=== PATIENT | female | born 1965 | race Caucasian/White ===

== ENCOUNTER 2017-12-07 21:55 | Emergency (ER) | payer OTHER ==
[2011-11-17 03:05] VITALS: BP 121/74
[2017-12-07] MEDS ORDERED: LEVALBUTEROL 1.25 MG/3 ML NEB ONE (22:25)
[2017-12-07] MEDS ORDERED: AZITHROMYCIN 250 MG TAB ONE (22:34)
--- NOTE | 2017-12-07 23:08 | ER ---
Nurse's Notes [facility] Name: Pat Bertrand Age: 52 yrs Sex: Female : 1965 Arrival Date: 12/07/2017 Time: 21:56 Bed 28 Private MD: Diagnosis: Bronchitis, not specified as acute or chronic Presentation: 12/07 22:00 Presenting complaint: Patient states: I have COPD and I have been having increasing SOB la1 throughout the day, pt respirations even and unlabored. Transition of care: patient was not received from another setting of care. Onset of symptoms was December 07, 2017. Initial Sepsis Screen: Does the patient meet any 2 criteria? No. Patient's initial sepsis screen is negative. Does the patient have a suspected source of infection? Yes: No. Patient's initial sepsis screen is negative. Care prior to arrival: None. 22:00 Method Of Arrival: Ambulatory la1 22:00 Acuity: ROSAURA 3 la1 Triage Assessment: 22:44 General: Appears in no apparent distress. General: Behavior is calm, cooperative. rk2 Respiratory: Onset: The symptoms/episode began/occurred. Respiratory: Reports shortness of breath cough that is the patient has mild shortness of breath. SURVEY TECHNOLOGIST: 22:44 unk rk2 Historical: - Allergies: 22:01 Advair Diskus; la1 22:01 Amitriptyline; la1 22:01 Cipro; la1 22:01 Codeine; la1 22:01 Crestor; la1 22:01 epi- lido combination; la1 22:01 HYDROCODONE; la1 22:01 Latex, Natural Rubber; la1 22:01 Levofloxacin; la1 22:01 Lipitor; la1 22:01 Lisinopril; la1 22:01 Metoprolol Tartrate; la1 22:01 Reglan; la1 22:01 Sulfa (Sulfonamide Antibiotics); la1 22:01 Ultram; la1 22:01 VENLAFAXINE; la1 22:01 Zantac; la1 - PMHx: 22:01 AFIB; Asthma; CFS; chronic bronchitis; COSA; CVA; Depression; Diabetes - NIDDM; garrett la1 bar; Fibromyalgia; High Cholesterol; hyperparathyroid; Hypertension; ibs; Myocardial infarction; prothrombin gene mutation; PVC; vitamin D deficincy; - Immunization history:: Adult Immunizations up to date. - Social history:: Smoking status: Patient/guardian denies using tobacco. Screenin:25 Abuse screen: Denies threats or abuse. rk2 22:25 Nutritional screening: No deficits noted. Tuberculosis screening: No symptoms or risk rk2 factors identified. Fall Risk None identified. Assessment: 22:25 Respiratory: Airway is patent. rk2 22:25 General: Appears in no apparent distress. well developed, well nourished, Behavior is rk2 calm, cooperative. Pain: Denies pain. Neuro: Level of Consciousness is alert, obeys commands, Oriented to person, place, time, situation. Cardiovascular: Rhythm is regular. Respiratory: Respiratory effort is even, unlabored, Derm: Skin is pink, warm \T\ dry. Vital Signs: 22:01 BP 134 / 78; Pulse 81; Resp 16; Temp 97.0; Pulse Ox 97% on R/A; Weight 111.13 kg; la1 Height 5 ft. 0 in. (152.40 cm); 23:22 BP 113 / 72; Pulse 89; Resp 17; Pulse Ox 97% on R/A; rk2 22:01 Body Mass Index 47.85 (111.13 kg, 152.40 cm) la1 ED Course: 21:56 Patient arrived in ED. ds1 22:01 Triage completed. la1 22:02 Arm band placed on left wrist. la1 22:05 [facility]C [facility] snw 22:05 Rohit Lockett MD is Attending Physician. snw 22:05 Britt River RN is Primary Nurse. rk2 22:25 Patient has correct armband on for positive identification. Bed in low position. Call rk2 light in reach. 22:41 Chest Pa And Lat (2 Views) XRAY Sent. rk2 22:46 Chest Pa And Lat (2 Views) XRAY In Process Unspecified. EDMS 23:23 No provider procedures requiring assistance completed. Patient did not have IV access rk2 during this emergency room visit. Administered Medications: 22:27 Drug: Xopenex 1.25 mg Route: Inhalation; rk2 23:22 Follow up: Response: No adverse reaction rk2 22:54 Drug: Zithromax 500 mg Route: PO; rk2 23:21 Follow up: Response: No adverse reaction rk2 Outcome: 23:07 Discharge ordered by MD. herrera 23:23 Discharged to home ambulatory. rk2 23:23 Condition: good 23:23 Discharge instructions given to patient, Prescriptions given X 2. 23:23 Patient left the ED. rk2 Signatures: Dispatcher [employer] EDMS Shira Luque, ROSA-C DRAGLINE MECHANIC-Margarita Mckenna ds1 Yogesh Giraldo RN RN la1 Britt River RN RN rk2
--- NOTE | 2017-12-07 23:08 | EDPHYS ---
Physician Documentation [facility] Name: Pat Bertrand Age: 52 yrs Sex: Female : 1965 Arrival Date: 12/07/2017 Time: 21:56 Bed 28 Private MD: ED Physician Rohit Lockett HPI: 12/07 22:32 This 52 yrs old Female presents to ER via Ambulatory with complaints of snw Breathing Difficulty. 22:32 The patient has shortness of breath with light activity. Onset: The symptoms/episode snw began/occurred suddenly, yesterday. Duration: The symptoms are continuous. The patient's shortness of breath has no apparent modifying factors. Severity of symptoms: At their worst the symptoms were moderate. The patient has experienced similar episodes in the past, pt states q 6 weeks lately. The patient has not recently seen a physician, the patient's primary care provider is Dr. Dr. Watkins. SHAREPOINT SPECIALIST: 22:44 unk rk2 Historical: - Allergies: 22:01 Advair Diskus; la1 22:01 Amitriptyline; la1 22:01 Cipro; la1 22:01 Codeine; la1 22:01 Crestor; la1 22:01 epi- lido combination; la1 22:01 HYDROCODONE; la1 22:01 Latex, Natural Rubber; la1 22:01 Levofloxacin; la1 22:01 Lipitor; la1 22:01 Lisinopril; la1 22:01 Metoprolol Tartrate; la1 22:01 Reglan; la1 22:01 Sulfa (Sulfonamide Antibiotics); la1 22:01 Ultram; la1 22:01 VENLAFAXINE; la1 22:01 Zantac; la1 - PMHx: 22:01 AFIB; Asthma; CFS; chronic bronchitis; COSA; CVA; Depression; Diabetes - NIDDM; garrett la1 bar; Fibromyalgia; High Cholesterol; hyperparathyroid; Hypertension; ibs; Myocardial infarction; prothrombin gene mutation; PVC; vitamin D deficincy; - Immunization history:: Adult Immunizations up to date. - Social history:: Smoking status: Patient/guardian denies using tobacco. ROS: 22:31 Constitutional: Negative for fever, chills, and weight loss, Eyes: Negative for injury, snw pain, redness, and discharge, ENT: Negative for injury, pain, and discharge, Neck: Negative for injury, pain, and swelling, Cardiovascular: Negative for chest pain, palpitations, and edema, Respiratory: Negative for shortness of breath and chest pain + bronchitic cough, no wheezing or pleuritic chest pain, Abdomen/GI: Negative for abdominal pain, nausea, vomiting, diarrhea, and constipation, Back: Negative for injury and pain, : Negative for injury, bleeding, discharge, and swelling, MS/Extremity: Negative for injury and deformity, Skin: Negative for injury, rash, and discoloration, Neuro: Negative for headache, weakness, numbness, tingling, and seizure. Exam: 22:30 Constitutional: This is a well developed, well nourished patient who is awake, alert, snw and in no acute distress. Head/Face: Normocephalic, atraumatic. Eyes: Pupils equal round and reactive to light, extra-ocular motions intact. Lids and lashes normal. Conjunctiva and sclera are non-icteric and not injected. Cornea within normal limits. Periorbital areas with no swelling, redness, or edema. ENT: Nares patent. No nasal discharge, no septal abnormalities noted. Tympanic membranes are normal and external auditory canals are clear. Oropharynx with no redness, swelling, or masses, exudates, or evidence of obstruction, uvula midline. Mucous membranes moist. Neck: Trachea midline, no thyromegaly or masses palpated, and no cervical lymphadenopathy. Supple, full range of motion without nuchal rigidity, or vertebral point tenderness. No Meningismus. Chest/axilla: Normal chest wall appearance and motion. Nontender with no deformity. No lesions are appreciated. Cardiovascular: Regular rate and rhythm with a normal S1 and S2. No gallops, murmurs, or rubs. Normal PMI, no JVD. No pulse deficits. Abdomen/GI: Soft, non-tender, with normal bowel sounds. No distension or tympany. No guarding or rebound. No evidence of tenderness throughout. Back: No spinal tenderness. No costovertebral tenderness. Full range of motion. Skin: Warm, dry with normal turgor. Normal color with no rashes, no lesions, and no evidence of cellulitis. MS/ Extremity: Pulses equal, no cyanosis. Neurovascular intact. Full, normal range of motion. Neuro: Awake and alert, GCS 15, oriented to person, place, time, and situation. Cranial nerves II-XII grossly intact. Motor strength 5/5 in all extremities. Sensory grossly intact. Cerebellar exam normal. Normal gait. 22:30 Respiratory: the patient does not display signs of respiratory distress, Respirations: no acute changes, Breath sounds: are clear throughout, bronchitic cough. Vital Signs: 22:01 BP 134 / 78; Pulse 81; Resp 16; Temp 97.0; Pulse Ox 97% on R/A; Weight 111.13 kg; la1 Height 5 ft. 0 in. (152.40 cm); 23:22 BP 113 / 72; Pulse 89; Resp 17; Pulse Ox 97% on R/A; rk2 22:01 Body Mass Index 47.85 (111.13 kg, 152.40 cm) la1 MDM: 22:05 Patient medically screened. snw 23:07 Data reviewed: vital signs, nurses notes. Data interpreted: Pulse oximetry: on room air snw is 97 %. Interpretation: normal. 12/07 22:20 Order name: Chest Pa And Lat (2 Views) XRAY snw Administered Medications: 22:27 Drug: Xopenex 1.25 mg Route: Inhalation; rk2 23:22 Follow up: Response: No adverse reaction rk2 22:54 Drug: Zithromax 500 mg Route: PO; rk2 23:21 Follow up: Response: No adverse reaction rk2 Disposition: 12/08 01:52 Co-signature as Attending Physician, Rohit Lockett MD. va2 Disposition: 12/07/17 23:07 Discharged to Home. Impression: Bronchitis, not specified as acute or chronic. - Condition is Stable. - Discharge Instructions: Acute Bronchitis, Cool Mist Vaporizers. - Prescriptions for Albuterol Sulfate 90 mcg/actuation Inhalation - inhale 2 puff by INHALATION route every 4-6 hours; 1 Inhaler. Zithromax 500 mg Oral Tablet - take 1 tablet by ORAL route once daily for 5 days; 5 tablet. - Medication Reconciliation Form, Thank You Letter, Antibiotic Education, Prescription Opioid Use form. - Follow up: Private Physician; When: 2 - 3 days; Reason: Recheck today's complaints, Continuance of care, Re-evaluation by your physician. Follow up: Emergency Department; When: As needed; Reason: Worsening of condition. Signatures: Dispatcher [employer] EDMS Shira Luque, FUEL AGENT-C FUEL AGENT-Csnw Yogesh Giraldo RN RN la1 Rohit Lockett MD MD ma2 Britt River RN RN rk2 Corrections: (The following items were deleted from the chart) 12/07 23:23 23:07 12/07/2017 23:07 Discharged to Home. Impression: Bronchitis, not specified as rk2 acute or chronic. Condition is Stable. Forms are Medication Reconciliation Form, Thank You Letter, Antibiotic Education, Prescription Opioid Use. Follow up: Private Physician; When: 2 - 3 days; Reason: Recheck today's complaints, Continuance of care, Re-evaluation by your physician. Follow up: Emergency Department; When: As needed; Reason: Worsening of condition. snw
--- NOTE | 2017-12-08 11:33 | RAD REPORT ---
EXAM DESCRIPTION: RAD - Chest Pa And Lat (2 Views) - 12/07/2017 10:49 pm CLINICAL HISTORY: Shortness of breath COMPARISON: 01/28/2017, 12/20/2015 FINDINGS: The lungs are clear. The heart is upper limit of normal in size. Dual lead pacer device is place. No displaced fractures.
== END 2017-12-07 23:23 | disposition home or self-care (01) ==
LOC: ER 21:55
DX: J40 Bronchitis, not specified as acute or chronic (principal); I10 Essential (primary) hypertension; I25.2 Old myocardial infarction; Z88.1 Allergy status to other antibiotic agents; Z88.2 Allergy status to sulfonamides; Z88.5 Allergy status to narcotic agent; Z88.8 Allergy status to other drugs, medicaments and biological substances; Z91.040 Latex allergy status
CPT/HCPCS: 71046; 99284

== ENCOUNTER 2019-06-15 06:02 | Day surgery (SDC) | payer OTHER ==
--- NOTE | 2019-06-12 10:42 | RAD REPORT ---
EXAM DESCRIPTION: RAD - Chest Pa And Lat (2 Views) - 06/12/2019 10:35 am CLINICAL HISTORY: preop Chest pain. COMPARISON: Chest Pa And Lat (2 Views) dated 12/07/2017; Chest Single View dated 01/28/2017; Chest Pa A nd Lat (2 Views) dated 12/20/2015; CHEST SINGLE VIEW dated 07/08/2012 FINDINGS: The lungs are clear. The heart is normal in size. No displaced fractures. Dual lead pacer device is in place. IMPRESSION: No acute or concerning finding suspected.
[2019-06-12 11:10] LABS: Absolute Lymphocytes (CBC) 2.7 K/uL (0.7-4.9); Hematocrit 39.1 % (36.0-45.0); Lymphocytes % 34.8 % (15.3-44.8); MPV 9.5 fL (7.6-11.3); RBC Red Blood Cell Count 4.33 M/uL (3.86-4.86)
[2019-06-12 11:15] LABS: Protime INR 1.79
--- OUTSIDE RECORDS SUMMARY | 2019-06-15 06:08 | XMS REPORT | Summary of Care ---
:1966 Author Name NIK PEÑA N.P. Address Unavailable Unavailable , Care Team Providers Name Role Phone NIK PEÑA N.P. Unavailable Unavailable KATHLEEN MONTANO, ANDRIA CHISHOLM Unavailable Unavailable JOSE ALFARO [place], EDI Caba Unavailable Unavailable XENIA MONTANO [place], GEORGINA Haines Unavailable Unavailable Unavailable Unavailable Unavailable Functional Status Name Dates Details Functional status health issues are not documented Status: Name Dates Details Cognitive status health issues are not documented Status: Problems Name Dates Details Malabsorption due to intolerance, not elsewhere classified (579.8, K90.49) Status: Active Malnutrition (263.9, E46) Status: Active Vitamin D deficiency (268.9, E55.9) Status: Active Medications Name Dates Details Vitamin D (Ergocalciferol) 97741 UNIT Oral Capsule Take 1 capsule two times per week Quantity: 8 Refills: 3 NIK PEÑA N.P. Start : 24-Dec-2017 Active Allergies and Adverse Reactions Name Dates Details Allergy history not documented Status: Past Medical History Name Dates Details History of Malabsorption due to intolerance, not elsewhere classified (579.8, K90.49) Status: Resolved History of Malabsorption due to intolerance, not elsewhere classified (579.8, K90.49) Status: Resolved History of malnutrition (V12.1, Z86.39) Status: Resolved History of malnutrition (V12.1, Z86.39) Status: Resolved Procedures Procedure Dates Details [LH] CBC (without differential) Date: 06-Oct-2018 [QL] COMPREHENSIVE METABOLIC PANEL W/O eGFR Date: 06-Oct-2018 [QLH] FOLATE, SERUM Date: 06-Oct-2018 [QLH] HEMOGLOBIN A1c Date: 06-Oct-2018 [QL] IRON AND TOTAL IRON BINDING CAPACITY Date: 06-Oct-2018 [QL] LIPID PANEL Date: 06-Oct-2018 [QL] PTH, INTACT (WITHOUT CALCIUM) Date: 06-Oct-2018 [QL] TSH, 3RD GENERATION Date: 06-Oct-2018 [QL] VITAMIN A (RETINOL) Date: 06-Oct-2018 [[facility]] VITAMIN B1, WHOLE BLOOD Date: 06-Oct-2018 [[facility]] VITAMIN B12 Date: 06-Oct-2018 [[facility]] VITAMIN D, 25-HYDROXY, LC/MS/MS Date: 06-Oct-2018 [[facility]] VITAMIN E (TOCOPHEROL) Date: 06-Oct-2018 Immunization Name Dates Details Immunizations not documented Social History Name Dates Details Unknown if ever smoked Vital Signs Date Test Result Details No Known Vitals to report Results Date Description Value Details Results not documented Plan of Care Name Dates Details Planned Observations Planned Goals not documented Planned Encounters Appointment; NIK PEÑA NP On: 06-Oct-2018 12:30 Interventions Provided Labs/Procedures/Imaging[] CBC (without differential); To Be Done: 06 Oct 2018[ ] COMPREHENSIVE METABOLIC PANEL W/O eGFR; To Be Done: 06 Oct 2018[[facility]] FOLATE , SERUM; To Be Done: 06 Oct 2018[[facility]] HEMOGLOBIN A1c; To Be Done: 06 Oct 2018[ [facility]] IRON AND TOTAL IRON BINDING CAPACITY; To Be Done: 06 Oct 2018[[facility]] LIPID PANEL; To Be Done: 06 Oct 2018[[facility]] PTH, INTACT (WITHOUT CALCIUM); To Be Done: 06 Oct 2018[[facility]] TSH, 3RD GENERATION; To Be Done: 06 Oct 2018[[facility]] VITAMIN A ( RETINOL); To Be Done: 06 Oct 2018[[facility]] VITAMIN B1, WHOLE BLOOD; To Be Done: 06 Oct 2018[[facility]] VITAMIN B12; To Be Done: 06 Oct 2018[[facility]] VITAMIN D, 25-HYDROXY, LC/MS/MS; To Be Done: 06 Oct 2018[[facility]] VITAMIN E (TOCOPHEROL); To Be Done: 06 Oct 2018 Instructions Name Dates Details Instructions not documented Encounters Appointment; EDI GARCIA DPM On: 21-Dec-2016 11:15 Encounter Diagnosis: Problem not documented Appointment; EDI GARCIA DPM On: 09-Jan-2017 11:30 Encounter Diagnosis: Problem not documented Appointment; EDI GARCIA DPM On: 18-Jan-2017 8:45 Encounter Diagnosis: Problem not documented Appointment; EDI GARCIA DPM On: 15-Feb-2017 8:45 Encounter Diagnosis: Problem not documented Appointment; GEORGINA MICHAELS M.D. On: 16-Dec-2017 8:30 Encounter Diagnosis: Problem not documented Appointment; JULIUS LINDQUIST RD On: 09-Jan-2018 13:00 Encounter Diagnosis: Problem not documented Appointment; NIK PEÑA NP On: 24-Jan-2018 13:30 Encounter Diagnosis: Problem not documented Appointment; JULIUS LINDQUIST RD On: 20-Feb-2018 12:45 Encounter Diagnosis: Problem not documented Appointment; JULIUS LINDQUIST RD On: 20-Mar-2018 15:00 Encounter Diagnosis: Problem not documented Appointment; GEORGINA MICHAELS M.D. On: 02-Apr-2018 10:00 Encounter Diagnosis: Problem not documented Appointment; GEORGINA MICHAELS M.D. On: 14-Apr-2018 9:00 Encounter Diagnosis: Problem not documented Appointment; NIK PEÑA NP On: 02-May-2018 13:30 Encounter Diagnosis: Problem not documented Appointment; GEORGINA MICHAELS M.D. On: 26-May-2018 10:00 Encounter Diagnosis: Problem not documented Appointment; NIK PEÑA NP On: 04-Jul-2018 12:45 Encounter Diagnosis: Problem not documented Appointment; NIK PEÑA NP On: 07-Jul-2018 12:30 Encounter Diagnosis: Problem not documented Appointment; NIK PEÑA NP On: 06-Oct-2018 12:30 Encounter Diagnosis: Problem not documented
[2019-06-15] MEDS ORDERED: NA CHLORIDE 0.9% 1,000 ML ONE (06:18)
[2019-06-15 07:19] LABS: Protime INR 1.12
[2019-06-15] MEDS ORDERED: PROPOFOL 200 MG/20 ML VIAL IV ONE ×2 (08:16→10:04)
[2019-06-15] MEDS ORDERED: FENTANYL CITR 100 MCG/2 ML ONE ×2 (08:16→10:04)
[2019-06-15] MEDS ORDERED: LIDOCAINE 2% MPF 5 ML VIAL ONE ×3 (08:17→10:04)
[2019-06-15] MEDS ORDERED: MIDAZOLAM HCL 2 MG/2 ML INJ ONE ×2 (08:17→10:04)
[2019-06-15] MEDS ORDERED: dexAMETHasone 10 MG/ML VIAL ONE ×2 (08:17→08:35)
[2019-06-15] MEDS ORDERED: ONDANSETRON 4 MG/2 ML VIAL ONE ×2 (08:18→10:04)
[2019-06-15] MEDS ORDERED: NS 0.9% VIAL 0 ML ONE (08:34)
[2019-06-15] MEDS ORDERED: ROPLVACAINE HCL 0 ML ONE (08:35)
[2019-06-15] MEDS ORDERED: CEFAZOLIN/SWI 1gm 1 GM/10 ML SYR ONE (10:10)
--- NOTE | 2019-06-15 10:51 | RAD REPORT ---
EXAM DESCRIPTION: US - Brst,Preop NL Wire Init w/Guid - 06/15/2019 9:57 am CLINICAL HISTORY: BREAST MASS/CYST, right breast with knee localization x2 COMPARISON: Prior mammogram and ultrasound studies March and July 2018 TECHNIQUE: Needle localization was performed of 2 masses in the right breast. The localization proce dure for both lesions detailed on the other localization report. IMPRESSION: Right breast needle localization procedure x2. Please see the other localization report.
--- NOTE | 2019-06-15 11:00 | RAD REPORT ---
EXAM DESCRIPTION: US - Brst,Preop NL Wire Init w/Guid - 06/15/2019 9:57 am CLINICAL HISTORY: MASSx2, right breast COMPARISON: Mammogram and ultrasound studies July and March 2019 TECHNIQUE: Patient presents for preoperative needle localization of 2 masses previously detailed. Pr ior March ultrasound study detailed a 5 x 4 mm hypoechoic mass in the 12 o'clock right breast. An additional 4 x 3 mm hypoechoic oval mass present in the 2 o'clock right breast. Preliminary imaging identified the small 5 mm hypoechoic mass in the 11 o'clock right breast 1 centim eter deep to the skin surface. This matches the prior imaging. Preliminary imaging also identified th e small oval anechoic to hypoechoic mass in the 2 o'clock right breast. Preliminary imaging also iden tified that the patient has prominent tortuous ducts. No intraductal mass was identified on this pre surgical exam. Consent had been obtained as part of the surgical is consent. Right breast was prepped and draped in the usual sterile fashion. From a medial approach skin and thomas per tissues were anesthetized with 1% lidocaine. A 5 centimeter long [place] mammo lock needle was adva nced. Tip was placed and abutted the inferior margin of the 11 o'clock mass. Also from a medial approach the 2 o'clock mass was localized. Skin and deeper tissues were anesthetiz ed with 1% lidocaine. A [place] mammo lock 5 centimeter long needle was advanced. Tip was placed at the inferior margin of the small mass and hook wire set. Patient tolerated procedure well and was transferred back to the surgical holding area pending excisi onal biopsy. IMPRESSION: Right breast needle localization x2 as detailed above.
[2019-06-15] MEDS ORDERED: Mastisol Adhesive Liq ONE (11:07)
--- NOTE | 2019-06-15 11:16 | P.BOP ---
Preoperative diagnosis: tender right breast mass x 2 Postoperative diagnosis: same Primary procedure: Right breast lumpectomy x 2 neddle localized Service Line Coordinator: JIA MONTOYA (GROUNDS MAINTENANCE WORKER) Estimated blood loss: <10cc Specimen: lump x 2 Findings: lesion within the specimen with two intact wires by dr norton. Anesthesia: General Complications: None Transferred to: Recovery Room Condition: Good
--- NOTE | 2019-06-15 11:22 | RAD REPORT ---
EXAM DESCRIPTION: US - Surgical Specimen - 06/15/2019 11:04 am FINDINGS: A single surgical specimen was obtained incorporating both areas of localization Evaluation of the surgical specimen shows both lesions to be contained within the specimen. The addit ional tortuous ducts and hypoechoic masses in this region of the breast also seen.
[2019-06-15] MEDS: MORPHINE 4 MG/ML SYR ONE ×2 (11:33→11:41)
[2019-06-15 11:46] VITALS: O2SAT 100
[2019-06-15] MEDS ORDERED: IBUPROFEN 200 MG TAB PO ONE (12:32)
[2019-06-15] MEDS ORDERED: IBUPROFEN 400 MG TAB ONE (12:33)
[2019-06-15 12:49] VITALS: BP 121/84; TEMP 97.1
--- NOTE | 2019-06-16 01:18 | OP ---
Date of Procedure: 06/15/2019 Surgeon: Bob Carr MD Hearing Aid Repairer: Kathya Rea. Preoperative Diagnosis: Two tender right breast masses at about 12 o'clock and 2 o'clock. Postoperative Diagnosis: Two tender right breast masses at about 12 o'clock and 2 o'clock. Procedure: Right breast lumpectomy at 12 o'clock needle localized and another right breast lumpectom y at 2 o'clock needle localized. Estimated Blood Loss: Less than 10 mL. Specimens: Lumps x2. Findings: Lesion within the specimen by Dr. Vance with intact wires. Anesthesia: General. Indications: This is the case of a 54-year-old patient, who comes with 2 masses. She wants one of t hem excised. There is pain and discomfort. She understands the pathology. She understood her optio ns. She still wanted it excised. Since they are deep, I asked her if we can remove that and if we c an localize that area with a radiologist and she did agree. Patient [facility] this [facility], where she received localization of the 2 areas and then moved to the OR and making sure the nee dle are intact without any dislodgement on arrival. We explained the patient the benefits, alternati ves, and risks of excision, which included, but not limited to infection, bleeding, damage to adjacen t structures, anesthesia complication, seroma, hematoma, abscess, [place], even . She also understan ds this may not relieve any symptoms. She might need more than one surgical intervention. Description Of Procedure: When she came from [facility]iology [facility], patient was brought to the operating r oom, placed in supine position. Anesthesia was done without complication. The right chest and breas t were prepped and draped in sterile fashion making sure we do not dislodge the needles. [place] wer e left intact. I had noted that if we make 1 incision, we can address 2 issues at the same time sinc e that is not that far away. So, we made 1 simple incision. Identified the wire in each side. Tres dontae the needle. Kept the wire was fixed to the tissue with an Allis clamp. Same with the second one and we were able to remove 1 core of tissue, sent to the radiologist, who confirmed the wires were i ntact and serial lesions within the specimen. The area was irrigated. Hemostasis obtained. Then, w e proceeded to close the area with 3-0 chromic and Steri-Strips on top. Sponge count and instrument counts were correct. Patient tolerated the procedure well. Patient was sent to recovery in stable c ondition. JOO/MABER Voice ID: [id number] Report ID: [id number]
--- NOTE | 2019-06-16 01:24 | DS ---
Date of Discharge: 06/15/2019 Diagnosis: Tender right breast mass x2. Procedure: Right breast lumpectomy x2, needle localized. Disposition: Home. Activity: As tolerated. No heavy lifting. Followup: Follow up in my office in 1 week. Call for appointment [phone]. Discharge Instructions: Keep area dry for 48 hours, then may shower. Keep Steri-Strips intact. Pat ient advised to use breast support. Discharge Medications: For medications, see orders. JOO/AMBER Voice ID: [id number] Report ID: [id number]
== END 2019-06-15 13:25 | disposition home or self-care (01) ==
LOC: OR 06:02
PROVIDERS: ATTEND Surgery
PROC: 0HBT0ZZ Excision of Right Breast, Open Approach (ICD-10-PCS; principal; 2019-06-15 09:30)
DX: D24.1 Benign neoplasm of right breast (principal); N60.21 Fibroadenosis of right breast; E11.9 Type 2 diabetes mellitus without complications; I10 Essential (primary) hypertension; I48.91 Unspecified atrial fibrillation; J44.9 Chronic obstructive pulmonary disease, unspecified; G47.30 Sleep apnea, unspecified; J45.909 Unspecified asthma, uncomplicated; M79.7 Fibromyalgia; M19.90 Unspecified osteoarthritis, unspecified site; E21.3 Hyperparathyroidism, unspecified; K58.9 Irritable bowel syndrome, unspecified; K76.0 Fatty (change of) liver, not elsewhere classified; I25.2 Old myocardial infarction; E66.9 Obesity, unspecified; Z68.42 Body mass index [BMI] 45.0-49.9, adult; Z95.0 Presence of cardiac pacemaker; Z86.73 Personal history of transient ischemic attack (TIA), and cerebral infarction without residual deficits; Z79.01 Long term (current) use of anticoagulants; Z88.2 Allergy status to sulfonamides; Z88.6 Allergy status to analgesic agent; Z88.8 Allergy status to other drugs, medicaments and biological substances; Z90.49 Acquired absence of other specified parts of digestive tract; Z91.040 Latex allergy status; Z80.49 Family history of malignant neoplasm of other genital organs; Z82.49 Family history of ischemic heart disease and other diseases of the circulatory system
CPT/HCPCS: 85025; 80048; 36415 ×2; 85610 ×2; 82947 ×2; 88305; 85730 ×2; 71046; 19286; 76098; 19285; 19301; J2704; J2250; J3010; J0690; J7030; J2405; J1100; J2795

== ENCOUNTER 2020-06-15 10:00 | Day surgery (SDC) | payer OTHER ==
[2011-11-17 03:05] VITALS: BP 121/74
--- NOTE | 2020-06-15 14:40 | RAD REPORT ---
EXAM DESCRIPTION: US - Breast Core BX w/US Guidance - 06/15/2020 11:44 am CLINICAL HISTORY: N63.14, N63.23, N63.22 COMPARISON: Mammogram and ultrasound studies May 23, 2020 TECHNIQUE: The patient presents for ultrasound-guided biopsy of a previously detailed right breast m ass and 3 masses of the left breast. MRI imaging was recommended for the patient after mammography ; however, due to a pacemaker, the patient cannot undergo that examination. The ultrasound-guided core biopsy procedure, risks and alternatives were discussed with the patient i n detail. After answering all questions, both oral and written consent were obtained. Time out proced ure was performed. Patient had no contraindicated allergy. Patient was off Coumadin for 3 days prior to the procedure. Prior imaging studies were reviewed. The initial mass be biopsied was the 8 x 8 x 4 mm hypoechoic lesion in the 7 o'clock right breast. Th e right breast was prepped and draped in the usual sterile fashion. From an inferior approach, skin a nd deeper tissues were anesthetized with 1% lidocaine. Under direct sonographic visualization a 14 ga uge vacuum assisted core biopsy needle was advanced and placed at the margin of the mass. There were a total of 2 core biopsies obtained under direct sonographic guidance. The mass did appear to have di stortion in contour supporting transit of the biopsy needle through the small mass. At the conclusion of the procedure under sonographic guidance a post biopsy clip was placed. The second mass subjected to biopsy was a 7 millimeter oval hypoechoic mass in the 6 o'clock left john ast. The mass was again identified. The left breast was prepped and draped for all 3 lesions. For thi s biopsy procedure from a lateral approach the skin and deeper tissues were anesthetized with 1% lido darrin. Under sonographic guidance a 14 gauge vacuum assisted biopsy needle was advanced and placed at the lateral margin of the mass. There were a total of 2 core biopsies obtained. The mass does appear to be distorted in contour indicating transit of the biopsy needle through the mass. Under sonograph ic guidance a localization clip was placed. The third lesion subjected to biopsy was a 6-7 mm mostly cystic mass superficial 12 o[address] From a lateral approach the skin and deeper tissues were anesthetized with 1% lidocaine. The cyst ic mass had a small 3 mm solid nodule along the medial margin. Under sonographic guidance a 22 gauge needle was used to access the cystic mass which was partially aspirated. The aspirate was retained an d given to pathology for part of the histology assessment. Through the same access site a 14 gauge bi opsy needle was advanced. The biopsy traverse the cystic component with the primary focus of the need le directed towards the small soft tissue mass component. After initial biopsy the cystic component c ollapsed. The small mural nodule component was no longer distinguishable from the surrounding tissues . No additional biopsy performed. Under sonographic guidance and localization clip was placed. The fourth and final lesions subjected to biopsy was approximately 10 millimeter oval hypoechoic mass in the 10 o'clock left breast. From a lateral approach the skin and deeper tissues were anesthetized with 1% lidocaine. A 14 gauge biopsy needle was advanced under sonographic guidance and placed at th e lateral margin. A total of 3 14 gauge biopsies were obtained through this mass. At the conclusion o f the procedure under sonographic guidance a localization clip was placed. After each biopsy, hemostasis was obtained at the skin surface and at the puncture site. Biopsy sites were monitored throughout the course of the procedure. No hematoma identifiable at any of the biopsy sites. Sterile bandaging placed at each puncture site. Patient tolerated the procedure well with no apparent complications at the conclusion of the fourth a nd final biopsy. Postprocedure care and precaution instructions were discussed with the patient. All biopsy material was given to pathology for cytology/histology assessment. IMPRESSION: 1. Ultrasound-guided core biopsy was performed of the right breast mass and 3 left breas t masses. All obtained material was given to pathology for histologic assessment. 2. Post biopsy localization clip was placed under ultrasound guidance at each biopsy site.
--- NOTE | 2020-06-16 08:30 | RAD REPORT ---
EXAM DESCRIPTION: US - Breast Core BX Addtnl - 06/15/2020 11:44 am CLINICAL HISTORY: MASS [id number] breast masses for ultrasound-guided biopsy COMPARISON: Mammography and sonography studies May 23, 2020 TECHNIQUE: The patient presented for ultrasound-guided biopsy of one right breast mass and three lef t breast masses. MRI was recommended for the patient; however, the presence of a pacemaker precluded that study from being performed. The right breast mass and three left breast masses were subjected to biopsy. The report of the proced ure and findings for the second-fourth biopsies incorporated into the initial biopsy report. IMPRESSION: 1. Ultrasound-guided biopsy was performed of one right breast mass and three left breast masses. 2. The procedure and findings for the second-fourth biopsies and post biopsy clip placements incorpor ated into the initial biopsy report.
--- NOTE | 2020-06-16 08:38 | RAD REPORT ---
EXAM DESCRIPTION: US - Breast Core BX Addtnl - 06/15/2020 11:44 am CLINICAL HISTORY: Bilateral breast masses for ultrasound-guided biopsy COMPARISON: Mammography and sonography studies May 23, 2020 TECHNIQUE: The patient presented for ultrasound-guided biopsy of one right breast mass and three lef t breast masses. MRI was recommended for the patient; however, the presence of a pacemaker precluded that study from being performed. The right breast mass and three left breast masses were subjected to biopsy. The report of the proced ure and findings for the second-fourth biopsies incorporated into the initial biopsy report. IMPRESSION: 1. Ultrasound-guided biopsy was performed of one right breast mass and three left breast masses. 2. The procedure and findings for the second-fourth biopsies and post biopsy clip placements incorpor ated into the initial biopsy report.
--- OUTSIDE RECORDS SUMMARY | 2020-08-18 09:27 | XMS REPORT | Clinical Summary ---
:1965 Author Organization [facility] Address [address] [place] [address] Care Team Providers Name Role Phone June Guzman MD, Zach Primary Care Provider Allergies Active Allergy Reactions Severity Noted Date Comments Sulfamethoxazole-Trimeth Rash Low 02/13/2019 oprim Ciprofloxacin Anaphylaxis High 02/13/2019 Codeine Itching 02/13/2019 "Internal itchi ng" Rosuvastatin Other (See Comments) 02/13/2019 Body ac hes, urinary difficulty Hydrocodone Itching 02/13/2019 Latex Rash Low 02/13/2019 Levofloxacin Anaphylaxis High 02/13/2019 Quinolones Anaphylaxis High 02/13/2019 Sulfa (Sulfonamide Rash Low 02/13/2019 Antibiotics) Tramadol Other (See Comments) 02/13/2019 "Stops breathing" Medications Medication Sig Dispensed Refills Start Date End Date Status warfarin (COUMADIN) 4 MG Take 4 mg by 0 Active tablet mouth daily. warfarin (COUMADIN) 1 MG Take 0.5 mg 0 Active tablet by mouth daily. metFORMIN XR Take 1,000 mg 0 Act [place] (GLUCOPHAGE-XR) 500 mg 24 by mouth 2 hr tablet (two) times a day. insulin 70/30 NPH and Inject 30 0 Active regular human (HumuLIN Units under 70/30) 100 unit/mL (70-30) the skin 2 injection (two) times a day. pravastatin (PRAVACHOL) 40 Take 40 mg by 0 Active MG tablet mouth daily. cetirizine (ZyrTEC) 10 MG Take 10 mg by 0 Active tablet mouth daily. hydroCHLOROthiazide Take 25 mg by 0 Active (HYDRODIURIL) 25 MG tablet mouth daily. DULoxetine (CYMBALTA) 60 MG Take 60 mg by 0 Active capsule mouth daily. DULoxetine (CYMBALTA) 30 MG Take 30 mg by 0 Active capsule mouth daily. Active Problems Not on file Surgical History Surgery Date Site/Laterality Comments HYSTERECTOMY TOTAL ABDOMINAL BREAST LUMPECTOMY benign TONSILLECTOMY AND ADENOIDECTOMY CHOLECYSTECTOMY, LAPAROSCOPIC SECTION TUBAL LIGATION TRIGGER FINGER RELEASE Left SEPTOPLASTY INSERT / REPLACE / REMOVE PACEMAKER CARDIAC ELECTROPHYSIOLOGY 02/13/2019 N/A Proced ure: EP REMOVE PROCEDURE REPLACE PACEMAKE R GENERATOR; Surg lisy: Iva Che Jr., MD; Location: [facility] Formulation Chemist Invasive Locatio n; Service: Cardiov ascular; Laterality: N/A; Medical devices from this surgery are in t he Implants section . Medical History Medical History Date Comments Asthma Bronchitis Chronic Bundle branch block, right AV block, 1st degree Coronary artery disease Heart attack (HCC) x2 Stroke (HCC) 2010, 2014 Atrial fibrillation (HCC) Hypertension Pulmonary embolism (HCC) Diabetes (HCC) Prothrombin gene mutation (HCC) Family History Medical History Relation Name Comments Arrhythmia Mother Relation Name Status Comments Mother Social History Tobacco Use Types Packs/Day Years Used Date Never Smoker Smokeless Tobacco: Never Used Alcohol Use Drinks/Week oz/Week Comments Never Alcohol Habits Answer Date Recorded How often do you have a drink containing alcohol? Never 02/13/2019 How many drinks containing alcohol do you have on a typical Not asked day when you are drinking? How often do you have six or more drinks on one occasion? No t asked Sex Assigned at Date Recorded Not on file Last Filed Vital Signs Not on file Plan of Treatment Not on file Implants Implanted Type Area Insurance Billing Clerk Device Shelf Model / Identifier Expiration Serial / Date Lot Assurity Mri Dual - [id number] Cardiac Pacemaker N/A: 03/28/2020 [id number] / Implanted: Qty: 1 on 02/13/2019 by Iva Che Jr., M D at [facility] Generators N/A [id number] / [id number] Envelope Pcemkr Antbactl Fully Resorb Aigisrxr - [id number] Cardiovascular N/A: [employer] [id number] / Implanted: 02/13/2019 at [facility] (Quantity not on file) Implants N/A / Results Not on fileafter 08/18/2019 Insurance Payer Benefit Plan / Subscriber ID Effective Dates Phone Addre ss Type Group MEDICARE MEDICARE PART A [id number] 2013-Present [facility] [place] Medicare AND B Advance Directives For more information, please contact: [phone] Type Date Recorded Patient Toter Explanati on Advance Directives, Living Will and Medical Power of Poultry Husbandman
--- OUTSIDE RECORDS SUMMARY | 2020-08-18 09:28 | XMS REPORT | Continuity of Care Document ---
:1965 Author Organization [facility] t Address [address] [place] [address] Care Team Providers Name Role Phone June Guzman MD, Ede Primary Care Physician [phone] ARTI Attending Clinician Unavailable Sada MONTANO, CTobin Attending Clinician SILVANO Attending Clinician Unavailable CASEY Attending Clinician Unavailable LEXA Attending Clinician Unavailable XENIA Attending Clinician Unavailable CASEY Attending Clinician Unavailable NATHAN Attending Clinician Unavailable JOSE Attending Clinician Unavailable JOSE Attending Clinician Unavailable Payers Payer Name Policy Type Policy Effective Date Expiration Date Sour ce Number CIGNACIGNA OPEN [id number] 2001 [place] ACCESS/NETWORKxx 00:00:00 Methodis t [id number] 2-PresentHMO Problems Condition Condition Condition Status Onset Resolution Last Treating Co mments Source Name Details Category Date Date Treatment Clinician Date Vitamin D Vitamin D Problem Active Uni vers deficiency deficiency it y of [place] Physici ans History of History of Problem Resolve Univers malnutriti malnutriti d it y of on on [place] Physici ans GERD GERD Problem Active Univers (gastroeso (gastroeso it y of phageal phageal [place] reflux reflux Physici disease) disease) ans Malabsorpt Malabsorpt Problem Active U nivers ion due to ion due to it [place] of intoleranc intoleranc [place], not e, not Physici elsewhere elsewhere ans classified classified Malnutriti Malnutriti Problem Active U nivers on on ity of [place] Physici ans Diplopia Diplopia Problem Active Unive rs ity of [place] Physici ans MYRTLE MYRTLE Problem Active Univers (obstructi (obstructi it y of ve sleep ve sleep [place] apnea) apnea) Physici ans History of History of Problem Resolve Univers cardiac cardiac d [place]y of arrhythm[place] arrhythmia [place] ans Allergies, Adverse Reactions, Alerts Allergy Allergy Status Severity Reaction(s) Onset Inactive Treating Comm ents Source Name Type Date Date Clinician Sulfamet Propensi Active Rash [place] hoxazole ty to 02-13 Methodi -Trimeth adverse 00:00: st oprim reaction 00 s to drug Ciproflo Propensi Active Anaphylaxis [place] xacin ty to 02-13 Methodi adverse 00:00: st reaction 00 s to drug Codeine Propensi Active Itching "Internal Haroldo ston ty to 02-13 itching" Methodi adverse 00:00: st reaction 00 s to drug Rosuvast Propensi Active Other (See Body [place] atin ty to Comments) 02-13 aches, Methodi adverse 00:00: urinary st reaction 00 difficult s to y drug Hydrocod Propensi Active Itching [place] one ty to 02-13 Methodi adverse 00:00: st reaction 00 s to drug Latex Propensi Active Rash [place] ty to 02-13 Methodi adverse 00:00: st reaction 00 s to drug Levoflox Propensi Active Anaphylaxis [facility] acin ty to 02-13 Methodi adverse 00:00: st reaction 00 s to drug Quinolon Propensi [facility] 02[facility]13 Methodi adverse 00:00: st reaction 00 s to drug Sulfa Propensi Active Rash [place] (Sulfona ty to 02-13 Methodi mide adverse 00:00: st Antibiot reaction 00 ics) s to drug Tramadol Propensi Active Other (See "Stops [place] ty to Comments) 02-13 breathing Meth dae adverse 00:00: " st reaction 00 s to drug Adhesive Allergy Active Univers Tape to drug ity of TAPE (finding [place] ) Physici ans Latex Allergy Active Univers Gloves to drug ity of ([facility] ) Physici ans Levaquin Allergy Active Univers to drug ity of (finding [place] ) Physici ans sulfa Allergy Active Univers to drug ity of (finding [place] ) Physici ans Advair Propensi Active Shortness of Un katty Diskus ty to breath ity of MISC adverse [place] reaction Physici s to ans drug (finding ) Cipro Propensi Active Anaphylaxis Uni vers ty to ity of adverse [place] reaction Physici s to ans drug (finding ) Crestor Propensi Active Fatigue Univer s ty to ity of adverse [place] reaction Physici s to ans drug (finding ) Floxin Propensi Active Anaphylaxis Uni vers ty to ity of adverse [place] reaction Physici s to ans drug (finding ) hydrocod Allergy Active Itching, Unive rs one to drug Irritability ity of (finding [place] ) Physici ans Ultram Allergy Active Univers to drug ity of (finding [place] ) Physici ans Family History Family Member Diagnosis Comments Start Date Stop Date Source Natural mother Arrhythmia [place] [facility] Natural mother No Known Problems Haroldo archibald Jainism Natural father No Known Problems Haroldo archibald Jainism Social History Social Habit Start Date Stop Date Quantity Comments Source History [facility] Alcohol Std Jainism Drinks History [facility] Alcohol Binge Jainism Sex Assigned At F [place] Jainism Tobacco use and 2019-09-14 2019-09-14 Never used [place] exposure 00:00:00 00:00:00 Jainism Alcohol intake 2019-09-14 2019-09-14 Current drinker of Qamar castillo 00:00:00 00:00:00 alcohol (finding) Methodi st Alcohol Comment 2019-09-14 2019-09-14 occasionally like 2 [place] 00:00:00 00:00:00 x per month Jainism History [facility] 2019-02-13 2019-02-13 1 [place] Alcohol Frequency 00:00:00 00:00:[address] Smoking Status Start Date Stop Date Source Never smoker [place] Methodis t Medications Ordered Filled Start Stop Current Ordering Indication Dosage Frequency Signature Comments Components Source Medication Medication Date Date Medication? Clinician (SIG) Name Name warfarin 2018- Yes 4mg QD Take 4 mg [place] (COUMADIN) 7-19 by mouth Metho di 4 MG tablet 11:30: daily. st 40 warfarin 2019- Yes .5mg QD Take 0.5 [place] (COUMADIN) 7-19 mg by Methodi 1 MG tablet 11:30: mouth st 40 daily. metFORMIN 2018-0 Yes 1000mg Q.5D Take 1,000 [place] XR 7-19 mg by Methodi (GLUCOPHAGE 11:30: mouth 2 st -XR) 500 mg 40 (two) 24 hr times a tablet day. insulin 2018-0 Yes 30U Q.5D Inject 30 [place] 70/30 NPH 7-19 Units Methodi and regular 11:30: under the s t human 40 skin 2 (HumuLIN (two) 70/30) 100 times a unit/mL day. (70-30) injection pravastatin 2018- Yes 40mg QD Take 40 mg [place] (PRAVACHOL) 7-19 by mouth Meth dae 40 MG 11:30: daily. st tablet 40 cetirizine Yes 10mg QD Take 10 mg [place] (ZyrTEC) 10 7-19 by mouth Meth dae MG tablet 11:30: daily. st 40 hydroCHLORO 2018- Yes 25mg QD Take 25 mg [place] thiazide 7-19 by mouth Methodi (HYDRODIURI 11:30: daily. st L) 25 MG 40 tablet DULoxetine Yes 60mg QD Take 60 mg [place] (CYMBALTA) 7-19 by mouth Metho di 60 MG 11:30: daily. st capsule 40 DULoxetine 2018- Yes 30mg QD Take 30 mg [place] (CYMBALTA) 7-19 by mouth Metho di 30 MG 11:30: daily. st capsule 40 valGANciclo valGANciclo 2017-07 Yes Univers vir HCl - vir HCl - 0-12 ity o f 450 MG Oral 450 MG Oral 00:00: [place] Tablet Tablet 00 Physici ans Warfarin Warfarin 2017-07 Yes 1 QD TAKE 1 Uni vers Sodium 4 MG Sodium 4 MG 0-12 TABLET ity of Oral Tablet Oral Tablet 00:00: DAILY. [place] 00 Physici ans hydroCHLORO hydroCHLORO 2017-07 Yes 1 QD TAKE 1 Univers thiazide 25 thiazide 25 0-12 TABLET ity of MG Oral MG Oral 00:00: DAILY. [place] Tablet Tablet 00 Physici ans NovoLOG Mix NovoLOG Mix 2017-07 Yes USE Univers 70/30 70/30 0-12 DIRECTED. ity of (70-30) 100 (70-30) 100 00:00: [place] UNIT/ML UNIT/ML 00 Physici Subcutaneou Subcutaneou a ns s s Suspension Suspension metFORMIN metFORMIN 2017-07 Yes Q0.5D TAKE 1 Univers HCl - 500 HCl - 500 0-12 TABLET ity of MG Oral MG Oral 00:00: TWICE [place] Tablet Tablet 00 DAILY WITH Physi ci MEALS. ans Pravastatin Pravastatin 2017-07 Yes TAKE 1 Univers Sodium 40 Sodium 40 0-12 TABLET AT ity of MG Oral MG Oral 00:00: BEDTIME. David as Tablet Tablet 00 Physici ans DULoxetine DULoxetine 2017-07 Yes 3 QD TAKE 3 Univers HCl - 30 MG HCl - 30 MG 0-12 CAPSULES ity of Oral Oral 00:00: DAILY [place] Capsule Capsule 00 Physici Delayed Delayed ans Release Release Particles Particles ZyrTEC ZyrTEC 2017-07 Yes 1 tab as Unive rs Allergy 10 Allergy 10 0-12 needed for ity of MG Oral MG Oral 00:00: allergies [place] Capsule Capsule 00 Physici ans Albuterol Albuterol 2017-07 Yes Uni vers Sulfate Sulfate 0-12 ity of (2.5 (2.5 00:00: [place] MG/3ML) MG/3ML) 00 Physici 0.083% 0.083% ans Inhalation Inhalation Nebulizatio Nebulizatio n Solution n Solution Alive Once Alive Once 2017-07 Yes U nivers Daily Daily 0-12 ity of Womens Oral Womens Oral 00:00: [place] Tablet Tablet 00 Physici ans Vitamin D Vitamin D Yes NIK Take 1 Univers (Ergocalcif (Ergocalcif 5-29 PEÑA N.P. capsule ity of keny) 24537 keny) 77444 00:00: two times [place] UNIT Oral UNIT Oral 00 per week P hysici Capsule Capsule ans Vital Signs Vital Name Observation Time Observation Value Comments Source Body height 2019-09-14 161.3 cm [place] 15:02:00 Jainism Body weight 2019-09-14 92.987 kg [place] 15:02:00 Jainism BMI 2019-09-14 35.74 kg/m2 [place] 15:02:00 Jainism BP Systolic 2018-10-10 120 mm[Hg] Location: [facility] 10:36:00 Position: [place] Physician s Sitting BP Diastolic 2018-10-10 80 mm[Hg] Location: [facility] 10:36:00 Position: [place] Physician s Sitting Height 2018-10-10 61 [in_us] University of 10:36:00 [place] Physician s Weight 2018-10-10 243 [lb_av] University of 10:36:00 [place] Physician s Body Mass Index 2018-10-10 45.91 kg/m2 University o f Calculated 10:36:00 [place] Physician s Heart Rate 2018-10-10 94 /min University of 10:36:00 [place] Physician s BP Systolic 2018-05-02 119 mm[Hg] University of 10:57:00 [place] Physician s BP Diastolic 2018-05-02 82 mm[Hg] University of 10:57:00 [place] Physician s Height 2018-05-02 61 [in_us] University of 10:57:00 [place] Physician s Weight 2018-05-02 236 [lb_av] University of 10:57:00 [place] Physician s Body Mass Index 2018-05-02 44.59 kg/m2 University o f Calculated 10:57:00 [place] Physician s Heart Rate 2018-05-02 78 /min University of 10:57:00 [place] Physician s BP Systolic 2018-03-25 130 mm[Hg] Location: [facility] 17:27:00 Position: [place] Physician s Sitting BP Diastolic 2018-03-25 87 mm[Hg] Location: [facility] 17:27:00 Position: [place] Physician s Sitting Height 2018-03-25 63 [in_us] University of 17:27:00 [place] Physician s Weight 2018-03-25 241.3125 [lb_av] University of 17:27:00 [place] Physician s Body Mass Index 2018-03-25 42.75 kg/m2 University o f Calculated 17:27:00 [place] Physician s Temperature 2018-03-25 98.1 [degF] Method: Oral University of 17:27:00 [place] Physician s Heart Rate 2018-03-25 98 /min University of 17:27:00 [place] Physician s BP Systolic 2018-03-18 135 mm[Hg] University of 11:44:00 [place] Physician s BP Diastolic 2018-03-18 84 mm[Hg] University of 11:44:00 [place] Physician s Height 2018-03-18 61 [in_us] University of 11:44:00 [place] Physician s Weight 2018-03-18 244 [lb_av] University of 11:44:00 [place] Physician s Body Mass Index 2018-03-18 46.1 kg/m2 University o f Calculated 11:44:00 [place] Physician s Temperature 2018-03-18 96.8 [degF] [facility] 11:44:00 [place] Physician s Heart Rate 2018-03-18 98 /min [facility] 11:44:00 [place] Physician s BP Systolic 2018-01-24 150 mm[Hg] [facility] 13:37:00 [place] Physician s BP Diastolic 2018-01-24 98 mm[Hg] [facility] 13:37:00 [place] Physician s Height 2018-01-24 63 [in_us] [facility] 13:37:00 [place] Physician s Weight 2018-01-24 248.3 [lb_av] [facility] 13:37:00 [place] Physician s Body Mass Index 2018-01-24 43.98 kg/m2 [place] Calculated 13:37:00 [place] Physician s Temperature 2018-01-24 98.1 [degF] [facility] 13:37:00 [place] Physician s Heart Rate 2018-01-24 81 /min [facility] 13:37:00 [place] Physician s Procedures Procedure Date / Time Performing Clinician Source Performed XR KNEE 3 VW RIGHT 2019-09-14 15:10:12 SitGood [place] n Jainism XR KNEE AP STANDING 2019-09-14 15:09:38 [place] Jainism BILATERAL [LH] CBC (without 2018-10-06 00:00:00 [facility] differential) Physicians [QL] COMPREHENSIVE 2018-10-06 00:00:00 [facility] METABOLIC PANEL W/O eGFR Physici ans [QLH] FOLATE, SERUM 2018-10-06 00:00:00 [facility] Physicians [QLH] HEMOGLOBIN A1c 2018-10-06 00:00:00 [facility] Physicians [QLH] IRON AND TOTAL 2018-10-06 00:00:00 [facility] IRON BINDING CAPACITY Physicians [QLH] LIPID PANEL 2018-10-06 00:00:00 [facility] Physicians [QLH] PTH, INTACT 2018-10-06 00:00:00 [facility] (WITHOUT CALCIUM) Physicians [QLH] TSH, 3RD 2018-10-06 00:00:00 [facility] GENERATION Physicians [QLH] VITAMIN A 2018-10-06 00:00:00 [place] [facility] (RETINOL) Physicians [QLH] VITAMIN B1, WHOLE 2018-10-06 00:00:00 [facility] BLOOD Physicians [QLH] VITAMIN B12 2018-10-06 00:00:00 [facility] Physicians [QLH] VITAMIN D, 2018-10-06 00:00:00 [facility] 25-HYDROXY, LC/MS/MS Physicians [QLH] VITAMIN E 2018-10-06 00:00:00 [facility] (TOCOPHEROL) Physicians [LH] CBC (without 2018-07-07 00:00:00 [facility] differential) Physicians [QL] COMPREHENSIVE 2018-07-07 00:00:00 [facility] METABOLIC PANEL W/O eGFR Physici ans [QLH] FOLATE, SERUM 2018-07-07 00:00:00 [facility] Physicians [QLH] HEMOGLOBIN A1c 2018-07-07 00:00:00 [facility] Physicians [QL] LIPID PANEL 2018-07-07 00:00:00 [facility] Physicians [QLH] PTH, INTACT 2018-07-07 00:00:00 [facility] (WITHOUT CALCIUM) Physicians [QLH] TSH, 3RD 2018-07-07 00:00:00 [facility] GENERATION Physicians [QLH] VITAMIN A 2018-07-07 00:00:00 [facility] (RETINOL) Physicians [QLH] VITAMIN B1, WHOLE 2018-07-07 00:00:00 [facility] BLOOD Physicians [QLH] VITAMIN B12 2018-07-07 00:00:00 [facility] Physicians [QLH] VITAMIN D, 2018-07-07 00:00:00 [facility] 25-HYDROXY, LC/MS/MS Physicians [QLH] VITAMIN E 2018-07-07 00:00:00 [facility] (TOCOPHEROL) Physicians [QLH] IRON AND TOTAL 2018-07-07 00:00:00 [facility] IRON BINDING CAPACITY Physicians [L] Vitamin D, 2018-03-18 00:00:00 [facility] 25-Hydroxy, Total - Physicians Esoterix [LH] CBC (without 2018-03-18 00:00:00 [facility] differential) Physicians [QLH] FOLATE, SERUM 2018-03-18 00:00:00 [facility] Physicians [QLH] IRON, TOTAL 2018-03-18 00:00:00 [facility] Physicians [QLH] PTH, INTACT 2018-03-18 00:00:00 [facility] (WITHOUT CALCIUM) Physicians [QLH] TSH, 3RD 2018-03-18 00:00:00 [place] [facility] GENERATION Physicians [QLH] VITAMIN A 2018-03-18 00:00:00 [facility] (RETINOL) Physicians [QLH] VITAMIN B1, WHOLE 2018-03-18 00:00:00 [facility] BLOOD Physicians [QLH] VITAMIN B12 2018-03-18 00:00:00 [facility] Physicians [QLH] VITAMIN E 2018-03-18 00:00:00 [place] [facility] (TOCOPHEROL) Physicians GI Stomach UGI w/KUB air 2018-03-18 00:00:00 Uni [facility] cont and Esophagus Ba Physicians swallow [id number] [L] Vitamin D, 2017-12-16 00:00:00 [facility] 25-Hydroxy, Total - Physicians Esoterix [LH] CBC (without 2017-12-16 00:00:00 [facility] differential) Physicians [QL] COMPREHENSIVE 2017-12-16 00:00:00 [facility] METABOLIC PANEL W/O eGFR Physici ans [QLH] FOLATE, SERUM 2017-12-16 00:00:00 [facility] Physicians [QLH] HEMOGLOBIN A1c 2017-12-16 00:00:00 [facility]] IRON, TOTAL 2017-12-16 00:00:00 [facility] Physicians [QLH] LIPID PANEL 2017-12-16 00:00:00 [facility] Physicians [QLH] PTH, INTACT 2017-12-16 00:00:00 [facility] (WITHOUT CALCIUM) Physicians [QLH] TSH, 3RD 2017-12-16 00:00:00 [facility] GENERATION Physicians [QLH] VITAMIN A 2017-12-16 00:00:00 [facility] (RETINOL) Physicians [QLH] VITAMIN B1, WHOLE 2017-12-16 00:00:00 [facility] BLOOD Physicians [QLH] VITAMIN B12 2017-12-16 00:00:00 [facility] Physicians [QLH] VITAMIN E 2017-12-16 00:00:00 [facility] (TOCOPHEROL) Physicians History of Pacemaker [facility] Placement Physicians Plan of Care Planned Activity Planned Date Details Comments Source Future Scheduled 2020-02-27 INFLUENZA VACCINE [place] [facility] Test 00:00:00 [code = INFLUENZA VACCINE] Future Scheduled 2017 BREAST CANCER [facility] 00:00:00 SCREENING [code = BREAST CANCER SCREENING] Future Scheduled 2017 COLONOSCOPY SCREENING [place] [facility]ism Test 00:00:00 [code = COLONOSCOPY SCREENING] Future Scheduled 2017 SHINGLES VACCINES [place] [facility] Test 00:00:00 (#1) [code = SHINGLES VACCINES (#1)] Future Scheduled 1988-02-09 Screening for [facility]odist Test 00:00:00 malignant neoplasm of cervix (procedure) [code = 918192878] Future Scheduled 1983 COVID-19 VACCINE (1 [place] [facility] Test 00:00:00 of 2) [code = COVID-19 VACCINE (1 of 2)] Encounters Start End Encounter Admission Attending Care Care Encounter Source Date/Time Date/Time Type Type Clinicians Facility Department ID 2019-10-09 2019-10-09 Appointmen BUD GARCIA [facility] [id number] Univers 11:00:00 11:00:00 t; QUE Esparza [facility] [place] BRENNAN, QUE, Physi ci M.D. ans 2018-10-23 2018-10-23 Appointmen JOSE SCHAEFER [id number] Univers 11:00:00 11:00:00 t; JUSTIN SCHAEFER, it y of [facility] INSULATION BOARD BACK TENDER Physici ans 2018-10-13 2018-10-13 Appointmen JOSE SCHAEFER [id number] Univers 08:00:00 08:00:00 t; JUSTIN SCHAEFER, it y of [facility] INSULATION BOARD BACK TENDER Physici ans 2018-10-10 2018-10-10 Appointmen BUD [facility] Neurology [phone] [id number] Univers 10:30:00 10:30:00 t; QUE Esparza ity [facility] [place], QUE, Physi ci M.D. ans 2018-10-06 2018-10-06 AppointJOSE Vazquez [id number] Univers 12:30:00 12:30:00 t; NIK PEÑA NP Multi i ty of RAINER ZARAGOZA Specialty [place] as Physici ans 2018-10-03 2018-10-03 Appointmen NOVADARIARUTHDarius [facility] [id number] Univers 10:30:00 10:30:00 t; QUE Esparza ity of [facility] [place], QUE, Physi ci M.D. ans 2018-07-07 2018-07-07 Appointmen JOSE PEÑA [id number] Univers 12:30:00 12:30:00 t; INK PEÑA NP Surgery i ty of RAINER ZARAGOZA Specialty [facility] as Physici ans 2018-07-04 2018-07-04 Appointmen JOSE PEÑA [facility] [id number] Univers 12:45:00 12:45:00 t; NIK PEÑA NP i ty of RAINER ZARAGOZA [place] Physici ans 2018-07-04 2018-07-04 [facility]UD [facility] [id number] Univers 11:00:00 11:00:00 t; QUE Esparza ity of [facility] [place], QUE, Physi ci M.DTobin ans 2018-06-17 2018-06-17 [facility] SHOSHANA [facility] [id number] Univers 10:15:00 10:15:00 t; JULIUS oD, caryly of ROJAS CABA [place], JULIUS, Physi ci RD ans 2018-05-26 2018-05-26 Appointmen JOSE MICHAELS [facility] [id number] Univers 10:00:00 10:00:00 t; GEORGINA MICHAELS M.D. ity of Lewis ERICKSON [place] Physici ans 2018-05-15 2018-05-15 AppointJOSE Vazquezaire [id number] Univers 09:45:00 09:45:00 t; NIK PEÑA Multi ity of JUAN F ZARAGOZA Specialty [place] INSULATION BOARD BACK TENDER Physici ans 2018-05-02 2018-05-02 AppointJOSE Vazquez [facility] [id number] Univers 13:30:00 13:30:00 t; NIK PEÑA NP i ty of RAINER ZARAGOZA [place] Physici ans 2018-05-02 2018-05-02 [facility] BUD [facility] [id number] Univers 10:30:00 10:30:00 t; QUE Esparza ity of TALLAVAJHU M.D. [place], QUE, Physi ci MTobinD. ans 2018-04-14 2018-04-14 Appointmen JOSE MICHAELS General [id number] Univers 09:00:00 09:00:00 t; GEORGINA MICHAELS M.D. Surgery ity of [place] ERICKSON [place] Physici ans 2018-04-02 2018-04-02 Appointmen JOSE MICHAELS UTP [id number] Univers 10:00:00 10:00:00 t; GEORGINA MICHAELS M.D. ity of [place] ERICKSON [place] Physici ans 2018-03-25 2018-03-25 Appointmen TRACE-ESTRELLITA GARCIA UTP [id number] Univers 15:00:00 15:00:00 t; JULIUS Do, ity of ROJAS [facility], Physi ci RD ans 2018-03-25 2018-03-25 AppointJOSE Vazquez [place] [id number] Univers 13:45:00 13:45:00 t; NIK PEÑA, Surgery ity of JUAN F ZARAGOZA [facility] Physici ans 2018-03-20 2018-03-20 Appointmen TRACE-ESTRELLITA GARCIA UTP [id number] Univers 15:00:00 15:00:00 t; JULIUS Do, itthea of ROJAS [facility], Physi ci RD ans 2018-03-18 2018-03-18 Appointmen JOSE EVANS Minimally [id number] Univers 13:30:00 13:30:00 t; NOLBERTO EVANS, Invasive ity of Lewis ARVIZU [facility] Jamie mosqueda M.D. [place] Physici ([facility]) ans 2018-02-20 2018-02-20 Appointmen KRUNALIN-ESTRELLITA UTP UTP [id number] Univers 12:45:00 12:45:00 t; JULIUS Do ity of ROJAS [facility], Physi ci RD ans 2018-01-24 2018-01-24 Appointmen JOSE PEÑA MIST [id number] Univers 13:30:00 13:30:00 t; NIK PEÑA NP General & ity of RAINER ZARAGOZA Bariatric [place] as Surgery Physici ans 2018-01-09 2018-01-09 Appointmen SHOSHANA [facility] UTP [id number] Univers 13:00:00 13:00:00 t; JULIUS Do, ity of TRACE-ELIZABETH [facility] [place], JULIUS, Physi ci RD ans 2017-12-16 2017-12-16 Appointmen JOSE MICHAELS Kismet [id number] Univers 08:30:00 08:30:00 t; GEORGINA MICHAELS M.D. Surgery ity denny ERICKSON M.D. Specialty [place] as Physici ans 2017-02-15 2017-02-15 Appointmen JOSE, [facility] UTP [id number] Univers 08:45:00 08:45:00 t; EDI GARCIA, ity of EDI, DPM [facility] Physici ans 2017-01-18 2017-01-18 Appointmen JOSE, JOSE UTP [id number] Univers 08:45:00 08:45:00 t; EDI GARCIA, ity of EDI, DPM [facility] Physici ans 2017-01-09 2017-01-09 Appointmen JOSE, [facility] UTP [id number] Univers 11:30:00 11:30:00 t; EDI GARCIA, ity of EDI, DPM [facility] Physici ans 2016-12-21 2016-12-21 Appointmen JOSE, JOSE UTP [id number] Univers 11:15:00 11:15:00 t; EDI GARCIA, ity of EDI, DPM [facility] Physici ans 2016-06-25 2016-06-25 Appointmen JOSE, JOSE UTP [id number] Univers 10:15:00 10:15:00 t; EDI GARCIA ity o f EDI [place] Physici ans Results Test Description Test Time Test Comments Results Result Comments Source [[facility]] CMP W/EGFR 2018-07-07 13:27:01 Test Item Value Reference Range Interpretation Comme nts Sodium Level (test code 144 {mEq/l} 135-145 = 2951-2) Potassium Level (test 4.1 {mEq/l} 3.5-5.1 code = 2823-3) Chloride Level (test 107 {mEq/l} 95-109 code = 2075-0) Carbon Dioxide (test 32 {mEq/l} 24-32 code = 2027-9) AGAP; Below Low 9.1 {mEq/l} 10.0-20.0 Threshold (test code = 12085-8) Glucose Lvl (test code = 82 mg/dl 70-99 Boo lt reference range values 2345-7) reflect the cli nical guidelinesof th e Citizen [place] Diabetes Associ ation. Creatinine Lvl (test 0.70 mg/dl 0.50-1.40 code = 2160-0) Blood Urea Nitrogen 15 mg/dl 7-22 (test code = 3094-0) BUN/Creatinine Ratio 21 6-25 (test code = 3097-3) Total Protein (test code 7.1 g/dl 6.4-8.4 = 2885-2) Albumin Lvl (test code = 4.0 g/dl 3.5-5.0 1751-7) Globulin (test code = 3.1 g/dl 2.7-4.2 70827-5) A/G Ratio (test code = 1.3 0.7-1.6 1759-0) Calcium Level Total 9.5 mg/dl 8.5-10.5 (test code = 75057-1) ALT (test code = 1743-4) 19 u/l 0-65 AST (test code = 16 u/l 0-37 73200-2) Alk Phos (test code = 85 u/l 39-136 1782-0) Bili Total (test code = 0.6 mg/dl 0.2-1.3 1974-) eGFR (test code = 101 {ML/MIN/1.7} The eG FR is calculated using the 24993-4) CKD-EPI formula . In most young, healthyindividu als the eGFR will be >90 mL/min/1 .73m2. The eGFR declines with a ge. AneGFR of 60-89 may be no rmal in some populations, pa rticularly the elderly, forwho m the CKD-EPI formula has not been extensively validated. Use of the eGFR isnot recommended in the following populations:Ind ividuals with unstable creati nine concentrations, including patient s and those with serious co-morb id conditions.Ronna ents with extremes in mus benny mass or diet.The data a alex are obtained from the [facility] al Kidney Disease Education Progr am(NKDEP) which additionally re commends that when the eGFR i s used in patientswith ex tremes of body mass index for purposes of drug dosing, the eGF R shouldbe multiplied by t he estimated BMI. [facility]] FOLATE, [id number] 13:27:01 Test Item Value Reference Range Interpretation Comments Folate Level (test code = 2284-8) 12.1 ng/ml >=3.0 [facility]] IRON AND TOTAL IRON BINDING CAPACITY 2018-07-07 13:27:01 Test Item Value Reference Range Interpretation Comments Iron (test code = 2498-4) 58 ug/dL 30-160 % Satur Fe (test code = 2502-3) 19 % 12-57 TIBC (test code = 2500-7) 308 ug/dL 228-428 UIBC (test code = UIBC) 250 ug/dL 110-370 [facility]] LIPID [id number] 13:27:01 Test Item Value Reference Range Interpretation Comments Chol (test code = 2093-3) 163 mg/dl <=199 Trig (test code = 2571-8) 115 mg/dl <=149 HDL Cholesterol; Below Low 49 mg/dl >=61 Threshold (test code = 2085-9) CHD Risk; Below Low Threshold (test 3.33 3.90-5.80 code = 80433-8) LDL (test code = 46922-9) 91 mg/dl <=99 VLDL (test code = VLDL) 23 [facility]] TSH, 3RD [id number] 13:27:01 Test Item Value Reference Range Interpretation Comments TSH (test code = 23168-3) 1.960 {uIU/ml} 0.360-3.740 [facility]] VITAMIN [id number] 13:27:01 Test Item Value Reference Range Interpretation Comments Vitamin B12 Level (test code = 367 pg/ml 254-1320 2-9) [facility][] CBC (without differential)2018-07-07 13:27:01 Test Item Value Reference Range Interpretation Comments WBC (test code = 6690-2) 7.6 {K/CMM} 3.7-10.4 RBC (test code = 789-8) 4.93 {M/CMM} 4.20-5.40 Hgb (test code = 718-7) 14.4 g/dl 12.0-16.0 Hct (test code = 89057-9) 42.6 % 36.0-48.0 MCV (test code = 787-2) 86.4 fL 80.0-98.0 MCH (test code = 785-6) 29.2 pg 27.0-31.0 MCHC (test code = 786-4) 33.8 g/dl 32.0-36.0 RDW; Above High Threshold (test 14.8 % 11.5-14.5 code = 788-0) Platelet (test code = 78485-3) 268 {K/CMM} 133-450 Mean Platelet Volume (test code 9.7 fL 7.4-10.4 = 73460-5) [facility]] PTH, INTACT (WITHOUT CALCIUM)2018-07-07 13:27:01 Test Item Value Reference Range Interpretation Comments Parathyroid Hormone Intact (test 59.2 pg/ml 18.4-80.1 code = 2731-8) [facility]] VITAMIN D, 25-HYDROXY, [id number] 13:27:01 Test Item Value Reference Range Interpretation Comments Vitamin D, 25-OH, 22.4 ng/ml 30.0-100.0 Reference range is based Total (test code on recommen dations in the = Vitamin D, EndocrineSociet y Clinical 25-OH, Total) Practice Guide line (J Clin Endocrinol Lybsm8389;96:19 11-1930) [facility]] HEMOGLOBIN [id number] 13:27:01 Test Item Value Reference Range Interpretation Comments Hemoglobin A1c (test code = 4548-4) 5.4 % <=5.6 [facility]] VITAMIN B1, WHOLE [id number] 13:27:01 Test Item Value Reference Range Interpretation Comments Vitamin B1 134.8 66.5-200.0 This test was d eveloped and its Level (test nmol/L performance code = characteristics determined by Vitamin B1 [facility]. It has not been Level) cleared orappro dontae by the Food and Drug Administration. Performed At: [address] [id number] ra Yin MONTANO Ph:[phone] [facility][H] Vit [id number] 13:27:01 Test Item Value Reference Range Interpretation Comments Vitamin A 32.9 ug/dL 20.1-62.0 Please note r eferenceinterval Level (test changeReferen ce intervals for code = vitamin A deter mined from Vitamin A LabCorpinternal studies. Level) Individuals wit h vitamin A less than 20ug/dL ar e considered vitamin A defic ient and those withserum rocio ntrations less than 10 ug/dL a re consideredsever sherine deficient.This test was developed and i ts performance characteristics determined by [facility]. It has not been cleared orappro dontae by the Food and Drug Administration. Performed At: [address] [id number] ra Yin MONTANO Ph:[phone] [facility][H] Vitamin E [id number] 13:27:01 Test Item Value Reference Range Interpretation Comments Alpha-Tocoph 13.9 mg/L 7.0-25.1 keny (test code = Alpha-Tocoph keny) Gamma-Tocoph 1.3 mg/L 0.5-5.5 Reference inter vals for alpha keny (test and gamma-tocop heroldetermined code = from National H ealth and Gamma-Tocoph Nutrition Exami nationSurvey, keny) 9780-4465. Dorothy viduals with alpha-tocophero l levelsless than 5.0 mg/L are co nsidered vitamin E deficient.Thi s test was developed and i ts performance characteristics determined by [employer]. It has not been cleared orapproved by [facility] Food and Drug Administration. Performed At: [address] [id number] Esqueda MD Ph:[phone] [facility]] HEMOGLOBIN [id number] 10:06:01 Test Item Value Reference Range Interpretation Comments Hemoglobin A1c; Above High Threshold 6.9 % <=5.6 (test code = 4548-4) [facility]] CBC (INCLUDES DIFF/PLT)2018-05-15 10:06:01 Test Item Value Reference Range Interpretation Comments WBC (test code = 6690-2) 8.3 {K/CMM} 3.7-10.4 RBC (test code = 789-8) 4.35 {M/CMM} 4.20-5.40 Hgb (test code = 718-7) 13.2 g/dl 12.0-16.0 Hct (test code = 13673-1) 39.3 % 36.0-48.0 MCV (test code = 787-2) 90.5 fL 80.0-98.0 MCH (test code = 785-6) 30.4 pg 27.0-31.0 MCHC (test code = 786-4) 33.6 g/dl 32.0-36.0 RDW (test code = 788-0) 14.1 % 11.5-14.5 Platelet (test code = 39599-0) 293 {K/CMM} 133-450 Mean Platelet Volume (test code 8.7 fL 7.4-10.4 = 18360-5) [facility]] [id number] 10:06:01 Test Item Value Reference Range Interpretation Comments Segmented Neutrophils (test code 60.2 % 45.0-75.0 = 86549-8) Monocytes (test code = 60081-6) 6.1 % 2.0-12.0 Lymphocytes (test code = 76367-0) 31.7 % 20.0-40.0 Eosinophils (test code = 56880-3) 1.5 % 0.0-4.0 Basophils (test code = 706-2) 0.5 % 0.0-1.0 Segs-Bands # (test code = 5.0 {K/CMM} 1.5-8.1 08870-6) Lymphocytes # (test code = 2.6 {K/CMM} 1.0-5.5 29906-3) Monocytes # (test code = 99930-5) 0.5 {K/CMM} 0.0-0.8 Eosinophils # (test code = 0.1 {K/CMM} 0.0-0.5 89663-5) [facility]] PTH, INTACT (WITHOUT CALCIUM)2018-05-15 10:06:01 Test Item Value Reference Range Interpretation Comments Parathyroid Hormone Intact (test 63.0 pg/ml 18.4-80.1 code = 2731-8) [facility]] CMP [id number] 10:06:01 Test Item Value Reference Range Interpretation Comments Sodium Level 139 {mEq/l} 135-145 (test code = 2951-2) Potassium Level 4.3 {mEq/l} 3.5-5.1 (test code = 2823-3) Chloride Level 99 {mEq/l} 95-109 (test code = 5-0) Carbon Dioxide 29 {mEq/l} 24-32 (test code = 2027-9) AGAP (test code = 15.3 {mEq/l} 10.0-20.0 65401-7) Glucose Lvl; 164 mg/dl 70-99 Adult reference range Above High values reflect the Threshold (test clinical rosalinda delinesof the code = 2345-7) [place] Diab etes Association. Creatinine Lvl 1.00 mg/dl 0.50-1.40 (test code = 2160-0) Blood Urea 21 mg/dl 7-22 Nitrogen (test code = 3094-0) BUN/Creatinine 21 6-25 Ratio (test code = 3097-3) Total Protein 7.6 g/dl 6.4-8.4 (test code = 2885-2) Albumin Lvl (test 3.9 g/dl 3.5-5.0 code = 1751-7) Globulin (test 3.7 g/dl 2.7-4.2 code = 99709-4) A/G Ratio (test 1.1 0.7-1.6 code = 1759-0) Calcium Level 9.3 mg/dl 8.5-10.5 Total (test code = 83089-0) ALT (test code = 64 u/l 0-65 3-4) AST (test code = 34 u/l 0-37 12776-1) Bili Total (test 0.5 mg/dl 0.2-1.3 code = 1974-2) Alk Phos (test 92 u/l 39-136 code = 1783-0) eGFR (test code = 65 The eGFR i s calculated 08386-7) {ML/MIN/1.7} using the CKD-E PI formula. In mos t young, healthyindividu als the eGFR will be >9 0 mL/min/1.73m2. The eGFR declines with a ge. AneGFR of 60-89 may be normal in some population s, particularly th e elderly, forwhom the CKD -EPI formula has not been extensively catalino idated. Use of the eGFR isnot recommended in the following populations:Ind ividuals with unstable c reatinine concentrations, including patient s and those with seri ous co-morbid conditions.Ronna ents with extremes in mus benny mass or diet.The carmen a above are obtained fr om the National Kidney Disease Education Progr am(NKDEP) which sam irby recommends that when the eGFR is used in patientswith ex tremes of body mass index for purposes of deya g dosing, the eGFR should be multiplied by t he estimated BMI. [facility]] IRON, [id number] 10:06:01 Test Item Value Reference Range Interpretation Comments Iron (test code = 2498-4) 60 ug/dL 30-160 [facility]] LIPID [id number] 10:06:01 Test Item Value Reference Range Interpretation Comments Chol; Above High Threshold (test 204 mg/dl <=199 code = 2093-3) Trig; Above High Threshold (test 161 mg/dl <=149 code = 2571-8) HDL Cholesterol; Below Low 44 mg/dl >=61 Threshold (test code = 2085-9) CHD Risk (test code = 03639-4) 4.64 3.90-5.80 LDL; Above High Threshold (test 128 mg/dl <=99 code = 96425-4) VLDL (test code = VLDL) 32 [facility]] TSH, 3RD [id number] 10:06:01 Test Item Value Reference Range Interpretation Comments TSH; Above High Threshold 4.050 {uIU/ml} 0.360-3.740 (test code = 54490-0) [facility]] VITAMIN [id number] 10:06:01 Test Item Value Reference Range Interpretation Comments Vitamin B12 Level (test code = 1195 pg/ml 254-1320 2132-9) [facility]] FOLATE, [id number] 10:06:01 Test Item Value Reference Range Interpretation Comments Folate Level (test code = 2284-8) 32.7 ng/ml >=3.0 [facility]] VITAMIN D, 25-HYDROXY, [id number] 10:06:01 Test Item Value Reference Range Interpretation Comments Vitamin D, 25-OH, 62.6 ng/ml 30.0-100.0 Reference range is based Total (test code on recommen dations in the = Vitamin D, EndocrineSociet y Clinical 25-OH, Total) Practice Guide line (J Clin Endocrinol Cofww5269;96:19 11-1930) [facility][H] Vit [id number] 10:06:01 Test Item Value Reference Range Interpretation Comments Vitamin A 68.0 ug/dL 33.1-100.0 Reference inter vals for vitamin Level (test A determined fr om code = NationalHealth and Nutrition Vitamin A Examination Marlin vey, Level) .Indiv iduals with vitamin A less than 20 ug/dL areconsidered v itamin A deficient and t hose with serumconcentrat ions less than 10 ug/dL are co nsidered severelydeficie nt.This test was developed and i ts performance characteristics determined by [facility]. It has not been cleared orappro dontae by the Food and Drug Administration. Performed At: [facility] [id number] [place], [place] [id number] miguelito [place] MD Ph:[phone] [facility][H] Vitamin E [id number] 10:06:01 Test Item Value Reference Range Interpretation Comments Alpha-Tocoph 14.2 mg/L 7.0-25.1 keny (test code = Alpha-Tocoph keny) Gamma-Tocoph 0.8 mg/L 0.5-5.5 Reference inter vals for alpha keny (test and gamma-tocop heroldetermined code = from National H ealth and Gamma-Tocoph Nutrition Exami nationSurvey, keny) . Dorothy viduals with alpha-tocophero l levelsless than 5.0 mg/L are co nsidered vitamin E deficient.Thi s test was developed and i ts performance characteristics determined by [facility]. It has not been cleared orapproved by [facility] Food and Drug Administration. Performed At: [facility] [id number] miguelito [place] MD Ph:[phone] [facility]] VITAMIN B1, WHOLE [id number] 10:06:01 Test Item Value Reference Range Interpretation Comments Vitamin B1 190.3 66.5-200.0 This test was d eveloped and its Level (test nmol/L performance code = characteristics determined by Vitamin B1 [facility]. It has not been Level) cleared orappro dontae by the Food and Drug Administration. Performed At: [facility] [id number] miguelito [place] MD Ph:[phone] [facility]] Vitamin D 25-Hydroxy [id number] 10:06:01 Test Item Value Reference Range Interpretation Comments Vitamin D, 25-OH, 53 ng/ml Reference Range:All Total (test code = Ages: Tar get levels 30 Vitamin D, 25-OH, - 100 Total) Vitamin D2 25-OH (test <1.0 code = Vitamin D2 25-OH) Vitamin D3 25-OH (test 53 ng/ml Perfo rmed At: ES code = Vitamin D3 [facility] [address] Lost 25-OH) [place], [place] [id number] valeriy Gonzalez MD Ph:[phone] [facility] St[facility] UGI w/air cont and Esophagus Ba swallow [id number] 10:17:00Patient Name: RAJEEV REYNAOB: 1965; Age: 53 years y/o FemaleMR: [id number]: UGI w air contrast and Ba swallow DX 03/28/2018 10:17 AM CDTOrdering Physician: MD Nolberto Evans, MDClinical Indication: - K21.9 Gastro-esophageal reflux disease withoutesophagitis; Comparison: NoneEsophagram and upper GI series, with barium and air contrast.Esophagus is normal. No mass or mucosal abnormality appreciated. No hiatalhernia seen. There is no reflux elicited with the patient in the supine position during the exam.The stomach seen and air contrast is normal. The stomach empties readily intonormal duodenal bulb. The duodenal C-loop appears normal. The proximal smallbowel caliber and fold pattern is normal.IMPRESSION: Unremarkable.Total fluoroscopy time 4.9 minutes.SL: [id number]--Fgxb by:Lawrence Palacios MDDictated Date/time: 03/28/18 13:47Electronically Signed by: Lawrence Palacios MD 03/28/1813:49FINAL REPORTGunnison Valley Hospital Physicians[[facility]] CMP [id number] 11:00:01 Test Item Value Reference Range Interpretation Comments Sodium Level 142 {mEq/l} 135-145 (test code = 2951-2) Potassium Level 4.3 {mEq/l} 3.5-5.1 (test code = 2823-3) Chloride Level 106 {mEq/l} 95-109 (test code = 2075-0) Carbon Dioxide 29 {mEq/l} 24-32 (test code = 8-9) AGAP (test code = 11.3 {mEq/l} 10.0-20.0 31926-4) Glucose Lvl (test 82 mg/dl 70-99 Adult refe rence range code = 2345-7) values reflec t the clinical guidel inesof the [place] Diabet es Association. Creatinine Lvl 0.70 mg/dl 0.50-1.40 (test code = 2160-0) Blood Urea 14 mg/dl 7-22 Nitrogen (test code = 3094-0) BUN/Creatinine 20 6-25 Ratio (test code = 3097-3) Total Protein 7.1 g/dl 6.4-8.4 (test code = 2885-2) Albumin Lvl (test 4.0 g/dl 3.5-5.0 code = 1751-7) Globulin (test 3.1 g/dl 2.7-4.2 code = 87380-3) A/G Ratio (test 1.3 0.7-1.6 code = 1759-0) Calcium Level 9.1 mg/dl 8.5-10.5 Total (test code = 69217-0) ALT (test code = 22 u/l 0-65 1743-4) AST (test code = 18 u/l 0-37 41863-4) Bili Total (test 0.6 mg/dl 0.2-1.3 code = 1975-2) Alk Phos (test 82 u/l 39-136 code = 1783-0) eGFR (test code = 101 The eGFR i s calculated 35089-9) {ML/MIN/1.7} using the CKD-E PI formula. In mos t young, healthyindividu als the eGFR will be >9 0 mL/min/1.73m2. The eGFR declines with a ge. AneGFR of 60-89 may be normal in some population s, particularly th e elderly, forwhom the CKD -EPI formula has not been extensively catalino idated. Use of the eGFR isnot recommended in the following populations:Ind ividuals with unstable c reatinine concentrations, including patient s and those with seri ous co-morbid conditions.Ronna ents with extremes in mus benny mass or diet.The carmen a above are obtained fr om the National Kidney Disease Education Progr am(NKDEP) which sam irby recommends that when the eGFR is used in patientswith ex tremes of body mass index for purposes of deya g dosing, the eGFR should be multiplied by t he estimated BMI. [facility]] FOLATE, [id number] 11:00:01 Test Item Value Reference Range Interpretation Comments Folate Level (test code = 2284-8) 9.8 ng/ml >=3.0 [facility]] IRON, [id number] 11:00:01 Test Item Value Reference Range Interpretation Comments Iron (test code = 2498-4) 83 ug/dL 30-160 [facility]] LIPID [id number] 11:00:01 Test Item Value Reference Range Interpretation Comments Chol (test code = 2093-3) 193 mg/dl <=199 Trig; Above High Threshold (test 219 mg/dl <=149 code = 2571-8) HDL Cholesterol; Below Low 50 mg/dl >=61 Threshold (test code = 2085-9) CHD Risk; Below Low Threshold (test 3.86 3.90-5.80 code = 66339-7) LDL (test code = 28976-3) 99 mg/dl <=99 VLDL (test code = VLDL) 44 [facility]] TSH, 3RD [id number] 11:00:01 Test Item Value Reference Range Interpretation Comments TSH (test code = 69908-4) 1.610 {uIU/ml} 0.360-3.740 [facility]] VITAMIN [id number] 11:00:01 Test Item Value Reference Range Interpretation Comments Vitamin B12 Level; Below Low 203 pg/ml 254-1320 Threshold (test code = 2132-9) [facility][] CBC (without differential)2017-12-16 11:00:01 Test Item Value Reference Range Interpretation Comments WBC (test code = 6690-2) 7.6 {K/CMM} 3.7-10.4 RBC (test code = 789-8) 5.08 {M/CMM} 4.20-5.40 Hgb (test code = 718-7) 14.9 g/dl 12.0-16.0 Hct (test code = 94665-2) 44.1 % 36.0-48.0 MCV (test code = 787-2) 86.8 fL 80.0-98.0 MCH (test code = 785-6) 29.3 pg 27.0-31.0 MCHC (test code = 786-4) 33.8 g/dl 32.0-36.0 RDW (test code = 788-0) 14.5 % 11.5-14.5 Platelet (test code = 80977-4) 249 {K/CMM} 133-450 Mean Platelet Volume (test code 9.5 fL 7.4-10.4 = 16220-6) [facility]] PTH, INTACT (WITHOUT CALCIUM)2017-12-16 11:00:01 Test Item Value Reference Range Interpretation Comments Parathyroid Hormone Intact (test 59.7 pg/ml 18.4-80.1 code = 2731-8) [facility]] HEMOGLOBIN [id number] 11:00:01 Test Item Value Reference Range Interpretation Comments Hemoglobin A1c (test code = 4548-4) 5.2 % <=5.6 [facility]] VITAMIN D, 25-HYDROXY, [id number] 11:00:01 Test Item Value Reference Range Interpretation Comments Vitamin D, 25-OH, 17.8 ng/ml 30.0-100.0 Reference range is based Total (test code on recommen dations in the = Vitamin D, EndocrineSociet y Clinical 25-OH, Total) Practice Guide line (J Clin Endocrinol Zidut4539;96:19 11-1930) [facility][H] Vit [id number] 11:00:01 Test Item Value Reference Range Interpretation Comments Vitamin A 41.0 ug/dL 33.1-100.0 Reference inter vals for vitamin Level (test A determined fr om code = [facility] and Nutrition Vitamin A Examination Marlin vey, Level) .Indiv iduals with vitamin A less than 20 ug/dL areconsidered v itamin A deficient and t hose with serumconcentrat ions less than 10 ug/dL are co nsidered severelydeficie nt.This test was developed and i ts performance characteristics determined by [employer]. It has not been cleared orappro dontae by the Food and Drug Administration. Performed At: [facility] [id number] [place], [place] [id number] miguelito [place] MD Ph:[phone] [facility][H] Vitamin E [id number] 11:00:01 Test Item Value Reference Range Interpretation Comments Alpha-Tocoph 12.6 mg/L 7.0-25.1 keny (test code = Alpha-Tocoph keny) Gamma-Tocoph 2.9 mg/L 0.5-5.5 Reference inter vals for alpha keny (test and gamma-tocop heroldetermined code = from [facility] ealth and Gamma-Tocoph Nutrition Exami nationSurvey, keny) . Dorothy viduals with alpha-tocophero l levelsless than 0.5 mg/L are co nsidered vitamin E deficient.Thi s test was developed and i ts performance characteristics determined by [employer]. It has not been cleared orapproved by [facility] Food and Drug Administration. Performed At: [facility] [id number] [place], [place] [id number] [place] MD Ph:[phone] [facility]] VITAMIN B1, WHOLE [id number] 11:00:01 Test Item Value Reference Range Interpretation Comments Vitamin B1 164.4 66.5-200.0 This test was d eveloped and its Level (test nmol/L performance code = characteristics determined by Vitamin B1 [facility]. It has not been Level) cleared orappro dontae by the Food and Drug Administration. Performed At: [facility] [id number] [place], [place] [id number] [place] MD Ph:[phone] [facility]
== END 2020-06-15 14:00 | disposition home or self-care (01) ==
LOC: DS 10:00
PROVIDERS: ATTEND Surgery
DX: N63.14 Unspecified lump in the right breast, lower inner quadrant (principal); N63.23 Unspecified lump in the left breast, lower outer quadrant
CPT/HCPCS: 19000; 19083; 19084; 88305

== ENCOUNTER 2021-08-24 19:01 | Observation (INO) | payer OTHER ==
--- OUTSIDE RECORDS SUMMARY | 2021-08-24 19:04 | XMS REPORT | Clinical Summary ---
:1966 Author Organization [facility] MD [facility] Address [address] [place] [address] Care Team Providers Name Role Phone Physician Primary Care Provider Unavailable MD Marco Unavailable MD Marco Unavailable Allergies Not on File Medications Not on file Active Problems Not on file Encounters Date Type Specialty Care Team Description 06/26/2021 Ancillary Procedure Radiology Jaqueline Bautista Can cer MD 06/26/2021 Ancillary Procedure Radiology Jaqueline Bautista Can cer MD 06/26/2021 Ancillary Procedure Radiology Jaqueline Bautista Can cer MD 06/26/2021 Ancillary Procedure Radiology Jaqueline Bautista Can cer MD 06/26/2021 Ancillary Procedure Radiology Jaqueline Bautista Can cer MD 06/26/2021 Ancillary Procedure Radiology Screenin g 06/26/2021 NPR Patient Access Services 06/26/2021 Travel after 08/24/2020 Social History Tobacco Use Types Packs/Day Years Used Date Never Assessed Sex Assigned at Date Recorded Not on file Job Start Date Occupation Industry Not on file Not on file Not on file Last Filed Vital Signs Not on file Plan of Treatment Not on file Procedures Procedure Name Priority Date/Time Associated Diagnosis Comme nts MAMMO DIGITAL Routine 06/26/2021 8:17 AM Screening Results for this SCREENING BILATERAL [employer]OR procedur e are in [facility] the results section. after 08/24/2020 Results Screening Mammogram [facility] - Bilateral (06/26/2021 8:17 AM [employer]VAGE INSPECTOR) Specimen Impressions [facility] - 06/26/2021 8:31 AM [employer]VAGE INSPECTOR There is no mammographic evidence of malignancy. Follow-up mammogram in 1 year is recomme nded. BI-RADS Category 2: Benign Finding(s) Mariah SAPP - 06/26/2021 8:31 AM [employer]AGE INSPECTOR CLINICAL INDICATION: Patient is a 55 year old female and is s een for screening. MAMMO DIGITAL SCREENING BILATERAL [facility] Digital Mammogram evaluated with Compute r Aided Detection (CAD). COMPARISON: The present examination has been compare d to prior imaging studies performed at an outside location on 12/07/2011, 12/15, 05/11/2016, 09/04/2017 and 04/27/2019. FINDINGS: There are scattered areas of fibroglandu lar density. There are benign appearing calcification s in both breasts. No dominant mass, architectural distortion, or suspicious microcalcifications are evident in either breast. Tomosynthesis performed in CC and [facility]LO pr ojections. Procedure Note Salina Davidson MD - 06/26/2021 CLINICAL INDICATION: Patient is a 55 year old female and is s een for screening. MAMMO DIGITAL SCREENING BILATERAL [facility] Digital Mammogram evaluated with Compute r Aided Detection (CAD). COMPARISON: The present examination has been compare d to prior imaging studies performed at an outside location on 12/07/2011, 12/15, 05/11/2016, 09/04/2017 and 04/27/2019. FINDINGS: There are scattered areas of fibroglandu lar density. There are benign appearing calcification s in both breasts. No dominant mass, architectural distortion, or suspicious microcalcifications are evident in either breast. Tomosynthesis performed in CC and [facility]LO pr ojections. IMPRESSION: There is no mammographic evidence of mal ignancy. Follow-up mammogram in 1 year is recomme nded. BI-RADS Category 2: Benign Finding(s) Performing Organization Address City/State/ZIP Code Phon e Number [id number] after 08/24/2020 Insurance Payer Benefit Plan / Subscriber ID Effective Dates Phone Addre ss Type Group [employer] MANAGED CIGNA O POS [id number] 2001-Present [id number] [facility] OPEN ACCESS CRISELDA Leach [phone] Care Teams Pharmacy Care Coordinator Relationship Specialty Start Date End Date Physician, Outside PCP - General Oncology 05/23/21 [place] [address] Georgina Lara MD PCP - External Referring Pharmacy 05/23/[address] [place] [address] [facility] [address] [place] [address] Georgina Lara MD PCP - External Follow Up A Pharmacy 05/23/[address] [place] [address] [facility] [address] [place] [address]
--- OUTSIDE RECORDS SUMMARY | 2021-08-24 19:05 | XMS REPORT | Continuity of Care Document ---
:1965 Author Organization [facility] t Address [address] [place] [address] Care Team Providers Name Role Phone [phone] Primary Care Physician Unavailable SYSTEM, NOT IN Attending Clinician Unavailable LEANN Attending Clinician Unavailable Michele MONTANO Attending Clinician MICHELE Attending Clinician Unavailable DARLEEN Attending Clinician Unavailable HE Attending Clinician Unavailable RADHA Attending Clinician Unavailable Elaine AGOSTO Attending Clinician Unavailable ARTI Attending Clinician Unavailable SILVANO Attending Clinician Unavailable CASEY Attending Clinician Unavailable LEXA Attending Clinician Unavailable XENIA Attending Clinician Unavailable CASEY Attending Clinician Unavailable NATHAN Attending Clinician Unavailable JOSE Attending Clinician Unavailable JOSE Attending Clinician Unavailable Payers Payer Name Policy Type Policy Number Effective Date Expiration Date Gertrudis ZENG MANAGED [id number] 2001 MD Kelli MANZO O 00:00:00 POS OPEN [id number] 2002-[facility] [address], [place] [address]ECW JOSE A/[employer]ARP [id number] 2020 MEDICARE 00:00:00 ADVANTAGE Problems Condition Condition Condition Status Onset Resolution [...] Active U nivers on on [place]y of [place] Physici ans Diplopia Diplopia Problem Active Unive rs [place] of [place] [facility]ici [facility] MYRTLE MYRTLE Problem Active Univers (obstructi (obstructi it y of ve sleep ve sleep [place] apnea) apnea) Physici ans History of History of Problem Resolve Univers cardiac cardiac d [place]y of [place] Allergies, Adverse Reactions, Alerts Allergy Allergy Status Severity Reaction(s) Onset Inactive Treating Comm ents Source Name Type Date Date Clinician OFLOXACI DRUG Active Anaphylaxis Uni vers N INGREDI 03-28 ity of 00:00: [place] 00 [facility] LATEX DRUG Active Rash Univers INGREDI 03-28 ity of 00:00: [place] 00 [facility] Branch QUINOLON Drug Active Anaphylaxis Uni vers ES Class 03-28 ity of 00:00: [place] 00 Medical Branch METOCLOP DRUG Active Anxiety Univers RAMIDE INGREDI 03-28 ity of HCL 00:00: [place] 00 Medical Branch SULFA Drug Active Rash Univers (SULFONA Class 03-28 ity of MIDE 00:00: [place] ANTIBIOT 00 Medical ICS) Branch RANITIDI DRUG Active Anxiety Univers NE HCL INGREDI 03-28 ity of 00:00: [place] 00 Medical Branch DICLOFEN DRUG Active N/V Univers AC INGREDI 03-28 ity of POTASSIU 00:00: [place] 00 Medical Branch CIPROFLO DRUG Active Anaphylaxis Uni vers XACIN INGREDI 03-28 ity of 00:00: [place] 00 [facility] Branch Adhesive Allergy Active Univers Tape to drug ity of TAPE (finding [place] ) Physici ans Latex Allergy Active Univers Gloves to drug ity of (finding [place] ) Physici ans Levaquin Allergy Active Univers to drug ity of (finding [place] Physici ans sulfa Allergy Active Univers to drug ity of (finding [place] ) Physici ans Advair Propensi Active Shortness [...] Active Univers to drug ity of (finding [place] ) Physici ans Social History Social Habit Start Date Stop Date Quantity Comments Source Sex Assigned At [birth year] MD Justice 00:00:00 00:00:00 Smoking Status Start Date Stop Date Source Never smoked tobacco (finding) U [facility] Physicians Medications Ordered Filled Start Stop Current Ordering Indication Dosage Frequency Signature Comments Components Source Medication Medication Date Date Medication? Clinician (SIG) Name Name Ottoniel baeGANciclo 2017-07 Yes Univers vir HCl - vir HCl - 0-12 ity o f 450 MG Oral 450 MG Oral 00:00: [place] Tablet Tablet 00 Physici ans Warfarin Warfarin 2017-07 Yes 1 QD TAKE 1 Uni vers Sodium 4 MG Sodium 4 MG 0-12 TABLET ity of Oral Tablet Oral Tablet 00:00: DAILY. [place] 00 Physici ans hydroCHLORO hydroCHLORO 2017-07 Yes 1 QD TAKE 1 Univers thiazide 25 thiazide 25 0-12 TABLET ity of MG Oral MG Oral 00:00: DAILY. [place] Tablet Tablet 00 Physici ans NovoLOG Mix [...] ity of Womens Oral Womens Oral 00:00: [place] Tablet Tablet 00 Physici ans Vitamin D Vitamin D Yes NIK Take 1 Univers (Ergocalcif (Ergocalcif 5-29 PEÑA N.P. capsule ity of keny) 18[address] keny) 40497 00:00: two times [place] UNIT Oral UNIT Oral 00 per week P hysici Capsule Capsule ans Vital Signs Vital Name Observation Time Observation Value Comments Source BP Systolic 2018-10-10 120 mm[Hg] Location: [facility] 10:36:00 Position: [place] Physician s Sitting BP Diastolic 2018-10-10 80 mm[Hg] Location: [facility] 10:36:00 Position: [place] Physician s Sitting Height 2018-10-10 61 [in_us] [facility] 10:36:00 [place] Physician s Weight 2018-10-10 243 [lb_av] University 10:36:00 [place] Physician s Body Mass Index 2018-10-10 45.91 kg/m2 University o f Calculated 10:36:00 [place] Physician s Heart Rate 2018-10-10 94 /min [facility] 10:36:00 [place] Physician s BP Systolic 2018-05-02 119 mm[Hg] University 10:57:00 [place] Physician s BP Diastolic 2018-05-02 82 mm[Hg] [place] of 10:57:00 [place] Physician s Height 2018-05-02 61 [in_us] [facility] 10:57:00 [place] Physician s Weight 2018-05-02 236 [lb_av] University 10:57:00 [place] Physician s Body Mass Index 2018-05-02 44.59 kg/m2 University o f Calculated 10:57:00 [place] Physician s Heart Rate 2018-05-02 78 /min University of 10:57:00 [place] Physician s BP Systolic 2018-03-25 130 mm[Hg] Location: [facility] 17:27:00 Position: [place] Physician s Sitting BP Diastolic 2018-03-25 87 mm[Hg] Location: [facility] 17:27:00 Position: [place] Physician s Sitting Height 2018-03-25 63 [in_us] University of 17:27:00 [place] Physician s Weight 2018-03-25 241.3125 [lb_av] University 17:27:00 [place] Physician s Body Mass Index 2018-03-25 42.75 kg/m2 University o f Calculated 17:27:00 [place] Physician s Temperature 2018-03-25 98.1 [degF] Method: Oral University of 17:27:00 [place] Physician s Heart Rate 2018-03-25 98 /min [facility] 17:27:00 [place] Physician s BP Systolic 2018-03-18 [...] [place] Physician s Temperature 2018-03-18 96.8 [degF] University of 11:44:00 [place] Physician s Heart Rate 2018-03-18 98 /min University of 11:44:00 [place] Physician s BP Systolic 2018-01-24 150 mm[Hg] University of 13:37:00 [place] Physician s BP Diastolic 2018-01-24 98 mm[Hg] University of 13:37:00 [place] Physician s Height 2018-01-24 63 [in_us] University of 13:37:00 [place] Physician s Weight 2018-01-24 248.3 [lb_av] University 13:37:00 [place] Physician s Body Mass Index 2018-01-24 43.98 kg/m2 University o f Calculated 13:37:00 [place] Physician s Temperature 2018-01-24 98.1 [degF] University 13:37:00 [place] Physician s Heart Rate 2018-01-24 81 /min [facility] 13:37:00 [place] Physician s Procedures Procedure Date / Time Performing Clinician Source Performed MAMMO DIGITAL SCREENING 2021-06-26 14:17:02 Georgina Lara BILATERAL W [place] [LH] CBC (without 2018-10-06 00:00:00 [facility] differential) Physicians [QL] COMPREHENSIVE 2018-10-06 00:00:00 [facility] METABOLIC PANEL W/O eGFR Physici ans [QLH] FOLATE, SERUM 2018-10-06 00:[facility] Physicians [QLH] HEMOGLOBIN A1c 2018-10-06 00:00:00 [facility] Physicians [QL] IRON AND TOTAL 2018-10-06 00:00:00 [facility] IRON BINDING CAPACITY Physicians [QL] LIPID PANEL 2018-10-06 00:00:00 [facility] Physicians [QL] PTH, INTACT 2018-10-06 00:00:00 [facility] (WITHOUT CALCIUM) Physicians [QL] TSH, 3RD 2018-10-06 00:00:00 [facility] GENERATION Physicians [QL] VITAMIN A 2018-10-06 00:00:00 [facility] (RETINOL) Physicians [QL] VITAMIN B1, WHOLE 2018-10-06 00:00:00 [facility] BLOOD Physicians [QL] VITAMIN B12 2018-10-06 00:00:00 [facility] Physicians [QL] VITAMIN D, 2018-10-06 00:00:00 [facility] 25-HYDROXY, LC/MS/MS Physicians [QL] VITAMIN E 2018-10-06 00:00:00 [facility] (TOCOPHEROL) Physicians [LH] CBC (without 2018-07-07 00:00:00 [facility] differential) Physicians [QL] COMPREHENSIVE 2018-07-07 00:00:00 [facility] METABOLIC PANEL W/O eGFR Physici ans [QLH] FOLATE, SERUM 2018-07-07 00:00:00 [facility] Physicians [QLH] HEMOGLOBIN A1c 2018-07-07 00:00:00 [facility] Physicians [QLH] LIPID PANEL 2018-07-07 00:00:00 [facility] Physicians [QLH] PTH, INTACT 2018-07-07 00:00:00 [facility] (WITHOUT CALCIUM) Physicians [QLH] TSH, 3RD 2018-07-07 00:00:00 [place] [facility] GENERATION Physicians [QLH] VITAMIN A 2018-07-07 00:00:00 [facility] (RETINOL) Physicians [QLH] VITAMIN B1, WHOLE 2018-07-07 00:00:00 [facility] BLOOD Physicians [QLH] VITAMIN B12 2018-07-07 00:00:00 [facility] Physicians [QLH] VITAMIN D, 2018-07-07 00:00:00 [facility] 25-HYDROXY, LC/MS/MS Physicians [QLH] VITAMIN E 2018-07-07 00:00:00 [facility] (TOCOPHEROL) Physicians [QLH] IRON AND TOTAL 2018-07-07 00:00:00 [facility] IRON BINDING CAPACITY Physicians [L] Vitamin D, 2018-03-18 00:00:00 [facility] 25-Hydroxy, Total - Physicians [employer] [LH] CBC (without 2018-03-18 00:00:00 [facility] differential) Physicians [QLH] FOLATE, SERUM 2018-03-18 00:00:00 [facility] Physicians [QLH] IRON, TOTAL 2018-03-18 00:00:00 [facility] Physicians [QLH] PTH, INTACT 2018-03-18 00:00:00 [facility] (WITHOUT CALCIUM) Physicians [QLH] TSH, 3RD 2018-03-18 00:00:00 [facility] GENERATION Physicians [QLH] VITAMIN A 2018-03-18 00:00:00 [facility] (RETINOL) Physicians [QLH] VITAMIN B1, WHOLE 2018-03-18 00:00:00 [facility] BLOOD Physicians [QLH] VITAMIN B12 2018-03-18 00:00:00 [facility] Physicians [QLH] VITAMIN E 2018-03-18 00:00:00 [facility] (TOCOPHEROL) Physicians GI Stomach UGI w/KUB air 2018-03-18 00:00:00 [facility] cont and Esophagus Ba Physicians swallow [id number] [L] Vitamin D, 2017-12-16 00:00:00 [facility] 25-Hydroxy, Total - Physicians [employer] [LH] CBC (without 2017-12-16 00:00:00 [facility] differential) Physicians [QL] COMPREHENSIVE 2017-12-16 00:00:00 [facility] METABOLIC PANEL W/O eGFR Physici ans [QLH] FOLATE, SERUM 2017-12-16 00:00:00 [facility] Physicians [QL] HEMOGLOBIN A1c 2017-12-16 00:00:00 [facility] Physicians [QL] IRON, TOTAL 2017-12-16 00:00:00 [facility] Physicians [QL] LIPID PANEL 2017-12-16 00:00:00 [facility] Physicians [QL] PTH, INTACT 2017-12-16 00:00:00 [facility] (WITHOUT CALCIUM) Physicians [[facility]] TSH, 3RD 2017-12-16 00:00:00 [facility] GENERATION Physicians [QL] VITAMIN A 2017-12-16 00:00:00 [facility] (RETINOL) Physicians [[facility]] VITAMIN B1, WHOLE 2017-12-16 00:00:00 [facility] BLOOD Physicians [QL] VITAMIN B12 2017-12-16 00:00:00 [facility] Physicians [[facility]] VITAMIN E 2017-12-16 00:00:00 [facility] (TOCOPHEROL) Physicians History of Pacemaker [facility] Placement Physicians Encounters Start End Encounter Admission Attending Care Care Encounter Source Date/Time Date/Time Type Type Clinicians Facility Department ID 2021-06-26 Outpatient DWIGHT LE MDA [id number] 07:31:05 PROVIDER Kilo ashton 2021-08-22 2021-08-22 Outpatient LEANN [facility] [id number] [place] 00:00:00 00:00:00 DON [address] 2021-08-04 2021-08-04 Outpatient [facility] [id number] [place] 00:00:00 00:00:[address] 2021-06-26 2021-06-26 Outpatient MANDO HYLTON MDA MDA [id number] 08:08:00 08:08:00 EYAL ashton 2021-06-26 2021-06-26 Outpatient MANDO HYLTON MDA MDA [id number] 08:08:00 08:08:00 EYAL ashton 2021-06-26 2021-06-26 Outpatient MANDO HYLTON MDA MDA [id number] MD 08:07:59 08:07:59 LONZETTA Josh so n 2021-06-26 2021-06-26 Outpatient EL MICHELE, MDA MDA [id number] MD 08:07:59 08:07:59 LONZETTA Josh so n 2021-06-26 2021-06-26 Outpatient EL MICHELE MDA MDA [id number] MD 08:07:57 08:07:57 LONZETTA Josh so n 2021-06-26 2021-06-26 Outpatient EL MDA MDA [id number] MD 07:36:48 07:36:48 Kilo o n 2021-06-26 2021-06-26 Outpatient EL MDA MDA [id number] MD 07:34:53 07:34:58 Kilo o n 2021-04-25 2021-04-25 Outpatient DARLEEN, [facility] [id number] [place] 00:00:00 00:00:00 FILIPPO 069 Method i 2021-01-11 2021-01-11 Outpatient SITTER, [facility] [id number] [place] 00:00:00 00:00:00 ELIO 995 Method i 2020-12-01 2020-12-01 Outpatient SITTER, [facility] [id number] 071 [place] 00:00:00 00:00:00 ELIO 044 Method i 2020-12-01 2020-12-01 Outpatient SITTER, [facility] [id number] [place] 00:00:00 00:00:00 ELIO 086 Method i 2020-12-01 2020-12-01 Outpatient SITTER, [facility] [id number] [place] 00:00:00 00:00:00 ELIO 952 Method i 2020-10-21 2020-10-21 Outpatient ROBBEN, [facility] [id number] [place] 00:00:00 00:00:00 JEIMY 428 thdae 2020-09-30 2020-09-30 Outpatient [facility] [id number] [place] 00:00:00 00:00:00 381 Method i 2020-09-02 2020-09-02 Outpatient Masood AGOSTO [facility] [id number] Univers 15:20:00 15:20:[id number] [facility] 2020-09-02 2020-09-02 Outpatient Masood AGOSTO, [facility] [id number] Univers 15:20:00 15:20:[address] [facility] 2020-08-05 2020-08-05 Outpatient Masood AGOSTO, [facility] [id number] Univers 16:30:00 16:30:[address] [facility] 2019-10-09 2019-10-[facility] [id number] Univers 11:00:00 11:00:00 t; QUE Esparza ity of TALLAV[place] M.[place]. 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 [place], SUDHA, Physi ci M.DTobin ans 2018-10-06 2018-10-06 Appointmen JOSE PEÑA [id number] Univers 12:30:00 12:30:00 t; NIK PEÑA NP Multi i ty of RAINER ZARAGOZA Specialty [place] as Physici ans 2018-10-06 2018-10-06 Outpatient [facility] [id number] 12:30:00 12:0918 2018-10-03 2018-10-03 Appointmen BUD GARCIA [facility] [id number] Univers 10:30:00 10:30:00 t; QUE Esparza ity of [place] M.D. [place] QUE AMIN, Physi ci M.D. ans 2018-07-07 2018-07-07 Outpatient [facility] [id number] 12:30:00 14:11:07 2018-07-07 2018-07-07 Appointmen JOSE PEÑA [id number] Univers 12:30:00 12:30:00 t; NIK PEÑA NP Surgery i ty of RAINER ZARAGO[place] Specialty [facility] [place] [facility] Physici ans 2018-07-04 2018-07-04 Appointmen JOSE PEÑA [facility] [id number] Univers 12:45:00 12:45:00 t; NIK PEÑA NP i ty of RAINER ZARAGOZA [place] Physici ans 2018-07-04 2018-07-04 Appointmen BUD [facility] [id number] Univers 11:00:00 11:00:00 t; QUE Esparza ity of RICHIERUTH [place] BRENNAN, QUE, Physi ci M.DTobin ans 2018-06-17 2018-06-17 Appointmen SHOSHANA [facility] [id number] Univers 10:15:00 10:15:00 t; NJLUIUS, [place] of ROJAS [facility] [place], JULIUS, Physi ci RD ans 2018-05-26 2018-05-26 Appointmen JOSE MICHAELS [facility] [id number] Univers 10:00:00 10:00:00 t; GEORGINA MICHAELS M.D. ity of Lewis ERICKSON [place] Physici ans 2018-05-15 2018-05-15 AppointJOSE Vazquez [id number] Univers 09:45:00 09:45:00 t; NIK PEÑA Multi ity of JUAN F ZARAGOZA Specialty [place] MANAGER TELE[employer] Physici ans 2018-05-02 2018-05-02 Appointmen JOSE PEÑA [facility] [id number] Univers 13:30:00 13:30:00 t; NIK PEÑA NP i ty of RANIER ZARAGOZA [place] Physici ans 2018-05-02 2018-05-02 [facility] [id number] Univers 10:30:00 10:30:00 t; QUE Esparza ity of [place], QUE, Physi ci M.DTobin ans 2018-04-14 2018-04-14 Appointmen JOSE MICHAELS General [id number] Univers 09:00:00 09:00:00 t; GEORGINA MICHAELS M.D. Surgery ity of [place] ERICKSON [place] Physici ans 2018-04-02 2018-04-02 Appointmen JOSE MICHAELS UTP [id number] Univers 10:00:00 10:00:00 t; GEORGINA MICHAELS M.D. ity of [place] Physici ans 2018-03-25 2018-03-25 Appointmen SHOSHANA GARCIA UTP [id number] Univers 15:00:00 15:00:00 t; JULIUS Ashton, ity of ROJAS CABA [place], JULIUS, Physi ci RD ans 2018-03-25 2018-03-25 Appointmen JOSE PEÑA Serena [id number] Univers 13:45:00 13:45:00 t; NIK PEÑA, Surgery ity of JUAN F ZARAGOZA [facility] Physici ans 2018-03-20 2018-03-20 Appointmen SHOSHANA [facility] UTP [id number] Univers 15:00:00 15:00:00 t; JULIUS Ashton, ity of ROJAS CABA [place], JULIUS, Physi ci RD ans 2018-03-18 2018-03-18 Appointmen JOSE EVANS [facility] [id number] Univers 13:30:00 13:30:00 t; LEONORA EVANS, Invasive ity of Lewis ARVIZU [facility] Jamie mosqueda M.D. [place] Physici ([facility]) ans 2018-02-20 2018-02-20 Appointmen SHOSHANA [facility] UTP [id number] Univers 12:45:00 12:45:00 t; JULIUS Ashton ity of ROJAS CABA [place], JLUIUS, Physi ci RD ans 2018-01-24 2018-01-24 Appointmen JOSE PEÑA [facility] [id number] Univers 13:30:00 13:30:00 t; NIK PEÑA NP General & ity of RAINER ZARAGOZA Bariatric David as Surgery Physici ans 2018-01-09 2018-01-09 Appointmen SHOSHANA GARCIA UTP [id number] Univers 13:00:00 13:00:00 t; NJULIUS, ity of [address] [place], JULIUS, Physi ci RD ans 2017-12-16 2017-12-16 Appointmen JOSE MICHAELS Serena [id number] Univers 08:30:00 08:30:00 t; GEORGINA MICHAELS M.D. Surgery ity of [place] ERICKSON Specialty David as Physici ans 2017-02-15 2017-02-15 Appointmen JOSE, JOSE UTP [id number] Univers 08:45:00 08:45:00 t; EDI GARCIA, ity of EDI, DPM [place] DP Physici ans 2017-01-18 2017-01-18 Appointmen JOSE, JOSE UTP [id number] Univers 08:45:00 08:45:00 t; EDI GARCIA, ity of EDI, DPM [facility] Physici ans 2017-01-09 2017-01-09 Appointmen JOSE GARCIA UTP [id number] Univers 11:30:00 11:30:00 t; EDI GARCIA ity of EDI, DPM [place] DP Physici ans 2016-12-21 2016-12-21 Appointmen JOSE GARCIA UTP [id number] Univers 11:15:00 11:15:00 t; EDI GARCIA ity of EDI, DPM [place] DP Physici ans 2016-06-25 2016-06-25 Appointmen JOSE, JOSE UTP [id number] Univers 10:15:00 10:15:00 t; EDI GARCIA o f EDI [place] Physici ans Results Test Description Test Time Test Comments Results Result Comments Source [[facility]] CMP W/EGFR 2018-07-07 13:27:01 Test Item Value Reference Range Interpretation Comme nts Sodium Level (test code 144 {mEq/l} 135-145 = 2951-2) Potassium Level (test 4.1 {mEq/l} 3.5-5.1 code = 2823-3) Chloride Level (test 107 {mEq/l} 95-109 code = 2075-0) Carbon Dioxide (test 32 {mEq/l} 24-32 code = 2028-9) AGAP; Below Low 9.1 {mEq/l} 10.0-20.0 Threshold (test code = 90882-5) Glucose Lvl (test code = 82 mg/dl 70-99 Boo lt reference range values 2345-7) reflect the cli nical guidelinesof th e [place] Diabetes Associ ation. Creatinine Lvl (test 0.70 mg/dl 0.50-1.40 code = 2160-0) Blood Urea Nitrogen 15 mg/dl 7-22 (test code = 3094-0) BUN/Creatinine Ratio 21 6-25 (test code = 3097-3) Total Protein (test code 7.1 g/dl 6.4-8.4 = 2885-2) Albumin Lvl (test code = 4.0 g/dl 3.5-5.0 1751-7) Globulin (test code = 3.1 g/dl 2.7-4.2 48819-9) A/G Ratio (test code = 1.3 0.7-1.6 1759-0) Calcium Level Total 9.5 mg/dl 8.5-10.5 (test code = 89539-7) ALT (test code = 1743-4) 19 u/l 0-65 AST (test code = 16 u/l 0-37 35952-3) Alk Phos (test code = 85 u/l 39-136 1783-0) Bili Total (test code = 0.6 mg/dl 0.2-1.3 1974-08) eGFR (test code = 101 {ML/MIN/1.7} The eG FR is calculated using the 11544-2) CKD-EPI formula . In most young, healthyindividu [...] data a alex are obtained from the Nation al Kidney Disease Education Progr am(NKDEP) which additionally re commends that when the eGFR i s used in patientswith ex tremes of body mass index for purposes of drug dosing, the eGF R shouldbe multiplied by t he estimated BMI. [facility]] FOLATE, [id number] 13:27:01 Test Item Value Reference Range Interpretation Comments Folate Level (test code = 2284-8) 12.1 ng/ml >=3.0 [facility]] IRON AND TOTAL IRON BINDING CAPACITY 2018-07-07 13:27:01 Test Item Value Reference Range Interpretation Comments Iron (test code = 2498-4) 58 ug/dL 30-160 % [place] (test code = 2502-3) 19 % 12-57 TIBC (test code = 2500-7) 308 ug/dL 228-428 UIBC (test code = UIBC) 250 ug/dL 110-370 [facility]] LIPID [id number] 13:27:01 Test Item Value Reference Range Interpretation Comments Chol (test code = 2093-3) 163 mg/dl <=199 Trig (test code = 2571-8) 115 mg/dl <=149 HDL Cholesterol; Below Low 49 mg/dl >=61 Threshold (test code = 2085-9) CHD Risk; Below Low Threshold (test 3.33 3.90-5.80 code = 95319-3) LDL (test code = 47884-1) 91 mg/dl <=99 VLDL (test code = VLDL) 23 [facility]] TSH, 3RD [id number] 13:27:01 Test Item Value Reference Range Interpretation Comments TSH (test code = 75177-2) 1.960 {uIU/ml} 0.360-3.740 [facility]] VITAMIN [id number] 13:27:01 Test Item Value Reference Range Interpretation Comments Vitamin B12 Level (test code = 367 pg/ml 254-1320 2132-9) [facility][] CBC (without differential)2018-07-07 13:27:01 Test Item Value Reference Range Interpretation Comments WBC (test code = 6690-2) 7.6 {K/CMM} 3.7-10.4 RBC (test code = 789-8) 4.93 {M/CMM} 4.20-5.40 Hgb (test code = 718-7) 14.4 g/dl 12.0-16.0 Hct (test code = 74464-8) 42.6 % 36.0-48.0 MCV (test code = 787-2) 86.4 fL 80.0-98.0 MCH (test code = 785-6) 29.2 pg 27.0-31.0 MCHC (test code = 786-4) 33.8 g/dl 32.0-36.0 RDW; Above High Threshold (test 14.8 % 11.5-14.5 code = 788-0) Platelet (test code = 74524-2) 268 {K/CMM} 133-450 Mean Platelet Volume (test code 9.7 fL 7.4-10.4 = 02576-3) [facility]] PTH, INTACT (WITHOUT CALCIUM)2018-07-07 13:27:01 Test Item Value Reference Range Interpretation Comments Parathyroid Hormone Intact (test 59.2 pg/ml 18.4-80.1 code = 2731-8) [facility]] VITAMIN D, 25-HYDROXY, LC/[id number] 13:27:01 Test Item Value Reference Range Interpretation Comments Vitamin D, 25-OH, 22.4 ng/ml 30.0-100.0 Reference range is based Total (test code on recommen dations in the = Vitamin D, EndocrineSociet y Clinical 25-OH, Total) Practice Guide line (J Clin Endocrinol Ohbpf3949;96:19 11-1930) [facility]] HEMOGLOBIN [id number] 13:27:01 Test Item Value Reference Range Interpretation Comments Hemoglobin A1c (test code = 4548-4) 5.4 % <=5.6 [facility]] VITAMIN B1, WHOLE [id number] 13:27:01 Test Item Value Reference Range Interpretation Comments Vitamin B1 134.8 66.5-200.0 This test was d eveloped and its Level (test nmol/L performance code = characteristics determined by Vitamin B1 [facility]. It has not been Level) cleared orappro dontae by the Food and Drug Administration. Performed At: [facility] [id number] [place], [place] [id number] ra Yin MONTANO Ph:[phone] [facility][H] Vit [id number] 13:27:01 Test Item Value Reference Range Interpretation [...] and i ts performance characteristics determined by [facility]. It has not been cleared orappro dontae by the Food and Drug Administration. Performed At: [facility] [id number] ra Yin MONTANO Ph:[phone] [facility][H] Vitamin E [id number] 13:27:01 Test Item Value Reference Range Interpretation Comments Alpha-Tocoph 13.9 mg/L 7.0-25.1 keny (test code = Alpha-Tocoph keny) Gamma-Tocoph 1.3 mg/L 0.5-5.5 Reference inter vals for alpha keny (test and gamma-tocop heroldetermined code = from National H ealth and Gamma-Tocoph Nutrition Exami nationSurvey, keny) 5484-1914. Dorothy viduals with alpha-tocophero l levelsless than 5.0 mg/L are co nsidered vitamin E deficient.Thi s test was developed and i ts performance characteristics determined by [facility]. It has not been cleared orapproved by [facility] Food and Drug Administration. Performed At: [facility] [id number] ra Yin MONTANO Ph:[phone] [facility]] HEMOGLOBIN [id number] 10:06:01 Test Item Value Reference Range Interpretation Comments Hemoglobin A1c; Above High Threshold 6.9 % <=5.6 (test code = 4548-4) [facility]] CBC (INCLUDES DIFF/PLT)2018-05-15 10:06:01 Test Item Value Reference Range Interpretation Comments WBC (test code = 6690-2) 8.3 {K/CMM} 3.7-10.4 RBC (test code = 789-8) 4.35 {M/CMM} 4.20-5.40 Hgb (test code = 718-7) 13.2 g/dl 12.0-16.0 Hct (test code = 50215-5) 39.3 % 36.0-48.0 MCV (test code = 787-2) 90.5 fL 80.0-98.0 MCH (test code = 785-6) 30.4 pg 27.0-31.0 MCHC (test code = 786-4) 33.6 g/dl 32.0-36.0 RDW (test code = 788-0) 14.1 % 11.5-14.5 Platelet (test code = 19523-6) 293 {K/CMM} 133-450 Mean Platelet Volume (test code 8.7 fL 7.4-10.4 = 60657-5) [facility]] [id number] 10:06:01 Test Item Value Reference Range Interpretation Comments Segmented Neutrophils (test code 60.2 % 45.0-75.0 = 57368-5) Monocytes (test code = 95316-3) 6.1 % 2.0-12.0 Lymphocytes (test code = 76024-4) 31.7 % 20.0-40.0 Eosinophils (test code = 45061-1) 1.5 % 0.0-4.0 Basophils (test code = 706-2) 0.5 % 0.0-1.0 Segs-Bands # (test code = 5.0 {K/CMM} 1.5-8.1 84980-7) Lymphocytes # (test code = 2.6 {K/CMM} 1.0-5.5 67657-1) Monocytes # (test code = 92889-6) 0.5 {K/CMM} 0.0-0.8 Eosinophils # (test code = 0.1 {K/CMM} 0.0-0.5 47371-4) [facility]] PTH, INTACT (WITHOUT CALCIUM)2018-05-15 10:06:01 Test Item Value Reference Range Interpretation Comments Parathyroid Hormone Intact (test 63.0 pg/ml 18.4-80.1 code = 2731-8) [facility]] CMP [id number] 10:06:01 Test Item Value Reference Range Interpretation Comments Sodium Level 139 {mEq/l} 135-145 (test code = 2951-2) Potassium Level 4.3 {mEq/l} 3.5-5.1 (test code = 2823-3) Chloride Level 99 {mEq/l} 95-109 (test code = 2075-0) Carbon Dioxide 29 {mEq/l} 24-32 (test code = 2027-9) AGAP (test code = 15.3 {mEq/l} 10.0-20.0 28463-2) Glucose Lvl; 164 mg/dl 70-99 Adult reference range Above High values reflect the Threshold (test clinical rosalinda delinesof the code = 2345-7) [place] [employer]. Creatinine Lvl 1.00 mg/dl 0.50-1.40 (test code = 2160-0) Blood Urea 21 mg/dl 7-22 Nitrogen (test code = 3094-0) BUN/Creatinine 21 6-25 Ratio (test code = 3097-3) Total Protein 7.6 g/dl 6.4-8.4 (test code = 2885-2) Albumin Lvl (test 3.9 g/dl 3.5-5.0 code = 1751-7) Globulin (test 3.7 g/dl 2.7-4.2 code = 59484-6) A/G Ratio (test 1.1 0.7-1.6 code = 1759-0) Calcium Level 9.3 mg/dl 8.5-10.5 Total (test code = 52169-8) ALT (test code = 64 u/l 0-65 3-4) AST (test code = 34 u/l 0-37 96726-0) Bili Total (test 0.5 mg/dl 0.2-1.3 code = 1974-2) Alk Phos (test 92 u/l 39-136 code = 1783-0) eGFR (test code = 65 The eGFR i s calculated 92851-7) {ML/MIN/1.7} using the CKD-E PI formula. In [...] be multiplied by t he estimated BMI. [facility]] IRON, [id number] 10:06:01 Test Item Value Reference Range Interpretation Comments Iron (test code = 2498-4) 60 ug/dL 30-160 [facility] LIPID [id number] 10:06:01 Test Item Value Reference Range Interpretation Comments Chol; Above High Threshold (test 204 mg/dl <=199 code = 2093-3) Trig; Above High Threshold (test 161 mg/dl <=149 code = 2571-8) HDL Cholesterol; Below Low 44 mg/dl >=61 Threshold (test code = 2085-9) CHD Risk (test code = 17105-0) 4.64 3.90-5.80 LDL; Above High Threshold (test 128 mg/dl <=99 code = 50297-4) VLDL (test code = VLDL) 32 [facility]] TSH, 3RD [id number] 10:06:01 Test Item Value Reference Range Interpretation Comments TSH; Above High Threshold 4.050 {uIU/ml} 0.360-3.740 (test code = 82538-3) [facility]] VITAMIN [id number] 10:06:01 Test Item Value Reference Range Interpretation Comments Vitamin B12 Level (test code = 1195 pg/ml 254-1320 2132-9) [facility]] FOLATE, [id number] 10:06:01 Test Item Value Reference Range Interpretation Comments Folate Level (test code = 2284-8) 32.7 ng/ml >=3.0 [facility]] VITAMIN D, 25-HYDROXY, [id number] 10:06:01 Test Item Value Reference Range Interpretation Comments Vitamin D, 25-OH, 62.6 ng/ml 30.0-100.0 Reference range is based Total (test code on recommen dations in the = Vitamin D, EndocrineSociet y Clinical 25-OH, Total) Practice Guide line (J Clin Endocrinol Gwobx1978;96:19 11-1930) [facility][H] Vit [id number] 10:06:01 Test Item Value Reference Range Interpretation [...] and i ts performance characteristics determined by [facility]. It has not been cleared orappro dontae by the Food and Drug Administration. Performed At: [facility] [address] [place], [place] [id number] k Ronnie Colordao MD Ph:[phone] [facility][H] Vitamin E [id number] 10:06:01 Test Item Value Reference Range Interpretation [...] It has not been cleared orapproved by t Food and Drug Administration. Performed At: [facility] qpa[address] [place], [place] [id number] miguelito [place] MD Ph:[phone] [facility]] VITAMIN B1, WHOLE [id number] 10:06:01 Test Item Value Reference Range Interpretation Comments Vitamin B1 190.3 66.5-200.0 This test was d eveloped and its Level (test nmol/L performance code = characteristics determined by Vitamin B1 [facility]. It has not been Level) cleared orappro dontae by the Food and Drug Administration. Performed At: [facility] [address] [place], [place] [id number] miguelito [place] MD Ph:[phone] [facility]] Vitamin D 25-Hydroxy [id number] 10:06:01 Test Item Value Reference Range Interpretation Comments Vitamin D, 25-OH, 53 ng/ml Reference Range:All Total (test code = Ages: Tar get levels 30 Vitamin D, 25-OH, - 100 Total) Vitamin D2 25-OH (test <1.0 code = Vitamin D2 25-OH) Vitamin D3 25-OH (test 53 ng/ml Perfo rmed At: ES code = Vitamin D3 [facility] ce1543 Lost 25-OH) [place], [place] [id number] valeriy Gonzalez MD Ph:[phone] [facility] PhysiciansGI Stomach UGI w/air cont and Esophagus Ba swallow [id number] 10:17:00Patient Name: RAJEEV REYNAOB: 1965; Age: 53 years y/o FemaleMR: [id number]: UGI w air contrast and Ba swallow DX 03/28/2018 10:17 AM CDTOrdering Physician: MD Leonora Evans, MDClinical Indication: - K21.9 Gastro-esophageal reflux [...] is normal.IMPRESSION: Unremarkable.Total fluoroscopy time 4.9 minutes.SL: [id number]--Ycfc by:Lawrence Palacios MDDictated Date/time: 03/28/18 13:47Electronically Signed by: Lawrence Palacios MD 03/28/1813:49FINAL REPORTCent[facility]] CMP [id number] 11:00:01 Test Item Value Reference Range Interpretation Comments Sodium Level 142 {mEq/l} 135-145 (test code = 2951-2) Potassium Level 4.3 {mEq/l} 3.5-5.1 (test code = 2823-3) Chloride Level 106 {mEq/l} 95-109 (test code = 2075-0) Carbon Dioxide 29 {mEq/l} 24-32 (test code = 8-9) AGAP (test code = 11.3 {mEq/l} 10.0-20.0 88145-7) Glucose Lvl (test 82 mg/dl 70-99 Adult refe rence range code = 2345-7) values reflec t the clinical guidel inesof the [place] Diabet es Association. Creatinine Lvl 0.70 mg/dl 0.50-1.40 (test code = 2160-0) Blood Urea 14 mg/dl 7-22 Nitrogen (test code = 3094-0) BUN/Creatinine 20 6-25 Ratio (test code = 3097-3) Total Protein 7.1 g/dl 6.4-8.4 (test code = 2885-2) Albumin Lvl (test 4.0 g/dl 3.5-5.0 code = 1751-7) Globulin (test 3.1 g/dl 2.7-4.2 code = 88062-7) A/G Ratio (test 1.3 0.7-1.6 code = 1759-0) Calcium Level 9.1 mg/dl 8.5-10.5 Total (test code = 89801-0) ALT (test code = 22 u/l 0-65 1743-4) AST (test code = 18 u/l 0-37 75615-0) Bili Total (test 0.6 mg/dl 0.2-1.3 code = 1975-2) Alk Phos (test 82 u/l 39-136 code = 1783-0) eGFR (test code = 101 The eGFR i s calculated 59592-5) {ML/MIN/1.7} using the CKD-E PI formula. In [...] be multiplied by t he estimated BMI. [facility]] FOLATE, [id number] 11:00:01 Test Item Value Reference Range Interpretation Comments Folate Level (test code = 2284-8) 9.8 ng/ml >=3.0 [facility]] IRON, [id number] 11:00:01 Test Item Value Reference Range Interpretation Comments Iron (test code = 2498-4) 83 ug/dL 30-160 [facility]] LIPID [id number] 11:00:01 Test Item Value Reference Range Interpretation Comments Chol (test code = 2093-3) 193 mg/dl <=199 Trig; Above High Threshold (test 219 mg/dl <=149 code = 2571-8) HDL Cholesterol; Below Low 50 mg/dl >=61 Threshold (test code = 2085-9) CHD Risk; Below Low Threshold (test 3.86 3.90-5.80 code = 33058-4) LDL (test code = 42415-0) 99 mg/dl <=99 VLDL (test code = VLDL) 44 [facility]] TSH, 3RD [id number] 11:00:01 Test Item Value Reference Range Interpretation Comments TSH (test code = 52811-9) 1.610 {uIU/ml} 0.360-3.740 [facility]] VITAMIN [id number] 11:00:01 Test Item Value Reference Range Interpretation Comments Vitamin B12 Level; Below Low 203 pg/ml 254-1320 Threshold (test code = 2132-9) [facility][] CBC (without differential)2017-12-16 11:00:01 Test Item Value Reference Range Interpretation Comments WBC (test code = 6690-2) 7.6 {K/CMM} 3.7-10.4 RBC (test code = 789-8) 5.08 {M/CMM} 4.20-5.40 Hgb (test code = 718-7) 14.9 g/dl 12.0-16.0 Hct (test code = 28682-2) 44.1 % 36.0-48.0 MCV (test code = 787-2) 86.8 fL 80.0-98.0 MCH (test code = 785-6) 29.3 pg 27.0-31.0 MCHC (test code = 786-4) 33.8 g/dl 32.0-36.0 RDW (test code = 788-0) 14.5 % 11.5-14.5 Platelet (test code = 28288-5) 249 {K/CMM} 133-450 Mean Platelet Volume (test code 9.5 fL 7.4-10.4 = 73152-6) [facility]] PTH, INTACT (WITHOUT CALCIUM)2017-12-16 11:00:01 Test Item Value Reference Range Interpretation Comments Parathyroid Hormone Intact (test 59.7 pg/ml 18.4-80.1 code = 2731-8) [facility]] HEMOGLOBIN [id number] 11:00:01 Test Item Value Reference Range Interpretation Comments Hemoglobin A1c (test code = 4548-4) 5.2 % <=5.6 [facility]] VITAMIN D, 25-HYDROXY, [id number] 11:00:01 Test Item Value Reference Range Interpretation Comments Vitamin D, 25-OH, 17.8 ng/ml 30.0-100.0 Reference range is based Total (test code on recommen dations in the = Vitamin D, EndocrineSociet y Clinical 25-OH, Total) Practice Guide line (J Clin Endocrinol Uclez5497;96:19 11-1930) [facility][H] Vit [id number] 11:00:01 Test Item Value Reference Range Interpretation Comments Vitamin A 41.0 ug/dL 33.1-100.0 Reference inter vals for vitamin Level (test A determined fr om code = [facility] and Nutrition Vitamin A Examination Marlin vey, Level) .Indiv iduals with vitamin A less than 20 ug/dL areconsidered v itamin A deficient and t hose with serumconcentrat ions less than 10 ug/dL are co nsidered severelydeficie nt.This test was developed and i ts performance characteristics determined by [facility]. It has not been cleared orappro dontae by the Food and Drug Administration. Performed At: [facility] [id number] [place] [id number] miguelito [place] MD Ph:[phone] [facility][H] Vitamin E [id number] 11:00:01 Test Item Value Reference Range Interpretation [...] and i ts performance characteristics determined by [facility]. It has not been cleared orapproved by t Food and Drug Administration. Performed At: [facility] [address] [place], [place] [id number] miguelito [place] MD Ph:[phone] [facility][H] VITAMIN B1, WHOLE [id number] 11:00:01 Test Item Value Reference Range Interpretation Comments Vitamin B1 164.4 66.5-200.0 This test was d eveloped and its Level (test nmol/L performance code = characteristics determined by Vitamin B1 [facility]. It has not been Level) cleared orappro dontae by the Food and Drug Administration. Performed At: [facility] [address] [place], [place] [id number] miguelito [place] MD Ph:[phone] [facility]
[2021-08-24 20:10] LABS: Absolute Lymphocytes (CBC) 3.1 K/uL (0.7-4.9); Hematocrit 38.2 % (36.0-45.0); Lymphocytes % 40.1 % (15.3-44.8); MPV 8.6 fL (7.6-11.3); RBC Red Blood Cell Count 4.31 M/uL (3.86-4.86)
[2021-08-24 20:12] LABS: Protime INR 3.26
[2021-08-24 20:26] LABS: AST/SGOT 20 U/L (15-37); Albumin 3.3 g/dL (3.4-5.0); Alkaline Phosphatase 84 U/L (45-117); BUN Blood Urea Nitrogen 14 mg/dL (7-18); Bicarbonate 27 mmol/L (21-32); Glucose Level 188 mg/dL (74-106); Potassium 3.4 mmol/L (3.5-5.1); Protein, Total 7.4 g/dL (6.4-8.2); Sodium Level 138 mmol/L (136-145)
[2021-08-24 20:47] LABS: ALT/SGPT 39 U/L (12-78); Bilirubin Direct < 0.1 mg/dL (0-0.2); Bilirubin Total 0.2 mg/dL (0.2-1.0); Magnesium 1.6 mg/dL (1.8-2.4); NT PRO-BNP 148 pg/mL (<125)
--- NOTE | 2021-08-24 20:59 | RAD REPORT ---
EXAM DESCRIPTION: Emy Single View08/24/2021 8:46 pm CLINICAL HISTORY: Chest pain COMPARISON: May 2021 FINDINGS: The lungs appear clear of acute infiltrate. The heart is normal size. One of pacemaker le ads makes a loop in the heart. IMPRESSION: No acute abnormalities displayed
[2021-08-24] MEDS ORDERED: MORPHINE 4 MG/ML SYR ONE (21:07)
[2021-08-24] MEDS ORDERED: POTASSIUM CL SA 10 MEQ TAB PO ONE (21:08)
[2021-08-24] MEDS ORDERED: ONDANSETRON 4 MG/2 ML VIAL ONE (21:08)
[2021-08-24] MEDS ORDERED: Magnesium Sulfate 2gm IVPB 2 G/50 ML BAG IV ONE (21:08)
--- NOTE | 2021-08-24 22:50 | EDPHYS ---
Physician Documentation [facility] Name: Pat Bertrand Age: 56 yrs Sex: Female : 1965 Arrival Date: 08/24/2021 Time: 19:20 Bed 17 Private MD: ED Physician Lex Sesay HPI: 08/24 21:16 This 56 yrs old Female presents to ER via EMS with unknown complaint. pkl 21:16 The patient or guardian reports chest pain that is located primarily in the substernal pkl area. Onset: today, 4 hour(s) ago. The pain radiates to the left arm, left back. Associated signs and symptoms: The patient has no apparent associated signs or symptoms. The chest pain is described as a heaviness, a pressure. The patient has experienced similar episodes in the past, a few times. - Immunization history:: Adult Immunizations up to date, Client reports receiving the 2nd dose of the Covid vaccine. - Social history:: Smoking status: Patient denies any tobacco usage or history of. ROS: 21:16 Eyes: Negative for injury, pain, redness, and discharge, ENT: Negative for injury, pkl pain, and discharge, Neck: Negative for injury, pain, and swelling. 21:16 Cardiovascular: Positive for chest pain. 21:16 Respiratory: Negative for cough, shortness of breath. 21:16 Abdomen/GI: Negative for abdominal pain, nausea, vomiting, and diarrhea. 21:16 Back: Negative for acute changes. 21:16 : Negative for urinary symptoms. 21:16 MS/extremity: Negative for acute changes. 21:16 Skin: Negative for rash. 21:16 Neuro: Negative for altered mental status, loss of consciousness. Exam: 21:16 Head/Face: Normocephalic, atraumatic. Eyes: Pupils equal round and reactive to light, pkl extra-ocular motions intact. Lids and lashes normal. Conjunctiva and sclera are non-icteric and not injected. Cornea within normal limits. Periorbital areas with no swelling, redness, or edema. ENT: Nares patent. No nasal discharge, no septal abnormalities noted. Tympanic membranes are normal and external auditory canals are clear. Oropharynx with no redness, swelling, or masses, exudates, or evidence of obstruction, uvula midline. Mucous membranes moist. Neck: Trachea midline, no thyromegaly or masses palpated, and no cervical lymphadenopathy. Supple, full range of motion without nuchal rigidity, or vertebral point tenderness. No Meningismus. Chest/axilla: Normal chest wall appearance and motion. Nontender with no deformity. No lesions are appreciated. Cardiovascular: Regular rate and rhythm with a normal S1 and S2. No gallops, murmurs, or rubs. Normal PMI, no JVD. No pulse deficits. Respiratory: Lungs have equal breath sounds bilaterally, clear to auscultation and percussion. No rales, rhonchi or wheezes noted. No increased work of breathing, no retractions or nasal flaring. Abdomen/GI: Soft, non-tender, with normal bowel sounds. No distension or tympany. No guarding or rebound. No evidence of tenderness throughout. Back: No spinal tenderness. No costovertebral tenderness. Full range of motion. Skin: Warm, dry with normal turgor. Normal color with no rashes, no lesions, and no evidence of cellulitis. MS/ Extremity: Pulses equal, no cyanosis. Neurovascular intact. Full, normal range of motion. Vital Signs: 20:02 BP 141 / 92; Pulse 86; Resp 20; Pulse Ox 100% ; Pain 8/10; sf1 21:17 BP 138 / 97; Pulse 79; Resp 18; Pulse Ox 99% on R/A; sf1 MDM: 19:58 Patient medically screened. pkl 22:47 Data reviewed: vital signs, nurses notes, lab test result(s), EKG, radiologic studies, pkl plain films. ED course: Talked to Stas SNYDER ) For observation Dr. Bailey. 08/24 19:53 Order name: Basic Metabolic Panel; Complete Time: 20:50 08/24 19:53 Order name: CBC with Diff; Complete Time: 20:50 08/24 19:53 Order name: LFT's; Complete Time: 20:50 08/24 19:53 Order name: Magnesium; Complete Time: 20:50 08/24 19:53 Order name: NT PRO-BNP; Complete Time: 20:50 08/24 19:53 Order name: PT-INR; Complete Time: 20:50 08/24 19:53 Order name: Troponin HS; Complete Time: 20:50 08/24 19:53 Order name: XRAY Chest (1 view); Complete Time: 21:52 08/24 20:54 Order name: D-Dimer; Complete Time: 21:52 pkl 08/24 23:10 Order name: COVID-19 SARS RT PCR (Document "Date of Onset" if Symptomatic); Complete mw2 Time: 01:08/24 19:53 Order name: EKG; Complete Time: 19:54 08/24 19:53 Order name: Cardiac monitoring; Complete Time: 19:53 08/24 19:53 Order name: EKG - Nurse/Tech; Complete Time: 19:53 08/24 19:53 Order name: IV Saline Lock; Complete Time: 19:53 08/24 19:53 Order name: Labs collected and sent; Complete Time: 19:53 08/24 19:53 Order name: O2 Per Protocol; Complete Time: 19:53 08/24 19:53 Order name: O2 Sat Monitoring; Complete Time: 19:53 08/24 22:56 Order name: CONS Physician Consult EDMS Administered Medications: 21:16 Drug: morphine 4 mg Route: IVP; Site: left antecubital; sf1 21:16 Drug: Zofran (Ondansetron) 4 mg Route: IVP; Site: left antecubital; sf1 21:16 Drug: K-Dur (potassium chloride) 20 mEq Route: PO; sf1 21:16 Drug: Magnesium Sulfate 1 grams Route: IVPB; Infused Over: 1 hrs; Site: left sf1 antecubital; Disposition Summary: 08/24/21 22:49 Hospitalization Ordered Hospitalization Status: Observation pkl Provider: Ru Bailey pkkaitlynn Location: Telemetry/MedSurg (observation) pkl Condition: Stable pkl Problem: new pkl Symptoms: are unchanged pkl Bed/Room Type: Standard pkl Room Assignment: 220(08/25/21 00:35) mw Diagnosis - Chest pain pkl Forms: - Medication Reconciliation Form pkl - SBAR form pkl Signatures: Dispatcher [employer] EDIA Angella Myers RN RN Lex Sesay MD MD pkl Adalgisa Vasquez RN RN sf1 Corrections: (The following items were deleted from the chart) 08/25 00:35 08/24 22:49 pkl mw
--- NOTE | 2021-08-24 22:50 | ER ---
Nurse's Notes [facility] Name: Pat Bertrand Age: 56 yrs Sex: Female : 1965 Arrival Date: 08/24/2021 Time: 19:20 Bed 17 Private MD: Diagnosis: Chest pain Presentation: 08/24 20:02 Chief complaint: Patient states: chest pain. Coronavirus screen: Vaccine status: sf1 Patient reports receiving the 2nd dose of the covid vaccine. Ebola Screen: Patient negative for fever greater than or equal to 101.5 degrees Fahrenheit, and additional compatible Ebola Virus Disease symptoms Patient denies exposure to infectious person. Patient denies travel to an Ebola-affected area in the 21 days before illness onset. Initial Sepsis Screen: Does the patient meet any 2 criteria? No. Patient's initial sepsis screen is negative. Does the patient have a suspected source of infection? No. Patient's initial sepsis screen is negative. Risk Assessment: Do you want to hurt yourself or someone else? Patient reports no desire to harm self or others. Onset of symptoms was August 24, 2021 at 19:00. 20:02 Method Of Arrival: EMS sf1 20:02 Acuity: ROSAURA 3 sf1 Triage Assessment: 20:02 General: Appears in no apparent distress. uncomfortable, Behavior is cooperative, sf1 appropriate for age. Pain: Complains of pain in chest. - Immunization history:: Adult Immunizations up to date, Client reports receiving the 2nd dose of the Covid vaccine. - Social history:: Smoking status: Patient denies any tobacco usage or history of. Screenin/28 01:16 Abuse screen: Denies threats or abuse. Nutritional screening: No deficits noted. sf1 Tuberculosis screening: No symptoms or risk factors identified. Fall Risk None identified. Vital Signs: 08/24 20:02 BP 141 / 92; Pulse 86; Resp 20; Pulse Ox 100% ; Pain 8/10; sf1 21:17 BP 138 / 97; Pulse 79; Resp 18; Pulse Ox 99% on R/A; sf1 ED Course: 19:20 Patient arrived in ED. mw2 19:53 Adalgisa Vasquez RN is Primary Nurse. sf1 19:58 Lex Sesay MD is Attending Physician. pkl 20:02 Basic Metabolic Panel Sent. sf1 20:02 CBC with Diff Sent. sf1 20:02 LFT's Sent. sf1 20:02 Magnesium Sent. sf1 20:02 NT PRO-BNP Sent. sf1 20:02 PT-INR Sent. sf1 20:02 Troponin HS Sent. sf1 20:02 Arm band placed on left wrist. sf1 20:04 Triage completed. sf1 20:43 Magnesium Sent. sf1 20:43 NT PRO-BNP Sent. sf1 20:43 Troponin HS Sent. sf1 20:46 XRAY Chest (1 view) In Process Unspecified. EDMS 21:12 Notified ED physician of a critical lab result(s). D-Dimer 654. tw5 22:48 Ru Bailey is Hospitalizing Provider. pk 23:35 COVID-19 SARS RT PCR (Document "Date of Onset" if Symptomatic) Sent. [facility] 08/25 01:16 No provider procedures requiring assistance completed. Inserted saline lock: 20 gauge sf1 in left antecubital area, using aseptic technique. 01:16 Patient has correct armband on for positive identification. sf1 Administered Medications: 08/24 21:16 Drug: morphine 4 mg Route: IVP; Site: left antecubital; sf1 21:16 Drug: Zofran (Ondansetron) 4 mg Route: IVP; Site: left antecubital; sf1 21:16 Drug: K-Dur (potassium chloride) 20 mEq Route: PO; sf1 21:16 Drug: Magnesium Sulfate 1 grams Route: IVPB; Infused Over: 1 hrs; Site: left sf1 antecubital; Outcome: 22:49 Decision to Hospitalize by Provider. [facility] 08/25 01:11 Admitted to Med/surg accompanied by nurse, via wheelchair, room 220, with chart. vc1 Condition: good Instructed on the need for admit. 01:17 Patient left the ED. sf1 Signatures: Dispatcher [employer] EDMS Lex Sesay MD MD pkl Gustavo Miller mw2 Reina Kidd tw5 Misa Barone RN RN vc1 Adalgisa Vasquez RN RN sf1
[2021-08-24] MEDS ORDERED: ACETAMINOPHEN 500 MG TAB PO PRN (23:41)
[2021-08-24] MEDS ORDERED: ONDANSETRON 4 MG/2 ML VIAL IV PRN (23:41)
[2021-08-24] MEDS ORDERED: NITROGLYCERIN 0.4 MG/TAB SL PRN (23:41)
[2021-08-24] MEDS ORDERED: MORPHINE 2 MG/ML SYR IV PRN (23:41)
[2021-08-25 01:29] VITALS: O2SAT 99
--- NOTE | 2021-08-25 01:40 | P.HP ---
Certification for Inpatient Patient admitted to: Observation With expected LOS: <2 Midnights Patient will require the following post-hospital care: None Practitioner: I am a practitioner with admitting privileges, knowledge of patient current condition, hospital course, and medical plan of care. Services: Services provided to patient in accordance with Admission requirements found in Title 42 Section 412.3 of the Code of Federal Regulations Patient History Date of Service: 08/24/21 Primary Care Provider: Tonya Reason for admission: chest pain History of Present Illness: Ms. Bertrand is a 56 yo F with prothrombic gene mutation, MTHFR mutation, atrial fibrillation on warfarin, history of DVTs, CAD, CVD, HTN, DM, HLD who presents with chest pain and tightness beginning today after running errands. She says the pain is in her left chest, moving to her left arm and back. Right now she feels the pain as a dull pressure in her left shoulder blade. She says this is the worst chest pain she's had before. She also reports shortness of breath and nausea PT 37.9 INR 3.26 DD 654 K 3.4 GFR 59 Glu 188 Mg 1.6 BNP 148 Initial troponin wnl. CTPE pending. Allergies adhesive tape Allergy (Intermediate, Verified 06/12/19 10:28) Rash atorvastatin calcium [From Lipitor] Allergy (Intermediate, Verified 06/12/19 10:28) Itching/Hives/Rash codeine [Codeine] Allergy (Intermediate, Verified 06/12/19 10:28) Itching fluticasone propionate [From Advair Diskus] Allergy (Intermediate, Verified 06/12/19 10:28) Shortness of breath latex [Latex] Allergy (Intermediate, Verified 06/12/19 10:28) Rash lisinopril Allergy (Intermediate, Verified 06/12/19 10:28) Itching/Hives/Rash metoprolol Allergy (Intermediate, Verified 06/12/19 10:28) Itching/Hives/Rash Quinolones Allergy (Intermediate, Verified 06/12/19 10:28) Anaphylaxis salmeterol xinafoate [From Advair Diskus] Allergy (Intermediate, Verified 06/12/19 10:28) Shortness of breath Sulfa (Sulfonamide Antibiotics) [Sulfa(Sulfonamide Antibiotics)] Allergy (Intermediate, Verified 06/12/19 10:28) Itching/Hives/Rash amitriptyline Allergy (Verified 06/12/19 10:28) Shortness of breath ciprofloxacin [From Cipro] Allergy (Verified 06/12/19 10:28) Anaphylaxis epinephrine Allergy (Verified 06/12/19 10:28) Rash levofloxacin [From Levaquin] Allergy (Verified 06/12/19 10:28) Unknown lidocaine Allergy (Verified 06/12/19 10:28) Rash metoclopramide HCl [From Reglan] Allergy (Verified 06/12/19 10:28) Rash ofloxacin [From Floxin] Allergy (Verified 06/12/19 10:28) Anaphylaxis ranitidine HCl [From Zantac] Allergy (Verified 06/12/19 10:28) Rash tramadol HCl [From Ultram] Allergy (Verified 06/12/19 10:28) Rash venlafaxine Allergy (Verified 06/12/19 10:28) Rash Hydrocodone-Acetaminophen Allergy (Uncoded 06/12/19 10:28) Unknown Home Medications: Metformin HCl [Metformin ER Osmotic] 1,000 mg PO BID 07/08/12 Warfarin Sodium 4.5 mg PO DAILY 07/08/12 Albuterol Inhaler [Ventolin Inhaler*] 2 puff IH Q6H PRN 10/12/14 Cholecalciferol (Vitamin D3) [Vitamin D] 2,000 unit PO DAILY 10/12/14 Fluocinonide [Lidex] 15 gm TP DAILYPRN PRN 10/12/14 hydroCHLOROthiazide [Hydrodiuril*] 25 mg PO DAILY #30 tab 09/20/15 Fluticasone [Flonase 50mcg Nasal [place]] 2 sprays NS DAILY 06/12/19 Insulin 70/30 NPH/Reg Human [Novolin 70/30*] 30 unit SQ BID 06/12/19 Pravastatin [Pravachol*] 40 mg PO BEDTIME 06/12/19 Tramadol HCl/Acetaminophen [Ultracet Tablet] 1 each PO Q4H #30 tablet 06/15/19 clindamycin HCL [Cleocin HCl *] 150 mg PO Q8H #15 cap 06/15/19 - Past Medical/Surgical History Diabetic: Yes -: [place], high cholesterol -: CVA -: a-fib/pvc's -: kidney stones -: sleep apnea -: nystagmus -: hyperthyroid -: prothrombin gene mutation -: bronchitis/asthma -: IBS -: Chronic fatigue -: Fibromyalgia -: L hand surgery(trigger finger),hysterectomy, temitope, -: bladder suspension, lithrotripsy -: pacemaker implanted -: tonsilectomy x2 -: left breast cyst and fibroid removal - Family History Father -: Heart disease, Hypertension, Diabetes, Stroke, Blood disorders Mother -: Lung disease, Cancer Sister Notes: bleed into brainstem - Social History Smoking Status: Never smoker Alcohol use: No CD- Drugs: No Caffeine use: No Place of Residence: Home Review of Systems 10-point ROS is otherwise unremarkable General: Unremarkable Eyes: Unremarkable ENT: Unremarkable Respiratory: Shortness of Breath Cardiovascular: Chest Pain Gastrointestinal: Nausea Genitourinary: Unremarkable Musculoskeletal: Unremarkable Integumentary: Unremarkable Neurological: Unremarkable Lymphatics: Unremarkable Physical Examination - Vital Signs Blood Pressure: 138/97 Pulse: 79 Respirations: 18 - Physical Exam General: Alert, In no apparent distress HEENT: Atraumatic, PERRLA, Mucous membr. moist/pink, EOMI, Sclerae nonicteric Neck: Supple, 2+ carotid pulse no bruit, No LAD, Without JVD or thyroid abnormality Respiratory: Clear to auscultation bilaterally, Normal air movement Cardiovascular: No edema, Regular rate/rhythm, Normal S1 S2 Gastrointestinal: Normal bowel sounds, No tenderness Musculoskeletal: No tenderness Integumentary: No rashes Neurological: Normal speech, Normal strength at 5/5 x4 extr, Normal tone, Normal affect Lymphatics: No axilla or inguinal lymphadenopathy - Studies Laboratory Data (last 24 hrs) 08/24/21 19:57: PT 37.9 H, INR 3.26 08/24/21 19:57: WBC 7.70, Hgb 12.7, Hct 38.2, Plt Count 288 08/24/21 19:57: Sodium 138, Potassium 3.4 L, BUN 14, Creatinine 0.98, Glucose 188 H, Magnesium 1.6 L, Total Bilirubin 0.2, AST 20, ALT 39, Alkaline Phosphatase 84 Assessment and Plan - Problems (Diagnosis) (1) Chest pain Current Visit: Yes Status: Acute Qualifiers: Chest pain type: unspecified Qualified Code(s): R07.9 - Chest pain, unspecified (2) Prothrombin gene mutation Current Visit: Yes Status: Chronic (3) MTHFR mutation Current Visit: Yes Status: Chronic (4) Afib Current Visit: Yes Status: Chronic Qualifiers: Atrial fibrillation type: unspecified Qualified Code(s): I48.91 - Unspecified atrial fibrillation (5) CAD (coronary artery disease) Current Visit: Yes Status: Acute Qualifiers: Coronary Disease-Associated Artery/Lesion type: [place] artery [place] vs. transplanted heart: [place] heart Associated angina: unspecified whether angina present Qualified Code(s): I25.10 - Atherosclerotic heart disease of [place] coronary artery without angina pectoris (6) CVD (cerebrovascular disease) Current Visit: Yes Status: Chronic (7) T2DM (type 2 diabetes mellitus) Current Visit: Yes Status: Chronic Qualifiers: Diabetes mellitus rat exterminator insulin use: without rat exterminator use Diabetes mellitus complication status: with kidney complications Diabetes mellitus complication detail: with chronic kidney disease Chronic kidney disease stage: stage 3 (moderate) Chronic kidney disease stage 3 subtype: stage 3a (GFR 45- 59) Qualified Code(s): E11.22 - Type 2 diabetes mellitus with diabetic chronic kidney disease; N18.31 - Chronic kidney disease, stage 3a (8) HTN (hypertension) Current Visit: Yes Status: Chronic Qualifiers: Hypertension type: primary hypertension Qualified Code(s): I10 - Essential (primary) hypertension (9) HLD (hyperlipidemia) Current Visit: Yes Status: Chronic Qualifiers: Hyperlipidemia type: unspecified Qualified Code(s): E78.5 - Hyperlipidemia, unspecified (10) Fibromyalgia Current Visit: Yes Status: Chronic - Plan cardiology consulted trend troponins, repeat EKG daily aspirin, beta armando morphine and nitroglycerin as needed for pain lipid and thyroid levels pending A1c pending, sliding scale insulin CTPE pending reconcile and continue home medications CPAP at bedtime DVT ppx Discharge Plan: Home Plan to discharge in: 24 Hours - Advance Directives Does patient have a Living Will: No Does patient have a Durable POA for Healthcare: No - Code Status/Comfort Care Code Status Assessed: Yes (full code ) Critical Care: No Time Spent Managing Pts Care (In Minutes): 70
[2021-08-25 04:27] VITALS: BMI 45.2
[2021-08-25 05:46] LABS: Absolute Lymphocytes (CBC) 2.9 K/uL (0.7-4.9); Hematocrit 39.2 % (36.0-45.0); Lymphocytes % 38.4 % (15.3-44.8); MPV 8.4 fL (7.6-11.3)
[2021-08-25] MEDS ORDERED: METOPROLOL TAR 25 MG TAB PO SCH (06:00)
[2021-08-25 06:09] LABS: Albumin 3.4 g/dL (3.4-5.0); Bilirubin Total 0.3 mg/dL (0.2-1.0); Magnesium 1.9 mg/dL (1.8-2.4); Phosphorus 3.6 mg/dL (2.5-4.9); Potassium 3.8 mmol/L (3.5-5.1); Protein, Total 7.5 g/dL (6.4-8.2); Thyroid Stimulating Hormone 2.36 uIU/mL (0.360-3.740)
[2021-08-25] MEDS: INSULIN -REGULAR HUMAN 50 UNIT/0.5 ML ML SQ SCH ×3 (07:30→16:30)
[2021-08-25 08:23] VITALS: TEMP 97
[2021-08-25] MEDS ORDERED: POTASSIUM CL SA 10 MEQ TAB PO ONE (09:00)
[2021-08-25] MEDS ORDERED: ASPIRIN EC 81 MG TAB PO SCH (09:00)
[2021-08-25] MEDS ORDERED: ENOXAPARIN 40 MG/0.4 ML SQ SCH (09:00)
--- NOTE | 2021-08-25 15:20 | P.PN ---
Subjective Date of Service: 08/25/21 Primary Care Provider: Tonya Chief Complaint: chest pain No complaint. Troponin trended negative. He currently denies any chest pain. Physical Examination - Vital Signs Temperature: 97.0 F Blood Pressure: 96/53 Pulse: 67 Respirations: 16 Pulse Ox (%): 99 - Physical Exam General: Alert, In no apparent distress, Oriented x3 HEENT: Mucous membr. moist/pink Neck: JVD not distended Respiratory: Clear to auscultation bilaterally, Normal air movement Cardiovascular: No edema, Regular rate/rhythm, Normal S1 S2 Gastrointestinal: Normal bowel sounds, Soft and benign, Non-distended Musculoskeletal: No swelling Integumentary: No rashes, No cyanosis Neurological: Normal strength at 5/5 x4 extr - Studies Laboratory Data (last 24 hrs) 08/24/21 19:57: PT 37.9 H, INR 3.26 08/24/21 19:57: WBC 7.70, Hgb 12.7, Hct 38.2, Plt Count 288 08/24/21 19:57: Sodium 138, Potassium 3.4 L, BUN 14, Creatinine 0.98, Glucose 188 H, Magnesium 1.6 L, Total Bilirubin 0.2, AST 20, ALT 39, Alkaline Phosphatase 84 Assessment And Plan - Current Problems (Diagnosis) (1) Chest pain Current Visit: Yes Status: Acute Qualifiers: Chest pain type: unspecified Qualified Code(s): R07.9 - Chest pain, unspecified (2) CAD (coronary artery disease) Current Visit: Yes Status: Acute Qualifiers: Coronary Disease-Associated Artery/Lesion type: [place] artery [place] vs. transplanted heart: [place] heart Associated angina: unspecified whether angina present Qualified Code(s): I25.10 - Atherosclerotic heart disease of [place] coronary artery without angina pectoris (3) HLD (hyperlipidemia) Current Visit: Yes Status: Chronic Qualifiers: Hyperlipidemia type: unspecified Qualified Code(s): E78.5 - Hyperlipidemia, unspecified (4) HTN (hypertension) Current Visit: Yes Status: Chronic Qualifiers: Hypertension type: primary hypertension Qualified Code(s): I10 - Essential (primary) hypertension (5) MTHFR mutation Current Visit: Yes Status: Chronic (6) Prothrombin gene mutation Current Visit: Yes Status: Chronic (7) T2DM (type 2 diabetes mellitus) Current Visit: Yes Status: Chronic Qualifiers: Diabetes mellitus watermelon harvesting supervisor insulin use: without watermelon harvesting supervisor use Diabetes mellitus complication status: with kidney complications Diabetes mellitus complication detail: with chronic kidney disease Chronic kidney disease stage: stage 3 (moderate) Chronic kidney disease stage 3 subtype: stage 3a (GFR 45- 59) Qualified Code(s): E11.22 - Type 2 diabetes mellitus with diabetic chronic kidney disease; N18.31 - Chronic kidney disease, stage 3a - Plan Troponin trended negative. No chest pain. Resume home medications including coumadin. ASA, plavix. Patient has soft BP. Borderline bradycardic. No b-armando. Awaiting cardiology input.
--- NOTE | 2021-08-25 15:47 | RAD REPORT ---
EXAM DESCRIPTION: CT CHEST ANGIOGRAPHY WITH IV CONTRAST CLINICAL HISTORY: Chest pain COMPARISON: None Available TECHNIQUE: Multiple helical axial tomographic images were obtained of the chest following administra tion of intravenous contrast per angiographic protocol. MIP reformatted images were obtained. This exam was performed according to our departmental dose-optimization program, which includes autom ated exposure control, adjustment of the mA and/or kV according to patient size and/or use of iterati ve reconstruction technique. FINDINGS: Thyroid gland: unremarkable. Axilla: unremarkable. Pulmonary arteries: Pulmonary arteries appear patent. No evidence of pulmonary embolism. Aorta: No evidence of aortic dissection or aneurysm. Mediastinum: Dual-lead cardiac pacer noted. No adenopathy. Heart: Heart is normal in size. Lungs/airways: No consolidation. Airways are patent. Pleural spaces: No significant pleural effusion. No pneumothorax. Osseous: Unremarkable. Soft tissues: Unremarkable. Visualized abdomen: Unremarkable. IMPRESSION: No acute intrathoracic abnormality. Electronically signed by: Gage Mendieta MD 08/25/2021 3:00 AM WOOL WASHING MACHINE OPERATOR Due to temporary technical issues with the PACS/Fluency reporting system, reports are being signed by the in house radiologists without review as a courtesy to insure prompt reporting. The interpreting radiologist is fully responsible for the content of the report.
[2021-08-25] MEDS ORDERED: ALBUTEROL 2.5 MG/3 ML NEB SOL IH PRN (16:15)
[2021-08-25 17:00] VITALS: BP 118/74
--- NOTE | 2021-08-25 18:21 | P.DS ---
Admission Date: 08/24/21 Discharge Date: 08/25/21 Primary Care Provider: Tonya Disposition: ROUTINE DISCHARGE Discharge Condition: FAIR Reason for Admission: chest pain - Problems (1) Chest pain Status: Acute Qualifiers: Chest pain type: unspecified Qualified Code(s): R07.9 - Chest pain, unspecified (2) CAD (coronary artery disease) Status: Acute Qualifiers: Coronary Disease-Associated Artery/Lesion type: [place] artery [place] vs. transplanted heart: [place] heart Associated angina: unspecified whether angina present Qualified Code(s): I25.10 - Atherosclerotic heart disease of [place] coronary artery without angina pectoris (3) HLD (hyperlipidemia) Status: Chronic Qualifiers: Hyperlipidemia type: unspecified Qualified Code(s): E78.5 - Hyperlipidemia, unspecified (4) HTN (hypertension) Status: Chronic Qualifiers: Hypertension type: primary hypertension Qualified Code(s): I10 - Essential (primary) hypertension (5) MTHFR mutation Status: Chronic (6) Prothrombin gene mutation Status: Chronic (7) T2DM (type 2 diabetes mellitus) Status: Chronic Qualifiers: Diabetes mellitus penitentiary insulin use: without spool maker use Diabetes mellitus complication status: with kidney complications Diabetes mellitus complication detail: with chronic kidney disease Chronic kidney disease stage: stage 3 (moderate) Chronic kidney disease stage 3 subtype: stage 3a (GFR 45- 59) Qualified Code(s): E11.22 - Type 2 diabetes mellitus with diabetic chronic kidney disease; N18.31 - Chronic kidney disease, stage 3a Brief History of Present Illness: Ms. Bertrand is a 56 yo F with prothrombic gene mutation, MTHFR mutation, atrial fibrillation on warfarin, history of DVTs, CAD, CVD, HTN, DM, HLD who presents with chest pain and tightness beginning today after running errands. She reported left sided chest pain, moving to her left arm and back. She also r eports shortness of breath and nausea. Hospital Course: Patient observation on the medical floor. Troponin trended negative. Patient placed on aspirin, continued her home dose warfarin. Patient seen and evaluated by cardiology who recommended further work-up as an outpatient. ACS has been ruled out. Patient is deemed stable for discharge. Vital Signs/Physical Exam: Temp Pulse Resp BP Pulse Ox 97.0 F 77 16 118/74 99 08/25/21 16:00 08/25/21 16:00 08/25/21 16:00 08/25/21 16:00 08/25/21 16:00 General: Alert, In no apparent distress, Oriented x3 HEENT: Sclerae nonicteric Neck: JVD not distended Respiratory: Clear to auscultation bilaterally, Normal air movement Cardiovascular: No edema, Regular rate/rhythm, Normal S1 S2 Gastrointestinal: Soft and benign, Non-distended Musculoskeletal: No swelling Integumentary: No rashes, No erythema, No cyanosis Neurological: Normal strength at 5/5 x4 extr Laboratory Data at Discharge: WBC 7.60 K/uL (4.3-10.9) 08/25/21 05:07 Hgb 12.9 g/dL (12.0-15.0) 08/25/21 05:07 Hct 39.2 % (36.0-45.0) 08/25/21 05:07 Plt Count 299 K/uL (152-406) 08/25/21 05:07 PT 37.9 SECONDS (9.5-12.5) H 08/24/21 19:57 INR 3.26 08/24/21 19:57 APTT 46.2 SECONDS (24.3-36.9) H 08/25/21 05:07 Sodium 139 mmol/L (136-145) 08/25/21 05:07 Potassium 3.8 mmol/L (3.5-5.1) 08/25/21 05:07 BUN 13 mg/dL (7-18) 08/25/21 05:07 Creatinine 0.94 mg/dL (0.55-1.3) 08/25/21 05:07 Glucose 146 mg/dL (74-106) H 08/25/21 05:07 Phosphorus 3.6 mg/dL (2.5-4.9) 08/25/21 05:07 Magnesium 1.9 mg/dL (1.8-2.4) 08/25/21 05:07 Total Bilirubin 0.3 mg/dL (0.2-1.0) 08/25/21 05:07 AST 23 U/L (15-37) 08/25/21 05:07 ALT 41 U/L (12-78) 08/25/21 05:07 Alkaline Phosphatase 85 U/L (45-117) 08/25/21 05:07 Triglycerides 113 mg/dL (<150) 08/25/21 05:07 Cholesterol 209 mg/dL (<200) H 08/25/21 05:07 HDL Cholesterol 42 mg/dL (40-60) 08/25/21 05:07 Cholesterol/HDL Ratio 4.98 08/25/21 05:07 Home Medications: Metformin HCl [Metformin ER Osmotic] 1,000 mg PO BID 07/08/12 Albuterol Inhaler [Ventolin Inhaler*] 2 puff IH Q6H PRN 10/12/14 hydroCHLOROthiazide [Hydrodiuril*] 25 mg PO DAILY #30 tab 09/20/15 Aspirin [Low Dose Aspirin EC] 81 mg PO PRN 08/25/21 Cetirizine HCl [24Hour Allergy] 1 tab PO DAILY 08/25/21 Cholecalciferol (Vitamin D3) [Vitamin D3] 1 cap PO DAILY 08/25/21 Duloxetine [Cymbalta *] 3 cap PO DAILY 08/25/21 Vitamin B Complex [B Complex] 2 tab PO DAILY 08/25/21 Warfarin Sodium [Jantoven] 5 mg PO DAILY 08/25/21 Diet: ADA Activity: Ad ban Followup: Shola Brand MD [ACTIVE - CAN ADMIT] - 1 Week NONE,NONE [Primary Care Provider] -
[2021-08-26] MEDS ORDERED: WARFARIN SODIUM 5 MG TAB PO SCH (09:00)
[2021-08-26] MEDS ORDERED: VITAMIN D 1000 UNIT TAB PO SCH (09:00)
[2021-08-26] MEDS ORDERED: CETIRIZINE HCL 5 MG TABLET PO SCH (09:00)
[2021-08-26] MEDS ORDERED: DULOXETINE 20 MG CAP PO SCH (09:00)
--- NOTE | 2021-08-26 21:45 | CON ---
Date of Consultation: 08/25/2021 Reason For Consultation: Chest pain. History Of Present Illness: 56-year-old female, history of atrial fibrillation, DVT, coronary artery disease, hypertension, diabetes, hyperlipidemia, presented with chest pain, tightness feeling. No r adiation, not related after she was running some errands. Pain went to her left arm, however complet sherine resolved and since she has been in the hospital, she has been chest pain free and she is ambulati ng without any difficulties. Past Medical History: As outlined above in the HPI. Medications: Refer to reconciliation sheet for detailed list. Allergies: LONG LIST OF ALLERGIES WAS REVIEWED. Family History: No mature coronary artery disease with her sister; lung cancer on mother's side. Social History: Does not smoke or drink. Does not use any drugs. Review of Systems: All systems reviewed were negative except for mentioned in HPI. Physical Examination: Vital Signs: Reviewed. Head and Neck: Pupils are equal and reactive to light. Intact eye movements. No JVD. No cervical lymphadenopathy. Neck is supple. Thyroid is not enlarged. Lungs: Clear to auscultation bilaterally. No rhonchi, rales, or crackles. No accessory muscle use. Heart: Regular rate and rhythm. No extra sounds. Abdomen: Soft, nontender. Bowel sounds positive. No organomegaly. No masses or hernia. No rigidi ty or rebound. Extremities: No edema, clubbing, or cyanosis. Intact pulses. Skin: No rashes. Neurologic: Alert, awake, and oriented x3. No acute focal deficits appreciated. Investigations: Labs were reviewed. Assessment And Recommendations: 1.Chest pain. Cardiac enzymes are negative. EKG without acute specific abnormalities. She claimed having normal heart catheterization in 2010, despite the fact that she was told she had heart attack . At this point, she has been chest pain free. Negative troponins. The patient can be released and have further workup to be done as an outpatient. Plan for exercise nuclear stress test and an echo to be done as an outpatient. Start on baby aspirin and she was instructed to return back to the [facility] if she has any further chest pain. 2.Atrial fibrillation. The rate is controlled, her CHADS-VASc score is very high and requires antic oagulation Eliquis or Xarelto. Thank you for the consult. /AMBER Voice ID: [id number] Report ID: [id number]
== END 2021-08-25 20:00 | disposition home or self-care (01) ==
LOC: ER 19:01 → ERHOLD 22:55 → 2ND 08-25 00:40
PROVIDERS: ADMIT Internal Medicine; ATTEND Internal Medicine
DX: R07.9 Chest pain, unspecified (principal); I25.10 Atherosclerotic heart disease of native coronary artery without angina pectoris; I48.91 Unspecified atrial fibrillation; E11.22 Type 2 diabetes mellitus with diabetic chronic kidney disease; I12.9 Hypertensive chronic kidney disease with stage 1 through stage 4 chronic kidney disease, or unspecified chronic kidney disease; N18.31 Chronic kidney disease, stage 3a; E78.5 Hyperlipidemia, unspecified; D68.52 Prothrombin gene mutation; E72.12 Methylenetetrahydrofolate reductase deficiency; I67.9 Cerebrovascular disease, unspecified; M79.7 Fibromyalgia; E78.00 Pure hypercholesterolemia, unspecified; G47.30 Sleep apnea, unspecified; E05.90 Thyrotoxicosis, unspecified without thyrotoxic crisis or storm; I25.2 Old myocardial infarction; H55.00 Unspecified nystagmus; J45.909 Unspecified asthma, uncomplicated; K58.9 Irritable bowel syndrome, unspecified; R53.82 Chronic fatigue, unspecified; Z20.822 Contact with and (suspected) exposure to COVID-19; Z95.0 Presence of cardiac pacemaker; Z86.73 Personal history of transient ischemic attack (TIA), and cerebral infarction without residual deficits; Z86.718 Personal history of other venous thrombosis and embolism; Z87.442 Personal history of urinary calculi; Z79.01 Long term (current) use of anticoagulants; Z79.4 Long term (current) use of insulin; Z88.2 Allergy status to sulfonamides; Z88.3 Allergy status to other anti-infective agents; Z88.6 Allergy status to analgesic agent; Z88.8 Allergy status to other drugs, medicaments and biological substances; Z91.040 Latex allergy status; Z91.048 Other nonmedicinal substance allergy status; Z90.49 Acquired absence of other specified parts of digestive tract; Z90.710 Acquired absence of both cervix and uterus; Z82.3 Family history of stroke; Z82.49 Family history of ischemic heart disease and other diseases of the circulatory system; Z83.3 Family history of diabetes mellitus; Z83.2 Family history of diseases of the blood and blood-forming organs and certain disorders involving the immune mechanism; Z80.1 Family history of malignant neoplasm of trachea, bronchus and lung
CPT/HCPCS: 93005; 85025 ×2; 80048; 36415; 83735 ×2; 84100; 85610; 80061; 82947 ×3; 85379; 80076; 85730; 84443; 83036; 84484 ×3; 84439; 80053; 83880; 71275; 71045; 96375; 96374; 99285; U0003; Q9967; J1650; J2270; J3475; J2405 ×2; G0378

== ENCOUNTER → 2023-10-20 | Emergency (ER) | payer OTHER ==
[~2023-10-20] MED LIST: HYDROCODONE/APAP 10/325 TAB ONE; KETOROLAC 30 MG/ML INJ ONE; MORPHINE 2 MG/ML SYR ONE; MORPHINE 4 MG/ML SYR ONE; dexAMETHasone 10 MG/ML VIAL ONE
--- NOTE | 2023-10-20 16:34 | RAD REPORT ---
EXAM DESCRIPTION: RAD - Hip Left 2 View - 10/20/2023 4:27 pm CLINICAL HISTORY: PAIN COMPARISON: None available TECHNIQUE: Left hip, AP and frogleg views of the left hip. FINDINGS: There is no fracture or dislocation. No acute or destructive bony process seen. IMPRESSION: No acute findings of the left hip.
[2023-10-20 18:08] LABS: Sqamous Epithelial <5 /HPF (None Seen); Urine Bacteria <20 /HPF (<20); Urine Bilirubin NEGATIVE (Negative); Urine Blood Negative (Negative); Urine Clarity Turbid (Clear); Urine Color Yellow (Yellow); Urine Culture Reflex Order NOT NEEDED; Urine Glucose NEGATIVE (Negative); Urine Ketones NEGATIVE (Negative); Urine Microscopic Reflex YN ORDER UMIC; Urine Mucus Slight /HPF (None Seen); Urine Nitrite NEGATIVE (Negative); Urine Protein TRACE (Negative); Urine RBC <5 /HPF (None Seen); Urine Urobilinogen Normal (Normal); Urine WBC <5 /HPF (<5); Urine pH 5.5 (5.0-7.0)
--- NOTE | 2023-10-20 18:34 | ER ---
Nurse's Notes [facility] Name: Pat Bertrand Age: 58 yrs Sex: Female : 1965 Arrival Date: 10/20/2023 Time: 14:58 Bed 10 Private MD: Diagnosis: Sciatica, left side Presentation: 10/19 15:29 Chief complaint: Patient states: Pt c/o increased left hip pain and back pain after tl4 bending over "a couple days ago". Coronavirus screen: At this time, the client does not indicate any symptoms associated with coronavirus-19. Ebola Screen: No symptoms or risks identified at this time. Initial Sepsis Screen: Does the patient meet any 2 criteria? No. Patient's initial sepsis screen is negative. Does the patient have a suspected source of infection? No. Patient's initial sepsis screen is negative. Risk Assessment: Do you want to hurt yourself or someone else? Patient reports no desire to harm self or others. Onset of symptoms was October 17, 2023. 15:29 Method Of Arrival: Wheelchair tl4 15:29 Acuity: ROSAURA 4 tl4 Triage Assessment: 15:39 General: Appears uncomfortable, Behavior is calm, cooperative. Pain: Complains of pain tl4 in back and pelvis. EENT: No deficits noted. No signs and/or symptoms were reported regarding the EENT system. Neuro: Level of Consciousness is awake, alert, obeys commands, Oriented to person, place, time, situation. Historical: - Allergies: 15:30 Advair Diskus; tl4 15:30 Amitriptyline; tl4 15:30 Cipro; tl4 15:30 Codeine; tl4 15:30 Crestor; tl4 15:30 epi- lido combination; tl4 15:30 Latex; tl4 15:30 Levofloxacin; tl4 15:30 Lipitor; tl4 15:30 Lisinopril; tl4 15:30 Metoprolol Tartrate; tl4 15:30 Zantac; tl4 15:30 venlafaxine; tl4 15:30 Ultram; tl4 15:30 Sulfa (Sulfonamide Antibiotics); tl4 15:30 Reglan; tl4 15:30 Latex, Natural Rubber; tl4 - PMHx: 15:30 AFIB; Asthma; CFS; chronic bronchitis; COSA; CVA; Depression; Diabetes - NIDDM; garrett tl4 bar; Fibromyalgia; High Cholesterol; hyperparathyroid; Hypertension; ibs; Myocardial infarction; prothrombin gene mutation; PVC; vitamin D deficincy; - Immunization history:: Adult Immunizations unknown. - Social history:: Smoking status: Patient denies any tobacco usage or history of. Screenin:04 [facility] ED Fall Risk Assessment (Adult) History of falling in the last 3 months, hb including since admission No falls in past 3 months (0 pts) Confusion or Disorientation No (0 pts) Intoxicated or Sedated No (0 pts) Impaired Gait No (0 pts) Mobility Assist Device Used No (0 pt) Altered Elimination No (0 pt) Score/Fall Risk Level 0 - 2 = Low Risk Oriented to surroundings, Maintained a safe environment, Educated pt \\T\\ family on fall prevention, incl call for assistance when getting out of bed. Abuse screen: Denies threats or abuse. Denies injuries from another. Nutritional screening: No deficits noted. Tuberculosis screening: No symptoms or risk factors identified. Assessment: 16:04 General: Appears in no apparent distress. uncomfortable, Behavior is calm, cooperative. hb Pain: Pain currently is 8 out of 10 on a pain scale. Neuro: Level of Consciousness is awake, alert, obeys commands, Oriented to person, place, time, situation. Cardiovascular: Patient's skin is warm and dry. Respiratory: Respiratory effort is even, unlabored, Respiratory pattern is regular, symmetrical. GI: No signs and/or symptoms were reported involving the gastrointestinal system. : No signs and/or symptoms were reported regarding the genitourinary system. EENT: No signs and/or symptoms were reported regarding the EENT system. Derm: Skin is pink, warm \\T\\ dry. Musculoskeletal: Reports left hip pain. Vital Signs: 15:37 BP 123 / 93; Pulse 99; Resp 18; Temp 98.9(TE); Pulse Ox 100% ; Weight 106.14 kg; Height tl4 5 ft. 0 in. ; Pain 8/10; 18:53 BP 118 / 97; Pulse 82; Resp 18; Temp 98.3; Pulse Ox 100% on R/A; ph 15:37 Body Mass Index 45.70 (106.14 kg, 152.4 cm) tl4 15:37 Pain Scale: Adult tl4 ED Course: 15:02 Patient arrived in ED. ra3 15:26 Magda Lopez FNP-C is PHCP. kb 15:26 Flo Justice MD is Attending Physician. kb 15:30 Triage completed. tl4 15:47 Arm band placed on. tl4 16:04 Patient has correct armband on for positive identification. Provided Education on: hb medications, tests, result times. 16:29 Hip Left 2 View XRAY In Process Unspecified. EDMS 17:54 PHCP role handed off by Magda Lopez FNP-C cp 17:54 Flo Brantley PA is PHCP. cp 18:53 No provider procedures requiring assistance completed. Patient did not have IV access ph during this emergency room visit. Administered Medications: 16:03 Drug: Dexamethasone IM 10 mg IM once Route: IM; Site: left deltoid; hb 18:52 Follow up: Response: No adverse reaction ph 16:03 Drug: Ketorolac IM 30 mg IM once Route: IM; Site: right deltoid; hb 18:52 Follow up: Response: No adverse reaction ph 16:03 Drug: [place] PO 10 mg-325 mg 1 tabs PO once Route: PO; hb 18:52 Follow up: Response: No adverse reaction ph 18:52 Drug: morphine IM 6 mg IM once Route: IM; Site: right vastus lateralis; ph 18:52 Follow up: Response: No adverse reaction ph Medication: 16:04 VIS not applicable for this client. hb Outcome: 18:33 Discharge ordered by MD. cp 18:53 Discharged to home ambulatory, with friend, ph 18:53 Condition: good 18:53 Discharge instructions given to patient, Instructed on discharge instructions, follow up and referral plans. Demonstrated understanding of instructions, follow-up care, medications, Prescriptions given X 1, 18:54 Patient left the ED. ph Signatures: Dispatcher [employer] EDNH Magda Lopez FNP-C FNP-Prachi Ponce RN RN ph Flo Brantley PA PA cp Damari Parker RN RN Vadim Guan RN RN tl4 Narcisa Newberry ra3 Corrections: (The following items were deleted from the chart) 15:37 15:30 Allergies: HYDROCODONE; tl4 tl4
--- NOTE | 2023-10-20 18:34 | EDPHYS ---
Physician Documentation [facility] Name: Pat Bertrand Age: 58 yrs Sex: Female : 1965 Arrival Date: 10/20/2023 Time: 14:58 Bed 10 Private MD: RYLIE Physician Flo Justice HPI: 10/19 17:14 This 58 yrs old Female presents to ER via Wheelchair with complaints of Hip Pain, Back kb Pain. 17:14 Pt is a 58 year old female who presents for left hip and back pain that started after kb bending over to pick something up off the floor a few days ago. No tenderness to area. States the pain is deep and only with movement. Denies injury or trauma. States she takes antiinflammatories and muscle relaxers for her chronic back pain but that isn't helping this pain. Also takes prednisone daily and is on a taper to get off of it, now taking 2mg daily. Denies radiating pain, numbness, tingling, incontinence. Historical: - Allergies: 15:30 Advair Diskus; tl4 15:30 Amitriptyline; tl4 15:30 Cipro; tl4 15:30 Codeine; tl4 15:30 Crestor; tl4 15:30 epi- lido combination; tl4 15:30 Latex; tl4 15:30 Levofloxacin; tl4 15:30 Lipitor; tl4 15:30 Lisinopril; tl4 15:30 Metoprolol Tartrate; tl4 15:30 Zantac; tl4 15:30 venlafaxine; tl4 15:30 Ultram; tl4 15:30 Sulfa (Sulfonamide Antibiotics); tl4 15:30 Reglan; tl4 15:30 Latex, Natural Rubber; tl4 - PMHx: 15:30 AFIB; Asthma; CFS; chronic bronchitis; COSA; CVA; Depression; Diabetes - NIDDM; garrett tl4 bar; Fibromyalgia; High Cholesterol; hyperparathyroid; Hypertension; ibs; Myocardial infarction; prothrombin gene mutation; PVC; vitamin D deficincy; - Immunization history:: Adult Immunizations unknown. - Social history:: Smoking status: Patient denies any tobacco usage or history of. ROS: 17:16 Constitutional: As per HPI kb Exam: 17:16 Constitutional: This is a well developed, well nourished patient who is awake, alert, kb and in no acute distress. Head/Face: Normocephalic, atraumatic. ENT: Moist Mucous membranes Cardiovascular: Regular rate Respiratory: Respirations even and unlabored. No increased work of breathing. Talking in full sentences Abdomen/GI: Soft, non-tender. No distention Back: No spinal tenderness. No costovertebral tenderness. Full range of motion. Skin: Warm, dry with normal turgor. Normal color. MS/ Extremity: Pulses equal, no cyanosis. Neurovascular intact. Full, normal range of motion. Neuro: Awake and alert, GCS 15, oriented to person, place, time, and situation. Moves all extremities. Vital Signs: 15:37 BP 123 / 93; Pulse 99; Resp 18; Temp 98.9(TE); Pulse Ox 100% ; Weight 106.14 kg; Height tl4 5 ft. 0 in. ; Pain 8/10; 18:53 BP 118 / 97; Pulse 82; Resp 18; Temp 98.3; Pulse Ox 100% on R/A; ph 15:37 Body Mass Index 45.70 (106.14 kg, 152.4 cm) tl4 15:37 Pain Scale: Adult tl4 MDM: 15:26 Patient medically screened. kb 17:16 Differential diagnosis: arthritis, strain, fracture. Data reviewed: vital signs, nurses kb notes. 17:56 Transition of care: After a detail discussion of the patient's case, care is kb transferred to Flo WILLIAM 10/19 15:36 Order name: Urinalysis w/ reflexes; Complete Time: 18:26 kb 10/19 18:26 Interpretation: Normal except: [place] Turbid; UPROT TRACE; UESTR 75; HYAL 10-20. cp 10/19 15:36 Order name: Hip Left 2 View XRAY; Complete Time: 16:35 kb Administered Medications: 16:03 Drug: Dexamethasone IM 10 mg IM once Route: IM; Site: left deltoid; hb 18:52 Follow up: Response: No adverse reaction ph 16:03 Drug: Ketorolac IM 30 mg IM once Route: IM; Site: right deltoid; hb 18:52 Follow up: Response: No adverse reaction ph 16:03 Drug: [place] PO 10 mg-325 mg 1 tabs PO once Route: PO; hb 18:52 Follow up: Response: No adverse reaction ph 18:52 Drug: morphine IM 6 mg IM once Route: IM; Site: right vastus lateralis; ph 18:52 Follow up: Response: No adverse reaction ph Disposition Summary: 10/20/23 18:33 Discharge Ordered Notes: Location: Home cp Problem: new cp Symptoms: have improved cp Condition: Stable cp Diagnosis - Sciatica, left side cp Followup: cp - With: Private Physician - When: 2 - 3 days - Reason: Recheck today's complaints Discharge Instructions: - Discharge Summary Sheet cp - Sciatica cp - Back Exercises cp Forms: - Medication Reconciliation Form cp - Thank You Letter cp - Antibiotic Education cp - Prescription Opioid Use cp - Patient Portal Instructions cp - Leadership Thank You Letter cp Prescriptions: - Medrol (Christiano) 4 mg Oral Tablets, Dose Pack - take 1 tablet ORAL route as directed - follow package instructions; 1 packet; cp Refills: 0, Product Selection Permitted Signatures: Dispatcher [employer] Magda Zarco FNP-C FNP-Ckb Hall, Patricia, RN RN ph Flo Brantley PA PA cp Damari Parker RN RN Vadim Guan RN RN tl4 Corrections: (The following items were deleted from the chart) 15:37 15:30 Allergies: HYDROCODONE; tl4 tl4 17:16 17:14 Pt is a 58 year old female who presents for left hip and back pain that started kb after bending over to pick something up off the floor a few days ago. No tenderness to area. States the pain is deep and only with movement. Denies injury or trauma. States she takes antiinflammatories and muscle relaxers for her chronic back pain but that isn't helping this pain. Also takes prednisone daily and is on a taper to get off of it, now taking 2mg daily. kb 17:16 17:16 Constitutional: This is a well developed, well nourished patient who is awake, kb alert, and in no acute distress. Head/Face: Normocephalic, atraumatic. ENT: Moist Mucous membranes Cardiovascular: Regular rate Respiratory: Respirations even and unlabored. No increased work of breathing. Talking in full sentences Abdomen/GI: Soft, non-tender. No distention Skin: Warm, dry with normal turgor. Normal color. MS/ Extremity: Pulses equal, no cyanosis. Neurovascular intact. Full, normal range of motion. Neuro: Awake and alert, GCS 15, oriented to person, place, time, and situation. Moves all extremities. kb 18:35 18:33 Sciatica cp cp
[2023-10-20 19:30] VITALS: BP 118/97; TEMP 98.3; O2SAT 100
== END ==
LOC: ER 14:58
DX: M54.32 Sciatica, left side (principal); M54.9 Dorsalgia, unspecified
CPT/HCPCS: 81001; 73502; 96372; 99284; J1100; J2270

== ENCOUNTER 2024-03-20 16:36 | Inpatient (IN) | payer OTHER ==
[2024-03-20] MEDS ORDERED: NA CHLORIDE 0.9% 1,000 ML ONE ×2 (17:36→20:33)
[2024-03-20 17:48] LABS: Absolute Lymphocytes (CBC) 0.7 K/uL (0.7-4.9); Absolute Monocytes 0.9 K/uL (0.1-1.3); Absolute Neutrophil 5.4 K/uL (1.8-8.0); Basophils % 0.5 % (0-1.3); Eosinophils % 0.2 % (0-4.4); Hemoglobin 13.1 g/dL (12.0-15.0); Lymphocytes % 9.7 % (15.3-44.8); MCH 31.4 pg (27.0-35.0); MCHC 33.6 g/dL (32.0-36.0); MCV 93.5 fL (80-100); MPV 8.5 fL (7.6-11.3); Monocytes % 12.7 % (3.3-12.3); Neutrophils % 76.9 % (41.7-73.7); Nucleated Red Blood Cells % 0.3 % (0-0); Platelets 211 thou/uL (152-406); RBC Red Blood Cell Count 4.18 M/uL (3.86-4.86); Red Cell Distribution Width 12.5 % (12.1-15.2)
[2024-03-20 17:52] LABS: PT Prothrombin Time 23.1 SECONDS (9.4-12.5); PTT, Activated Partial Thromb 29.2 SECONDS (24.3-36.9); Protime INR 2.11
[2024-03-20 18:01] LABS: Albumin 2.7 g/dL (3.4-5.0); Albumin/Globulin Ratio 0.6 (1.1-1.8); Anion Gap 9.7 mEq/L (5.0-15.0); Bilirubin Total 0.6 mg/dL (0.2-1.0); Globulin 4.3 g/dL (2.3-3.5); Potassium 3.7 mEq/L (3.5-5.1)
--- NOTE | 2024-03-20 18:04 | RAD REPORT ---
EXAM DESCRIPTION: RAD - Chest Single View - 03/20/2024 5:57 pm CLINICAL HISTORY: Chest pain;SOB Chest pain. COMPARISON: <Comparisons> FINDINGS: Portable technique limits examination quality. The lungs are grossly clear. The heart is upper limit of normal in size. No displaced fractures.Dual lead pacer device. IMPRESSION: No acute intrathoracic process suspected.
[2024-03-20] MEDS ORDERED: ONDANSETRON 4 MG/2 ML VIAL ONE (18:18)
[2024-03-20 18:35] LABS: SARS-CoV-2 Antigen CONTROL BLUE LINE VIS/BG OK; SARS-CoV-2 Antigen Rapid Res Negative (Negative)
--- NOTE | 2024-03-20 19:47 | RAD REPORT ---
EXAM DESCRIPTION: CTAbdomen Pelvis W Contrast - 03/20/2024 7:39 pm CLINICAL HISTORY: Abdominal pain. ABD PAIN COMPARISON: <Comparisons> TECHNIQUE: CT imaging of the abdomen and pelvis was performed with 100 ml non-ionic IV contrast. All CT scans are performed using dose optimization technique as appropriate and may include automated exposure control or mA/KV adjustment according to patient size. FINDINGS: The lung bases are clear.Pacer wires. The liver, spleen, pancreas, adrenal glands and kidneys are within normal limits. Cholecystectomy. No bowel obstruction, free air, free fluid or abscess. Moderately severe colitis pattern. The appendi x is normal. No evidence of significant lymphadenopathy. Mild lower lumbar degenerate changes. IMPRESSION: Moderate pancolitis pattern.
[2024-03-20] MEDS ORDERED: PROMETHAZINE INJ 25 MG/ML AMP ONE (20:38)
--- NOTE | 2024-03-20 21:09 | ER ---
Nurse's Notes [facility] Name: Pat Bertrand Age: 59 yrs Sex: Female : 1965 Arrival Date: 03/20/2024 Time: 16:36 Bed 19 Private MD: Diagnosis: Pancolitis;Other acute kidney failure;Weakness Presentation: 03/20 16:39 Chief complaint: Patient states: she has been having right lower quadrant pain and a ap3 headache for 4 days. patient reports that her abdominal pain is currently a 10/10 on the pain scale and her headache is an 8/10 on the pain scale. patient also reports nausea and vomiting. Coronavirus screen: At this time, the client does not indicate any symptoms associated with coronavirus-19. Ebola Screen: No symptoms or risks identified at this time. Initial Sepsis Screen: Does the patient meet any 2 criteria? HR > 90 bpm. Does the patient have a suspected source of infection? No. Patient's initial sepsis screen is negative. Risk Assessment: Do you want to hurt yourself or someone else? Patient reports no desire to harm self or others. Onset of symptoms was March 16, 2024. 16:39 Method Of Arrival: EMS: [facility] ap3 16:39 Acuity: ROSAURA 3 ap3 Triage Assessment: 16:46 General: Appears uncomfortable, Behavior is calm, cooperative, appropriate for age. ap3 Pain: Complains of pain in abdomen and head Pain began gradually, 4 days ago. Neuro: Level of Consciousness is awake, alert, obeys commands, Oriented to person, place, time, situation. Neuro: Reports headache. Cardiovascular: Patient's skin is warm and dry. Respiratory: Airway is patent Respiratory effort is even, unlabored, Respiratory pattern is regular, symmetrical. GI: Reports lower abdominal pain, diarrhea, nausea, vomiting. Historical: - Allergies: 16:42 Advair Diskus; ap3 16:42 Amitriptyline; ap3 16:42 Cipro; ap3 16:42 Codeine; ap3 16:42 Crestor; ap3 16:42 epi- lido combination; ap3 16:42 Latex; ap3 16:42 Levofloxacin; ap3 16:42 Lipitor; ap3 16:42 Lisinopril; ap3 16:42 Metoprolol Tartrate; ap3 16:42 Reglan; ap3 16:42 Sulfa (Sulfonamide Antibiotics); ap3 16:42 Ultram; ap3 16:42 venlafaxine; ap3 16:42 Zantac; ap3 - PMHx: 16:42 AFIB; Asthma; CFS; chronic bronchitis; COSA; CVA; Depression; Diabetes - NIDDM; garrett ap3 bar; Fibromyalgia; High Cholesterol; hyperparathyroid; Hypertension; ibs; Myocardial infarction; prothrombin gene mutation; PVC; vitamin D deficincy; - Immunization history:: Client reports receiving the 2nd dose of the Covid vaccine. - Infectious Disease History:: Denies. - Social history:: Smoking status: Patient denies any tobacco usage or history of. Screenin:07 [facility] ED Fall Risk Assessment (Adult) History of falling in the last 3 months, me1 including since admission No falls in past 3 months (0 pts) Confusion or Disorientation No (0 pts) Intoxicated or Sedated No (0 pts) Impaired Gait No (0 pts) Mobility Assist Device Used No (0 pt) Altered Elimination No (0 pt) Score/Fall Risk Level 0 - 2 = Low Risk Maintained a safe environment, Provided non-skid footwear, Hourly rounding (assess needs \T\ fall precautionary measures) done. Abuse screen: Denies threats or abuse. Nutritional screening: No deficits noted. Tuberculosis screening: No symptoms or risk factors identified. Assessment: 18:05 General: Appears uncomfortable, obese, well groomed, well developed, well nourished, me1 Behavior is calm, cooperative, appropriate for age, Reports she has been having right lower quadrant pain and a headache for 4 days. patient reports that her abdominal pain is currently a 10/10 on the pain scale and her headache is an 8/10 on the pain scale. patient also reports nausea and vomiting. Reports being incontinent of urine and diarrhea for several days. 18:07 Pain: Complains of pain in right lower quadrant Pain does not radiate. Pain currently me1 is 10 out of 10 on a pain scale. Quality of pain is described as crampy, sharp, Pain began gradually, 4 days ago Is continuous. Neuro: Level of Consciousness is awake, alert, obeys commands, Oriented to person, place, time, situation, Appropriate for age. Cardiovascular: Patient's skin is warm and dry. Respiratory: Airway is patent Trachea midline Respiratory effort is even, unlabored, Respiratory pattern is regular, symmetrical. GI: Reports lower abdominal pain, diarrhea, nausea, vomiting, since 4 days ago. : Reports incontinence. EENT: No signs and/or symptoms were reported regarding the EENT system. Derm: Skin is intact, is healthy with good turgor, Skin is pink, warm \T\ dry. Musculoskeletal: No signs and/or symptoms reported regarding the musculoskeletal system. Vital Signs: 16:39 BP 120 / 83; Pulse 99; Resp 17; Temp 98.8(O); Pulse Ox 99% on R/A; Weight 105.69 kg; ap3 Height 5 ft. 0 in. ; Pain 10/10; 17:00 BP 113 / 79; Pulse 96; Resp 16; Pulse Ox 100% on R/A; me1 18:00 BP 114 / 69; Pulse 98; Resp 16; Pulse Ox 99% on R/A; me1 19:00 BP 116 / 78; Pulse 101; Resp 16; Pulse Ox 98% on R/A; me1 20:00 BP 123 / 70; Pulse 94; Resp 15; Pulse Ox 99% on R/A; me1 20:45 BP 124 / 69; Pulse 94; Resp 16; Pulse Ox 100% on R/A; me1 21:51 BP 131 / 78; Pulse 89; Resp 15; Pulse Ox 99% on R/A; me1 22:15 BP 110 / 69; Pulse 86; Resp 16; Pulse Ox 99% on R/A; me1 22:45 BP 111 / 62; Pulse 88; Resp 16; Temp 98.4; Pulse Ox 99% on R/A; me1 16:39 Body Mass Index 45.50 (105.69 kg, 152.4 cm) ap3 16:39 Pain Scale: Adult ap3 ED Course: 16:39 Patient arrived in ED. ap3 16:39 Adri Quevedo PA-C is PHCP. sb4 16:39 Calos Wild MD is Attending Physician. sb4 16:41 Triage completed. ap3 17:08 Kamila Mirza, YURY is Primary Nurse. me1 17:32 Initial lab(s) drawn, by ma, sent to lab. First set of blood cultures drawn by ma. me1 17:35 Inserted saline lock: 22 gauge in left antecubital area, using aseptic technique. me1 17:36 Blood Culture Adult (2) Sent. me1 17:36 CBC with Diff Sent. me1 17:36 CMP Sent. me1 17:36 Lactate w/ 2H reflex if indic. Sent. me1 17:36 Protime (+inr) Sent. me1 17:36 Ptt, Activated Sent. me1 17:36 Lipase Sent. me1 17:45 Second set of blood cultures drawn by me. me1 17:59 Chest Single View XRAY In Process Unspecified. EDMS 18:07 No provider procedures requiring assistance completed. me1 18:07 Patient has correct armband on for positive identification. Bed in low position. Call me1 light in reach. Side rails up X2. Provided Education on: POC. Verbalized understanding. . Client placed on continuous cardiac and pulse oximetry monitoring. NIBP monitoring applied. Pulse ox on. NIBP on. 18:35 Arm band placed on Patient placed in an exam room. me1 19:27 EKG done, by ED staff. af3 19:40 CT Abd/Pelvis - IV Contrast Only In Process Unspecified. EDMS 21:07 Javier Blackmon MD is Hospitalizing Provider. sb4 21:50 CDIFF Sent. me1 21:50 Stool Culture Sent. me1 21:50 Rotavirus Antigen Sent. me1 21:50 Ova And Parasites Sent. me1 21:50 Fecal Leukocyte Stain Sent. me1 21:50 Urinalysis w/ reflexes Sent. me1 21:50 Urine collected: clean catch specimen, tea colored. me1 23:08 Patient admitted, IV remains in place. me1 Administered Medications: 17:40 Drug: NS 0.9% IV 1000 ml IV at 1 bolus Per protocol; 1000 mL bolus Route: IV; Rate: 1 me1 bolus; Site: left antecubital; 20:41 Follow up: Response: No adverse reaction; IV Status: Completed infusion; IV Intake: me1 1000ml 18:24 Drug: Ondansetron IVP 4 mg IVP once; over 2 minutes Route: IVP; Site: left antecubital; me1 18:26 Follow up: Response: No adverse reaction me1 20:41 Drug: NS 0.9% IV 1000 ml IV at 1 bolus Per protocol; 1000 mL bolus Route: IV; Rate: 1 me1 bolus; Site: left antecubital; 21:59 Follow up: Response: No adverse reaction; IV Status: Completed infusion; IV Intake: me1 1000ml 20:41 Drug: Promethazine IVP 12.5 mg IVP once Route: IVP; Site: left antecubital; me1 21:34 Follow up: Response: No adverse reaction; Nausea is decreased me1 21:59 Drug: Piperacillin-Tazobactam IVPB 3.375 grams IVPB once over 60 mins; (mix in NS 100 me1 mL) Route: IVPB; Infused Over: 60 mins; Site: left antecubital; 22:29 Follow up: Response: No adverse reaction; IV Status: Completed infusion; IV Intake: me1 100ml 21:59 Drug: fentaNYL (PF) IVP 25 mcg IVP once Route: IVP; Site: left antecubital; me1 22:34 Follow up: Response: No adverse reaction; Pain is decreased me1 Medication: 18:07 VIS not applicable for this client. me1 Intake: 20:41 IV: 1000ml; Total: 1000ml. me1 21:59 IV: 1000ml; Total: 2000ml. me1 22:29 IV: 100ml; Total: 2100ml. me1 Outcome: 21:08 Decision to Hospitalize by Provider. sb4 23:08 Admitted to Med/surg accompanied by tech, via stretcher, room 203, with chart, Report me1 called to faxed, receipt confirmed with Natalia 23:11 Condition: stable me1 23:11 Instructed on the need for admit, 23:12 Patient left the ED. me1 Signatures: Dispatcher [employer] EDUT Siria Argueta RN RN ap3 Adri Quevedo, PA-C PA-C sb4 Kamila Mirza RN RN me1 Salina Nguyen af3 Corrections: (The following items were deleted from the chart) 18:07 16:39 Chief complaint: Patient states: she has been having right lower quadrant pain me1 and a headache for 4 days. patient reports that her abdominal pain is currently a 10/10 on the pain scale and her headache is an 8/10 on the pain scale. patient also reports nausea and vomiting. ap3 18:09 18:05 General: Appears uncomfortable, obese, well groomed, well developed, well me1 nourished, Behavior is calm, cooperative, appropriate for age, Reports me1
--- NOTE | 2024-03-20 21:09 | EDPHYS ---
Physician Documentation [facility] Name: Pat Bertrand Age: 59 yrs Sex: Female : 1965 Arrival Date: 03/20/2024 Time: 16:36 Bed 19 Private MD: ED Physician Calos Wild HPI: 03/20 18:54 This 59 yrs old Female presents to ER via EMS with complaints of Abdominal Pain. sb4 18:54 The patient presents with abdominal pain that is diffuse. Onset: The symptoms/episode sb4 began/occurred 4 day(s) ago. The symptoms do not radiate. Associated signs and symptoms: Pertinent positives: nausea, vomiting, and diarrhea, fever. Associated signs and symptoms:. The patient has not experienced similar symptoms in the past. The patient has not recently seen a physician. Historical: - Allergies: 16:42 Advair Diskus; ap3 16:42 Amitriptyline; ap3 16:42 Cipro; ap3 16:42 Codeine; ap3 16:42 Crestor; ap3 16:42 epi- lido combination; ap3 16:42 Latex; ap3 16:42 Levofloxacin; ap3 16:42 Lipitor; ap3 16:42 Lisinopril; ap3 16:42 Metoprolol Tartrate; ap3 16:42 Reglan; ap3 16:42 Sulfa (Sulfonamide Antibiotics); ap3 16:42 Ultram; ap3 16:42 venlafaxine; ap3 16:42 Zantac; ap3 - PMHx: 16:42 AFIB; Asthma; CFS; chronic bronchitis; COSA; CVA; Depression; Diabetes - NIDDM; garrett ap3 bar; Fibromyalgia; High Cholesterol; hyperparathyroid; Hypertension; ibs; Myocardial infarction; prothrombin gene mutation; PVC; vitamin D deficincy; - Immunization history:: Client reports receiving the 2nd dose of the Covid vaccine. - Infectious Disease History:: Denies. - Social history:: Smoking status: Patient denies any tobacco usage or history of. ROS: 18:54 Cardiovascular: Negative for chest pain, palpitations, and edema, Respiratory: Negative sb4 for shortness of breath, cough, wheezing, and pleuritic chest pain, 18:54 Constitutional: Positive for fever, malaise, poor PO intake, 18:54 Abdomen/GI: Positive for abdominal pain, nausea, vomiting, and diarrhea, 18:54 Neuro: Positive for weakness, 18:54 All other systems are negative, Exam: 18:55 Head/Face: Normocephalic, atraumatic. Eyes: Extra-ocular motions intact. Periorbital sb4 areas with no swelling, redness, or edema. ENT: Mucous membranes moist. Cardiovascular: Regular rate and rhythm with a normal S1 and S2. Respiratory: Lungs have equal breath sounds bilaterally, clear to auscultation and percussion. No rales, rhonchi or wheezes noted. No increased work of breathing, no retractions or nasal flaring. Skin: Warm, dry with normal turgor. Normal color with no rashes, no lesions, and no evidence of cellulitis. 18:55 Constitutional: The patient appears alert, awake, obviously ill, pale, 18:55 Abdomen/GI: Inspection: distension, that is mild, Bowel sounds: normal, Palpation: soft, mild abdominal tenderness, in all quadrants, Vital Signs: 16:39 BP 120 / 83; Pulse 99; Resp 17; Temp 98.8(O); Pulse Ox 99% on R/A; Weight 105.69 kg; ap3 Height 5 ft. 0 in. ; Pain 10/10; 17:00 BP 113 / 79; Pulse 96; Resp 16; Pulse Ox 100% on R/A; me1 18:00 BP 114 / 69; Pulse 98; Resp 16; Pulse Ox 99% on R/A; me1 19:00 BP 116 / 78; Pulse 101; Resp 16; Pulse Ox 98% on R/A; me1 20:00 BP 123 / 70; Pulse 94; Resp 15; Pulse Ox 99% on R/A; me1 20:45 BP 124 / 69; Pulse 94; Resp 16; Pulse Ox 100% on R/A; me1 21:51 BP 131 / 78; Pulse 89; Resp 15; Pulse Ox 99% on R/A; me1 22:15 BP 110 / 69; Pulse 86; Resp 16; Pulse Ox 99% on R/A; me1 22:45 BP 111 / 62; Pulse 88; Resp 16; Temp 98.4; Pulse Ox 99% on R/A; me1 16:39 Body Mass Index 45.50 (105.69 kg, 152.4 cm) ap3 16:39 Pain Scale: Adult ap3 MDM: 16:40 Patient medically screened. sb4 21:06 Data reviewed: vital signs, nurses notes, lab test result(s), radiologic studies, and sb4 as a result, I will admit patient. Counseling: I had a detailed discussion with the patient and/or guardian regarding the historical points, exam findings, and any diagnostic results supporting the discharge/admit diagnosis, lab results, radiology results, the need for further work-up and treatment in the hospital. 03/20 16:51 Order name: Blood Culture Adult (2) sb4 03/20 16:51 Order name: CBC with Diff; Complete Time: 17:48 sb4 03/20 16:51 Order name: CMP; Complete Time: 18:02 sb4 03/20 16:51 Order name: Lactate w/ 2H reflex if indic.; Complete Time: 18:01 sb4 03/20 16:51 Order name: Protime (+inr); Complete Time: 17:53 sb4 03/20 16:51 Order name: Ptt, Activated; Complete Time: 17:53 sb4 03/20 16:51 Order name: Urinalysis w/ reflexes; Complete Time: 22:42 sb4 03/20 16:51 Order name: Lipase; Complete Time: 18:02 sb4 03/20 17:49 Order name: SARS RAPID; Complete Time: 18:40 sb4 03/20 17:49 Order name: Flu; Complete Time: 18:42 sb4 03/20 21:09 Order name: CDIFF; Complete Time: 22:42 sb4 03/20 21:09 Order name: Fecal Leukocyte Stain sb4 03/20 21:09 Order name: Ova And Parasites sb4 03/20 21:09 Order name: Rotavirus Antigen; Complete Time: 22:23 sb4 03/20 21:09 Order name: Stool Culture sb4 03/20 22:12 Order name: Urinalysis w/ reflexes EDMS 03/20 22:12 Order name: CBC with Automated Diff EDMS 03/20 22:12 Order name: CBC with Automated Diff EDMS 03/20 22:12 Order name: Comprehensive Metabolic Panel EDMS 03/20 22:12 Order name: Comprehensive Metabolic Panel EDMS 03/20 16:51 Order name: Chest Single View XRAY; Complete Time: 18:05 sb4 03/20 19:09 Order name: CT Abd/Pelvis - IV Contrast Only; Complete Time: 19:48 sb4 03/20 16:51 Order name: Accucheck; Complete Time: 20:44 sb4 03/20 16:51 Order name: Cardiac monitoring; Complete Time: 20:44 sb4 03/20 16:51 Order name: EKG - Nurse/Tech; Complete Time: 19:27 sb4 03/20 16:51 Order name: IV Saline Lock - Large Bore; Complete Time: 17:36 sb4 03/20 16:51 Order name: Labs collected and sent; Complete Time: 17:36 sb4 03/20 16:51 Order name: O2 Per Protocol; Complete Time: 17:36 sb4 03/20 16:51 Order name: O2 Sat Monitoring; Complete Time: 17:36 sb4 03/20 16:51 Order name: Vital Signs; Complete Time: 17:36 sb4 EC:12 Rate is 99 beats/min. Rhythm is regular, Sinus Rhythm with PACs. Left axis deviation sb4 noted. VA interval is normal at 140 msec. QRS interval is normal at 88 msec. QT interval is normal at 344 msec. No Q waves. T waves are Normal. No ST changes noted. Clinical impression: No evidence of ischemia. Interpreted by me. Reviewed by me. Administered Medications: 17:40 Drug: NS 0.9% IV 1000 ml IV at 1 bolus Per protocol; 1000 mL bolus Route: IV; Rate: 1 me1 bolus; Site: left antecubital; 20:41 Follow up: Response: No adverse reaction; IV Status: Completed infusion; IV Intake: me1 1000ml 18:24 Drug: Ondansetron IVP 4 mg IVP once; over 2 minutes Route: IVP; Site: left antecubital; in1 18:26 Follow up: Response: No adverse reaction me1 20:41 Drug: NS 0.9% IV 1000 ml IV at 1 bolus Per protocol; 1000 mL bolus Route: IV; Rate: 1 me1 bolus; Site: left antecubital; 21:59 Follow up: Response: No adverse reaction; IV Status: Completed infusion; IV Intake: me1 1000ml 20:41 Drug: Promethazine IVP 12.5 mg IVP once Route: IVP; Site: left antecubital; me1 21:34 Follow up: Response: No adverse reaction; Nausea is decreased me1 21:59 Drug: Piperacillin-Tazobactam IVPB 3.375 grams IVPB once over 60 mins; (mix in NS 100 me1 mL) Route: IVPB; Infused Over: 60 mins; Site: left antecubital; 22:29 Follow up: Response: No adverse reaction; IV Status: Completed infusion; IV Intake: me1 100ml 21:59 Drug: fentaNYL (PF) IVP 25 mcg IVP once Route: IVP; Site: left antecubital; me1 22:34 Follow up: Response: No adverse reaction; Pain is decreased me1 Disposition Summary: 03/20/24 21:08 Hospitalization Ordered Notes: Hospitalization Status: Inpatient Admission sb4 Provider: Javier Blackmon sb4 Location: Telemetry/[facility] (Inpatient) sb4 Condition: Fair sb4 Problem: new sb4 Symptoms: are unchanged sb4 Bed/Room Type: Standard sb4 Room Assignment: 203(03/20/24 22:23) sp Diagnosis - Pancolitis sb4 - Other acute kidney failure sb4 - Weakness sb4 Forms: - Medication Reconciliation Form sb4 - SBAR form sb4 - Leadership Thank You Letter sb4 Addendum: 03/22/2024 19:47 Co-signature as Attending Physician, Calos Wild MD I reviewed the patient's care r t provided by the Advanced Practice Provider and agree with the diagnosis and treatment plan. Signatures: Dispatcher [employer] EDMS Aleksandra Sapp Amanda, RN RN ap3 Adri Quevedo, PA-C PA-C sb4 Calos Wild MD MD rt Kamila Mirza RN RN me1 Corrections: (The following items were deleted from the chart) 03/20 16:51 16:51 BLOOD CULTURE*+BA.LAB.BRZ ordered. EDMS EDMS 16:51 16:51 CBC+H.LAB.BRZ ordered. EDMS EDMS 16:51 16:51 COMPREHENSIVE METABOLIC PANEL+C.LAB.BRZ ordered. EDMS EDMS 16:51 16:51 LACTATE+C.LAB.BRZ ordered. EDMS EDMS 16:51 16:51 PROTIME (+INR)+COAG.LAB.BRZ ordered. EDMS EDMS 16:51 16:51 PTT, ACTIVATED+COAG.LAB.BRZ ordered. EDMS EDMS 16:51 16:51 Urinalysis+U.LAB.BRZ ordered. EDMS EDMS 16:51 16:51 LIPASE+C.LAB.BRZ ordered. EDMS EDMS 16:51 16:51 Chest Single View+RAD.RAD.BRZ ordered. EDMS EDMS 21: 21:09 C.difficile GDH Ag \T\ Toxin AB+LAB.BRZ ordered. EDMS EDMS 21: 21:09 Fecal Leukocyte Stain+BA.LAB.BRZ ordered. EDMS EDMS 21: 21:09 Ova and Parasites+MR.LAB.BRZ ordered. EDMS EDMS 21:09 21:09 Rotavirus Antigen+BA.LAB.BRZ ordered. EDMS EDMS 21:09 21:09 Stool Culture+BA.LAB.BRZ ordered. EDMS EDMS 22:23 21:08 sb4 sp
[2024-03-20] MEDS ORDERED: FENTANYL CITR 100 MCG/2 ML ONE (21:46)
[2024-03-20] MEDS ORDERED: NA CHLORIDE 0.9% 100 ML ONE (21:47)
[2024-03-20] MEDS ORDERED: PIPERACIL/TAZO 3.375 GM VIAL IV ONE (21:47)
[2024-03-20] MEDS ORDERED: ACETAMINOPHEN 325 MG TABLET PO PRN (22:07)
[2024-03-20] MEDS ORDERED: HYDROCODONE/APAP 5/325 MG TAB PO PRN (22:11)
--- NOTE | 2024-03-20 22:15 | P.HP ---
Certification for Inpatient Patient admitted to: Inpatient With expected LOS: >2 Midnights Practitioner: I am a practitioner with admitting privileges, knowledge of patient current condition, hospital course, and medical plan of care. Services: Services provided to patient in accordance with Admission requirements found in Title 42 Section 412.3 of the Code of Federal Regulations Patient History Date of Service: 03/20/24 Reason for admission: abdominal pain History of Present Illness: 59 yrs old Female with past medical history of atrial fibrillation, asthma, chronic bronchitis, sleep apnea, history of CVA, depression, diabetes, fibromyalgia, hyperlipidemia, hypoparathyroidism, hypertension, CAD, prothrombin gene mutation, vitamin D deficiency who was brought to ER with abdominal discomfort. The patient presents with abdominal pain that is diffuse. Started 4 days ago, is diffuse, no radiation, nausea vomiting diarrhea present. Subjective fever present. Patient denies any chest pain shortness of breath Patient was assessed in the ER and was found to have pancolitis in CT and was admitted for further management Allergies adhesive tape Allergy (Intermediate, Verified 06/12/19 10:28) Rash atorvastatin calcium [From Lipitor] Allergy (Intermediate, Verified 06/12/19 10:28) Itching/Hives/Rash codeine [Codeine] Allergy (Intermediate, Verified 06/12/19 10:28) Itching fluticasone propionate [From Advair Diskus] Allergy (Intermediate, Verified 06/12/19 10:28) Shortness of breath latex [Latex] Allergy (Intermediate, Verified 06/12/19 10:28) Rash lisinopril Allergy (Intermediate, Verified 06/12/19 10:28) Itching/Hives/Rash metoprolol Allergy (Intermediate, Verified 06/12/19 10:28) Itching/Hives/Rash Quinolones Allergy (Intermediate, Verified 06/12/19 10:28) Anaphylaxis salmeterol xinafoate [From Advair Diskus] Allergy (Intermediate, Verified 06/12/19 10:28) Shortness of breath Sulfa (Sulfonamide Antibiotics) [Sulfa(Sulfonamide Antibiotics)] Allergy (Intermediate, Verified 06/12/19 10:28) Itching/Hives/Rash amitriptyline Allergy (Verified 06/12/19 10:28) Shortness of breath ciprofloxacin [From Cipro] Allergy (Verified 06/12/19 10:28) Anaphylaxis epinephrine Allergy (Verified 06/12/19 10:28) Rash levofloxacin [From Levaquin] Allergy (Verified 06/12/19 10:28) Unknown lidocaine Allergy (Verified 06/12/19 10:28) Rash metoclopramide HCl [From Reglan] Allergy (Verified 06/12/19 10:28) Rash ofloxacin [From Floxin] Allergy (Verified 06/12/19 10:28) Anaphylaxis ranitidine HCl [From Zantac] Allergy (Verified 06/12/19 10:28) Rash tramadol HCl [From Ultram] Allergy (Verified 06/12/19 10:28) Rash venlafaxine Allergy (Verified 06/12/19 10:28) Rash Home medications list reviewed: Yes Home Medications: Metformin HCl [Metformin ER Osmotic] 1,000 mg PO BID 07/08/12 Albuterol Inhaler [Ventolin Inhaler*] 2 puff IH Q6H PRN 10/12/14 hydroCHLOROthiazide [Hydrodiuril*] 25 mg PO DAILY #30 tab 09/20/15 Aspirin [Low Dose Aspirin EC] 81 mg PO PRN 08/25/21 Cetirizine HCl [24Hour Allergy] 1 tab PO DAILY 08/25/21 Cholecalciferol (Vitamin D3) [Vitamin D3] 1 cap PO DAILY 08/25/21 Duloxetine [Cymbalta *] 3 cap PO DAILY 08/25/21 Vitamin B Complex [B Complex] 2 tab PO DAILY 08/25/21 Warfarin Sodium [Jantoven] 5 mg PO DAILY 08/25/21 - Past Medical/Surgical History Diabetic: Yes Past Medical History: Reviewed- Non-Contributory -: AL, high cholesterol -: CVA -: a-fib/pvc's -: kidney stones -: sleep apnea -: nystagmus -: hyperthyroid -: prothrombin gene mutation -: bronchitis/asthma -: IBS -: Chronic fatigue -: Fibromyalgia Past Surgical History: Reviewed- Non-Contributory -: L hand surgery(trigger finger),hysterectomy, temitope, -: bladder suspension, lithrotripsy -: pacemaker implanted -: tonsilectomy x2 -: left breast cyst and fibroid removal - Family History Father -: Heart disease, Hypertension, Diabetes, Stroke, Blood disorders Mother -: Lung disease, Cancer Sister Notes: bleed into brainstem - Social History Alcohol use: No CD- Drugs: No Caffeine use: No Review of Systems 10-point ROS is otherwise unremarkable Physical Examination - Vital Signs Temperature: 98.8 F Blood Pressure: 120/80 Pulse: 92 Respirations: 18 Pulse Ox (%): 94 - Physical Exam General: Alert, Oriented x3, Cooperative, Moderate distress HEENT: Atraumatic, Normocephalic Neck: Supple, JVD not distended Respiratory: Clear to auscultation bilaterally, Normal air movement Cardiovascular: Normal pulses, Regular rate/rhythm Capillary refill: <2 Seconds Gastrointestinal: W/out hepatosplenomegaly, Distended, Tenderness Musculoskeletal: No clubbing, No swelling Integumentary: No rashes Neurological: Normal speech, Normal strength at 5/5 x4 extr, Sensation intact Lymphatics: No axilla or inguinal lymphadenopathy - Studies Laboratory Data (last 24 hrs) 03/20/24 03/20/24 03/20/24 17:32 17:32 17:32 WBC 7.00 Hgb 13.1 Hct 39.0 Plt Count 211 PT 23.1 H INR 2.11 APTT 29.2 Sodium 135 L Potassium 3.7 BUN 17 Creatinine 1.50 H Glucose 211 H Total Bilirubin 0.6 AST 18 ALT 32 Alkaline Phosphatase 62 Lipase 23 Microbiology Data (last 24 hrs): 03/20/24 18:18 Nasopharnyx Influenza Type A Antigen Screen - Final 03/20/24 18:18 Nasopharnyx Influenza Type B Antigen Screen - Final Assessment and Plan - Plan Pancolitis CT findings noted Pain control Started on IV antibiotic IV hydration Monitor lactic acid levels Will obtain an cultures Will obtain C diff Hypertension Antihypertensives titrated Continue home medications and titrate as needed Hyperlipidemia Continue statin Diabetes Insulin sliding scale Accu-Chek before every meal and at bedtime Anemia of chronic disease Monitor H&H closely No overt bleeding at this time GI/DVT prophylaxis Advanced directive full code Discharge Plan: Home Plan to discharge in: 48 Hours - Advance Directives Does patient have a Living Will: No Does patient have a Durable POA for Healthcare: No - Code Status/Comfort Care Code Status: Full Code Time Spent Managing Pts Care (In Minutes): 48
[2024-03-20 22:33] LABS: Specific Gravity 1.024 (1.005-1.030); Sqamous Epithelial <5 /HPF (None Seen); Urine Bacteria None Seen /HPF (<20); Urine Bilirubin NEGATIVE (Negative); Urine Blood 1+ (Negative); Urine Clarity Turbid (Clear); Urine Color Light-Yellow (Yellow); Urine Culture Reflex Order NOT NEEDED; Urine Glucose NEGATIVE (Negative); Urine Ketones NEGATIVE (Negative); Urine Microscopic Reflex YN ORDER UMIC; Urine Mucus 2+ /HPF (None Seen); Urine Nitrite NEGATIVE (Negative); Urine Protein TRACE (Negative); Urine RBC <5 /HPF (None Seen); Urine Urobilinogen Normal (Normal); Urine WBC <5 /HPF (<5); Urine Yeast (Budding) Trace /HPF (None Seen); Urine pH 5.5 (5.0-7.0)
[2024-03-20 22:39] LABS: STOOL CONSISTENCY Liquid/Semi-Solid
[2024-03-20 22:40] LABS: C.diff Antigen/Toxin Ag neg : Tox neg (NEG : NEG); CDIFF INTERNAL NEG CONTROL White Background (WHITE BKGD)
[2024-03-20] MEDS: NA CHLORIDE 0.9% 1,000 ML IV SCH (23:25)
[2024-03-20] MEDS: METRONIDAZOLE 500mg IVPB 500 MG/100 ML BAG IV SCH (23:25)
[2024-03-21] MEDS: MORPHINE 2 MG/ML SYR IV PRN (00:03)
[2024-03-21] MEDS: PIPER TAZO 3.375 GM in NA CHLORIDE 0.9% 100 ML IV SCH (02:38)
[2024-03-21 07:51] LABS: Absolute Eosinophils 0.1 K/uL (0-0.5); Absolute Lymphocytes (CBC) 1.1 K/uL (0.7-4.9); Absolute Neutrophil 3.7 K/uL (1.8-8.0); Basophils % 0.6 % (0-1.3); Eosinophils % 1.2 % (0-4.4); Hemoglobin 11.4 g/dL (12.0-15.0); MCH 31.3 pg (27.0-35.0); MCHC 32.7 g/dL (32.0-36.0); MCV 95.7 fL (80-100); MPV 8.7 fL (7.6-11.3); Neutrophils % 62.2 % (41.7-73.7); Nucleated Red Blood Cells % 0.1 % (0-0); Platelets 185 thou/uL (152-406); RBC Red Blood Cell Count 3.66 M/uL (3.86-4.86); Red Cell Distribution Width 12.8 % (12.1-15.2)
[2024-03-21 08:11] LABS: Albumin 2.3 g/dL (3.4-5.0); Albumin/Globulin Ratio 0.6 (1.1-1.8); Anion Gap 6.4 mEq/L (5.0-15.0); Bilirubin Total 0.5 mg/dL (0.2-1.0); Globulin 3.6 g/dL (2.3-3.5); Potassium 3.4 mEq/L (3.5-5.1); Protein, Total 5.9 g/dL (6.4-8.2)
[2024-03-21] MEDS: POTASSIUM CL SA 10 MEQ TAB PO ONE (09:22)
--- NOTE | 2024-03-21 12:02 | P.PN ---
Subjective Date of Service: 03/21/24 Chief Complaint: abdominal pain Patient reports intermittent abdominal pain, rated at 7/10. She reports persistent frequent watery diarrhea, sometimes bloodstained. No recorded fever. No nausea or vomiting. Patient has been tolerating diet. Physical Examination - Vital Signs Temperature: 97.1 F Blood Pressure: 133/66 Pulse: 75 Respirations: 12 Pulse Ox (%): 99 - Studies Laboratory Data (last 24 hrs) 03/20/24 03/20/24 03/20/24 17:32 17:32 17:32 WBC 7.00 Hgb 13.1 Hct 39.0 Plt Count 211 PT 23.1 H INR 2.11 APTT 29.2 Sodium 135 L Potassium 3.7 BUN 17 Creatinine 1.50 H Glucose 211 H Total Bilirubin 0.6 AST 18 ALT 32 Alkaline Phosphatase 62 Lipase 23 Microbiology Data (last 24 hrs): 03/20/24 21:38 Stool Rotavirus Antigen - Final 03/20/24 18:18 Nasopharnyx Influenza Type A Antigen Screen - Final 03/20/24 18:18 Nasopharnyx Influenza Type B Antigen Screen - Final Assessment And Plan - Plan Physical examination General: Alert and oriented x3, NAD, obese. HEENT: Conjunctiva not pale, anicteric sclera Neck: Supple, no elevated JVD Heart: Heart sounds 1 and 2 normal, regular rhythm, normal rate, no pedal edema Lungs: Clear to auscultation bilaterally, adequate breath sounds bilaterally, no rhonchi or crackles. Abdomen: Soft, obese, nondistended, nontender, normal bowel sounds. Extremities: No tenderness, no deformity Skin: Normal skin turgor, no rash, no nodules or ulcers. Neuro: No focal motor deficit. Normal speech. Psychiatry: Normal mood, no agitation. Assessment and plan Pancolitis Unknown etiology-infectious versus inflammatory Stool for C. difficile is negative. Awaiting other stool studies-fecal leukocytes is pending. Patient with multiple medication allergies including Levaquin and Flagyl. Continue IV Zosyn IV hydration Diet as tolerated. Hypertension Patient is currently normotensive Hold antihypertensives for now due to risk of dehydration without diarrhea. Diabetes Insulin sliding scale Accu-Chek before every meal and at bedtime Anemia of chronic disease Monitor H&H History prothrombin gene mutation Continue Coumadin and monitor PT/INR. Acute kidney injury Prerenal secondary to dehydration. Renal function improved. Continue to monitor renal function. GI/DVT prophylaxis: SCD Advanced directive full code
[2024-03-21] MEDS: WARFARIN SODIUM 5 MG TAB PO SCH (16:26)
[2024-03-21] MEDS: ONDANSETRON 4 MG/2 ML VIAL IV PRN (19:11)
[2024-03-22 06:07] LABS: PT Prothrombin Time 22.9 SECONDS (9.4-12.5); Protime INR 2.09
[2024-03-22 06:10] LABS: Absolute Eosinophils 0.1 K/uL (0-0.5); Absolute Lymphocytes (CBC) 1.2 K/uL (0.7-4.9); Absolute Monocytes 0.5 K/uL (0.1-1.3); Absolute Neutrophil 2.3 K/uL (1.8-8.0); Eosinophils % 1.3 % (0-4.4); Hematocrit 31.2 % (36.0-45.0); Hemoglobin 10.2 g/dL (12.0-15.0); Lymphocytes % 29.8 % (15.3-44.8); MCH 31.3 pg (27.0-35.0); MCHC 32.7 g/dL (32.0-36.0); MCV 95.5 fL (80-100); MPV 8.4 fL (7.6-11.3); Monocytes % 12.6 % (3.3-12.3); Neutrophils % 55.3 % (41.7-73.7); Platelets 169 thou/uL (152-406); RBC Red Blood Cell Count 3.27 M/uL (3.86-4.86); Red Cell Distribution Width 12.9 % (12.1-15.2)
[2024-03-22 06:35] LABS: Anion Gap 7.7 mEq/L (5.0-15.0); Potassium 3.7 mEq/L (3.5-5.1)
[2024-03-22] MEDS: POTASSIUM CL SA 10 MEQ TAB PO ONE (08:10)
[2024-03-22] MEDS ORDERED: FLUOCINONIDE 0.05% CREAM 30GM TOP PRN (09:25)
[2024-03-22] MEDS ORDERED: ALBUTEROL 2.5 MG/3 ML NEB SOL NEB PRN (09:26)
[2024-03-22] MEDS: FLUTICASONE 50MCG NASAL SPRAY NAS SCH (09:29)
[2024-03-22] MEDS: PROMETHAZINE INJ 25 MG/ML AMP IV ONE (11:16)
[2024-03-22] MEDS: hydroCHLOROthiazide 25 MG TAB PO SCH (11:17)
[2024-03-22] MEDS: VITAMIN D 5,000 UNIT CAP PO SCH (11:17)
[2024-03-22] MEDS ORDERED: FLUTICASONE 50MCG NASAL SPRAY NAS PRN (11:22)
--- NOTE | 2024-03-22 12:39 | P.PN ---
Subjective Date of Service: 03/22/24 Chief Complaint: abdominal pain Patient reports persistent frequent watery diarrhea, sometimes bloodstained. Patient reports abdominal cramps and associated nausea. No vomiting. No recorded fever. Physical Examination - Vital Signs Temperature: 97.9 F Blood Pressure: 107/55 Pulse: 68 Respirations: 12 Pulse Ox (%): 100 - Studies Microbiology Data (last 24 hrs): 03/20/24 21:38 Stool Fecal Leukocyte Stain - Final Assessment And Plan - Plan Physical examination General: Alert and oriented x3, NAD, obese. HEENT: Conjunctiva not pale, anicteric sclera Heart: Heart sounds 1 and 2 normal, regular rhythm, normal rate, no pedal edema Lungs: Clear to auscultation bilaterally, adequate breath sounds bilaterally, no rhonchi or crackles. Abdomen: Soft, obese, nondistended, tender, normal bowel sounds. Extremities: No tenderness, no deformity Skin: Normal skin turgor, no rash, no nodules or ulcers. Neuro: No focal motor deficit. Normal speech. Psychiatry: Normal mood, no agitation. Assessment and plan Pancolitis Unknown etiology-infectious versus inflammatory. Stool fecal leukocyte is positive Stool for C. difficile is negative. Continue IV Zosyn, Flagyl added. IV hydration Clear liquid diet for now. Analgesics and antiemetics as needed. Hypertension Patient is currently normotensive Hold antihypertensives for now due to risk of dehydration without diarrhea. Diabetes Insulin sliding scale Accu-Chek before every meal and at bedtime Anemia of chronic disease Monitor H&H History prothrombin gene mutation Continue Coumadin and monitor PT/INR. Acute kidney injury Prerenal secondary to dehydration. HARRIET resolved Continue to monitor renal function. GI/DVT prophylaxis: SCD Advanced directive full code
[2024-03-22] MEDS: OXYCODONE HCL 5 MG TAB PO PRN (13:54)
[2024-03-22] MEDS: DIPHENHYDRAMINE 25 MG TAB/CAP PO PRN (21:37)
[2024-03-23] MEDS: LEVOTHYROXINE SOD 0.025 MG TAB PO SCH (05:30)
[2024-03-23 05:39] LABS: Absolute Eosinophils 0.1 K/uL (0-0.5); Absolute Lymphocytes (CBC) 1.9 K/uL (0.7-4.9); Absolute Monocytes 0.6 K/uL (0.1-1.3); Absolute Neutrophil 3.3 K/uL (1.8-8.0); Basophils % 0.7 % (0-1.3); Eosinophils % 1.8 % (0-4.4); Hematocrit 31.2 % (36.0-45.0); Hemoglobin 10.1 g/dL (12.0-15.0); Lymphocytes % 31.5 % (15.3-44.8); MCH 31.1 pg (27.0-35.0); MCHC 32.2 g/dL (32.0-36.0); MCV 96.5 fL (80-100); Nucleated Red Blood Cells % 0.2 % (0-0); Platelets 215 thou/uL (152-406); RBC Red Blood Cell Count 3.24 M/uL (3.86-4.86); Red Cell Distribution Width 13.3 % (12.1-15.2)
[2024-03-23 05:41] LABS: PT Prothrombin Time 26.6 SECONDS (9.4-12.5); Protime INR 2.44
[2024-03-23 06:08] LABS: Anion Gap 6.7 mEq/L (5.0-15.0)
[2024-03-23 06:09] LABS: Potassium 3.7 mEq/L (3.5-5.1)
[2024-03-23 07:03] LABS: Blood Morphology Comment NOT SEEN (NOT SEEN); Platelet Estimate ADEQ; White Blood Cell Scan OK (OK)
[2024-03-23] MEDS: POTASSIUM CL SA 10 MEQ TAB PO ONE (08:58)
[2024-03-23] MEDS: HOME MED 1 EA UNK (Vitamin B Complex [B Complex] Tablet) PO SCH (08:59)
--- NOTE | 2024-03-23 10:03 | EKG ---
Test Date: 2024-03-20 Test Time: 19:10:32 Bench Repair Technician: AF MEASUREMENT RESULTS: Intervals: Rate: 99 TN: 140 QRSD: 88 QT: 344 QTc: 441 [place]: P: 58 TN: 140 QRS: -39 T: 51 INTERPRETIVE STATEMENTS: Sinus rhythm with premature atrial complexes Left axis deviation Abnormal ECG Compared to ECG 08/24/2021 19:07:56 Atrial premature complex(es) now present Left-axis deviation now present Electronically Signed On 03-23-24 10:01:50 CDT by Brian Weiss
--- NOTE | 2024-03-23 12:28 | RAD REPORT ---
EXAM DESCRIPTION: CT - Abdomen Pelvis W Contrast - 03/23/2024 11:34 am CLINICAL HISTORY: Follow up colitis. Distended abdomen COMPARISON: Abdomen Pelvis W Contrast dated 03/20/2024 TECHNIQUE: Thin cut axial CT imaging of the abdomen and pelvis was performed following intravenous a dministration of 100 mL Isovue 300. Multiplanar reformats were generated and reviewed. All CT scans are performed using dose optimization technique as appropriate and may include automated exposure control or mA/KV adjustment according to patient size. FINDINGS: No suspicious findings in the lung bases. The liver, spleen, adrenal glands, and pancreas show no suspicious findings. Status post cholecystect sharlene. Symmetric renal function is seen with no hydronephrosis or suspicious renal mass. No dilated bowel loops partial improvement of wall thickening throughout segments of the large bowel. Prominent wall thickening still persists along the sigmoid colon. Appendix is unremarkable. No free air, free fluid or inflammatory stranding. No hernia, mass or bulky lymphadenopathy. The urinary blad dell is without significant finding. No suspicious bony findings. IMPRESSION: Partial improvement of wall thickening throughout the large bowel with the exception of the sigmoid colon, suggesting partially improving pancolitis. No other acute intra- abdominal process.
[2024-03-23] MEDS: Meropenem 1,000 MG in NA CHLORIDE 0.9% 100 ML IV SCH (13:01)
--- NOTE | 2024-03-23 14:45 | P.PN ---
Subjective Date of Service: 03/23/24 Chief Complaint: abdominal pain Patient reports her diarrhea frequency have reduced. She states that her stool is not bloodstained today. She reports persistent intermittent abdominal cramps. No vomiting. No recorded fever. Physical Examination - Vital Signs Temperature: 97.9 F Blood Pressure: 139/67 Pulse: 75 Respirations: 16 Pulse Ox (%): 100 - Studies Microbiology Data (last 24 hrs): 03/20/24 21:38 Stool Culture & Sensitivity - Final Assessment And Plan - Plan Physical examination General: Alert and oriented x3, NAD. HEENT: Anicteric sclera Heart: Heart sounds 1 and 2 normal, regular rhythm, normal rate, no pedal edema Lungs: Clear to auscultation bilaterally, adequate breath sounds bilaterally, no rhonchi or crackles. Abdomen: Soft, obese, nondistended, diffuse tender, normal bowel sounds. Extremities: No tenderness, no deformity. Skin: Normal skin turgor, no rash, no nodules or ulcers. Neuro: No focal motor deficit. Normal speech. Psychiatry: Normal mood, no agitation. Assessment and plan Pancolitis Unknown etiology-infectious versus inflammatory. Stool fecal leukocyte is positive Stool for C. difficile is negative. Repeat CT abdomen and pelvis result reviewed and noted some improvement in pancolitis. Change antibiotics to IV meropenem and Flagyl due to slow response IV hydration Clear liquid diet for now. GI consulted, I spoke to Dr. Weems. Analgesics and antiemetics as needed. Hypertension Patient is currently normotensive Hold antihypertensives for now due to risk of dehydration without diarrhea. Diabetes Insulin sliding scale Accu-Chek before every meal and at bedtime Anemia of chronic disease Monitor H&H History prothrombin gene mutation INR is therapeutic Continue current dose Coumadin and monitor PT/INR. Acute kidney injury Prerenal secondary to dehydration. HARRIET resolved Continue to monitor renal function. GI/DVT prophylaxis: On Coumadin. Advanced directive full code
[2024-03-24 05:00] VITALS: BMI 34.2
--- NOTE | 2024-03-24 06:57 | P.PN ---
Date of Service: 03/24/24 Subjective: diarrhea improving, less volume and frequency slightly reports some nausea this morning but not as bad compared to few days ago had colonoscopy in Jul 2023 that was reportedly okay per patient. EGD with gastritis / esophagitis tolerating diet without issues afebrile ROS: 10 point ROS as noted above, otherwise negative Physical Exam: GEN: Alert, oriented, NAD HEENT: Normal conjunctiva, sclera anicteric CV: Regular rate and rhythm, no edema ABD: Soft, diffuse tenderness, nondistended Neuro: Normal speech, normal affect vitals reviewed Problem List: Pancolitis HARRIET; Prerenal secondary to dehydration Hypertension NIDDM2 Anemia of chronic disease Hx prothrombin gene mutation Pancolitis Unknown etiology-infectious versus inflammatory. CT abdomen (03/20): moderate pancolitis Repeat CT abdomen (03/23): partial improvement throughout the large bowel with exception of sigmoid colon IV zosyn / flagyl (03/20-03/23) switched to IV merrem 03/23 given slow response continue IV merrem (03/23-) Dr. Weems consulted IV steroids added 03/24 to cover possible inflammatory bowel disease Stool fecal leukocyte is positive; C.diff negative., O&P pending Continue IV fluids - half rate 03/24 diet as tolerated Pain control HARRIET; Prerenal secondary to dehydration Continue to monitor renal function. HARRIET resolved Hypertension Patient is currently normotensive Hold antihypertensives for now NIDDM2 Insulin sliding scale Accu-Chek before every meal and at bedtime Anemia of chronic disease Stable. Daily labs Hx prothrombin gene mutation INR supratherapeutic, hold coumadin 03/24 VTE: home warfarin Code: Full Dispo: Home pending improvement of diarrhea, nausea. Tolerating diet Time Spent Managing Pts Care (In Minutes): 41
[2024-03-24 07:05] LABS: Absolute Basophils 0.1 K/uL (0-0.5); Absolute Eosinophils 0.1 K/uL (0-0.5); Absolute Lymphocytes (CBC) 2.1 K/uL (0.7-4.9); Absolute Monocytes 0.7 K/uL (0.1-1.3); Absolute Neutrophil 4.2 K/uL (1.8-8.0); Basophils % 1.1 % (0-1.3); Eosinophils % 1.7 % (0-4.4); Hematocrit 31.5 % (36.0-45.0); Hemoglobin 10.6 g/dL (12.0-15.0); Lymphocytes % 28.9 % (15.3-44.8); MCH 31.9 pg (27.0-35.0); MCHC 33.7 g/dL (32.0-36.0); MCV 94.5 fL (80-100); MPV 8.7 fL (7.6-11.3); Monocytes % 9.1 % (3.3-12.3); Neutrophils % 59.2 % (41.7-73.7); Nucleated Red Blood Cells % 0.1 % (0-0); Platelets 276 thou/uL (152-406); RBC Red Blood Cell Count 3.33 M/uL (3.86-4.86); Red Cell Distribution Width 13.3 % (12.1-15.2)
[2024-03-24 07:08] LABS: PT Prothrombin Time 36.9 SECONDS (9.4-12.5); Protime INR 3.41
[2024-03-24 07:37] LABS: Anion Gap 7.6 mEq/L (5.0-15.0); Magnesium 1.4 mg/dL (1.6-2.4); Potassium 3.6 mEq/L (3.5-5.1)
[2024-03-24 08:36] LABS: Band Neutrophils 7 % (0-1); Blood Morphology Comment NOT SEEN (NOT SEEN); Differential Total Cells Count 100; Eosinophils 2 % (0-3); Lymphocytes 24 % (15-42); Monocytes 11 % (0-10); Nucleated Red Blood Cells 2 /100WBC; Platelet Estimate ADEQ; Reactive Lymphocytes 1 %; Segmented Neutrophils 54 % (40-80)
[2024-03-24] MEDS: POTASSIUM CL SA 10 MEQ TAB PO ONE (08:46)
[2024-03-24] MEDS: MAGNESIUM SULFATE 1 gm IVPB 1 GM/100 ML BAG IV ONE (08:46)
[2024-03-24] MEDS: METHYLPREDNISOLONE 40 MG INJ IV SCH (11:04)
[2024-03-24] MEDS ORDERED: WARFARIN SODIUM 5 MG TAB PO SCH (17:00)
[2024-03-24] MEDS: NA CHLORIDE 0.9% 1,000 ML IV SCH (17:58)
[2024-03-24] MEDS: INSULIN REGULAR (HUMAN) 100 UNIT/ML SQ SCH (20:39)
[2024-03-25 05:45] LABS: Hematocrit 32.3 % (36.0-45.0); Hemoglobin 10.6 g/dL (12.0-15.0); MCH 31.4 pg (27.0-35.0); MCHC 32.7 g/dL (32.0-36.0); MCV 95.9 fL (80-100); MPV 8.9 fL (7.6-11.3); Platelets 265 thou/uL (152-406); RBC Red Blood Cell Count 3.37 M/uL (3.86-4.86); Red Cell Distribution Width 13.1 % (12.1-15.2)
[2024-03-25 05:49] LABS: PT Prothrombin Time 33.5 SECONDS (9.4-12.5); Protime INR 3.09
[2024-03-25 06:02] LABS: Anion Gap 7.2 mEq/L (5.0-15.0); Magnesium 1.7 mg/dL (1.6-2.4); Potassium 4.2 mEq/L (3.5-5.1)
[2024-03-25] MEDS: MAGNESIUM SULFATE 1 gm IVPB 1 GM/100 ML BAG IV ONE (08:53)
[2024-03-25] MEDS: INSULIN GLARGINE 100 UNIT/ML SQ SCH (08:54)
[2024-03-25 12:07] VITALS: O2SAT 97
--- NOTE | 2024-03-25 12:23 | P.DS ---
Admission Date: 03/20/24 Discharge Date: 03/25/24 Disposition: ROUTINE DISCHARGE Discharge Condition: GOOD Reason for Admission: abdominal pain Consultations: GI - Dr. Weems Brief History of Present Illness: 59 yo F, PMH: atrial fibrillation, asthma, chronic bronchitis, sleep apnea, history of CVA, depression, diabetes, fibromyalgia, hyperlipidemia, hypoparathyroidism, hypertension, CAD, prothrombin gene mutation, vitamin D deficiency Patient was brought to ER with abdominal discomfort. The patient presents with abdominal pain that is diffuse. Started 4 days ago, is diffuse, no radiation, nausea vomiting diarrhea present. Subjective fever present. Patient denies any chest pain shortness of breath. Patient was assessed in the ER and was found to have pancolitis in CT and was admitted for further management Hospital Course: Problem List: Pancolitis HARRIET, Prerenal secondary to dehydration; resolved Hypertension NIDDM2 Anemia of chronic disease Hx prothrombin gene mutation Physician discharge instructions: Patient presented with worsening abdominal pain associated with nausea/vomiting/diarrhea, secondary to pancolitis, seen on CT imaging. She was given empiric antibiotics, IV fluids, and had some improvement of her symptoms. Diarrhea improved with time. Patient was feeling better, abdominal discomfort improving, diarrhea improved, remained afebrile without leukocytosis, and was deemed stable for discharge. Follow up with GI in near future for further discussion and consider repeat co lonoscopy once acute infxn has resolved to reevaluate. Patient is to complete 7 more days of augmentin on discharge. Dr. Weems, GI, was consulted and recommended trial of IV steroids to cover possible inflammatory bowel disease. Patient is to complete ~11 day taper course of prednisone on discharge. She was noted to have a mild HARRIET on admission with serum creatinine 1.50 and had quick resolution with IV hydration. Pre-renal HARRIET secondary to dehydration. INR on discharge: 3.09. Advised to check INR tomorrow. If INR > 3, advised to hold off on taking coumadin that day. Monitor INR levels closely over the next week. In regards to diabetic medication: Advised to hold off on metformin for now and to only take glipizide for now. Check glucose around the same time each day before and after meals. Keep daily log of readings to take to follow up appointments. Medications: prednisone - Take 1 tablet (20 mg) for 5 days, then 1/2 tablet (10 mg) for 6 days Augmentin twice daily for 7 days Okay to take an over the counter probiotic while on antibiotics Stop metformin as discussed above. Follow up: PCP 3-5 days GI in 2-4 weeks in office Please call to schedule / confirm appointments Physical Exam: GEN: Alert, oriented, NAD HEENT: Normal conjunctiva, sclera anicteric CV: Regular rate and rhythm, no edema ABD: Soft, diffuse tenderness, nondistended Neuro: Normal speech, normal affect Vital Signs/Physical Exam: Temp Pulse Resp BP Pulse Ox 98.0 F 60 18 147/89 H 97 03/25/24 08:00 03/25/24 08:00 03/25/24 08:00 03/25/24 08:00 03/25/24 08:00 Laboratory Data at Discharge: WBC 7.00 thou/uL (4.3-10.9) 03/25/24 05:20 Hgb 10.6 g/dL (12.0-15.0) L 03/25/24 05:20 Hct 32.3 % (36.0-45.0) L 03/25/24 05:20 Plt Count 265 thou/uL (152-406) 03/25/24 05:20 PT 33.5 SECONDS (9.4-12.5) H 03/25/24 05:20 INR 3.09 03/25/24 05:20 APTT 29.2 SECONDS (24.3-36.9) 03/20/24 17:32 Sodium 139 mEq/L (136-145) 03/25/24 05:20 Potassium 4.2 mEq/L (3.5-5.1) D 03/25/24 05:20 BUN 14 mg/dL (7-18) 03/25/24 05:20 Creatinine 0.85 mg/dL (0.55-1.02) 03/25/24 05:20 Glucose 307 mg/dL (74-106) H 03/25/24 05:20 Magnesium 1.7 mg/dL (1.6-2.4) 03/25/24 05:20 Total Bilirubin 0.5 mg/dL (0.2-1.0) 03/21/24 07:06 AST 16 U/L (15-37) 03/21/24 07:06 ALT 26 U/L (13-56) 03/21/24 07:06 Alkaline Phosphatase 54 U/L (45-117) 03/21/24 07:06 Lipase 23 U/L (13-75) 03/20/24 17:32 Home Medications: Metformin HCl [Metformin ER Osmotic] 1,000 mg PO BID 07/08/12 Albuterol Inhaler [Ventolin Inhaler*] 2 puff IH Q6H PRN 10/12/14 hydroCHLOROthiazide [Hydrodiuril*] 25 mg PO DAILY #30 tab 09/20/15 Aspirin [Low Dose Aspirin EC] 81 mg PO SEECOM 08/25/21 Cholecalciferol (Vitamin D3) [Vitamin D3] 1 cap PO DAILY 08/25/21 Vitamin B Complex [B Complex] 2 tab PO DAILY 08/25/21 Warfarin Sodium [Jantoven] 5 mg PO DAILY 08/25/21 Glipizide [Glipizide ER] 5 mg PO BID 03/22/24 Levothyroxine Sodium 25 mcg PO DAILY 03/22/24 Oxycodone HCl 5 mg PO BID 03/22/24 Valsartan 160 mg PO DAILY 03/22/24 Warfarin Sodium 5 mg PO DAILY 03/22/24 methocarbamoL [Methocarbamol] 750 mg PO BID 03/22/24 Amox/Clavulanate [Augmentin 875-125 Tab] 1 tab PO BID 7 Days #14 tab 03/25/24 predniSONE [Deltasone] 20 mg PO SEECOM 11 Days #8 tab 03/25/24 New Medications: Amox/Clavulanate [Augmentin 875-125 Tab] 1 tab PO BID 7 Days #14 tab predniSONE [Deltasone] 20 mg PO SEECOM 11 Days #8 tab Physician Discharge Instructions: Physician discharge instructions: Patient presented with worsening abdominal pain associated with nausea/vomiting/diarrhea, secondary to pancolitis, seen on CT imaging. She was given empiric antibiotics, IV fluids, and had some improvement of her symptoms. Diarrhea improved with time. Patient was feeling better, abdominal discomfort improving, diarrhea improved, remained afebrile without leukocytosis, and was deemed stable for discharge. Follow up with GI in near future for further discussion and consider repeat colonoscopy once acute infxn has resolved to reevaluate. Patient is to complete 7 more days of augmentin on discharge. Dr. Weems, GI, was consulted and recommended trial of IV steroids to cover possible inflammatory bowel disease. Patient is to complete ~11 day taper course of prednisone on discharge. She was noted to have a mild HARRIET on admission with serum creatinine 1.50 and had quick resolution with IV hydration. Pre-renal HARRIET secondary to dehydration. INR on discharge: 3.09. Advised to check INR tomorrow. If INR > 3, advised to hold off on taking coumadin that day. Monitor INR levels closely over the next week. In regards to diabetic medication: Advised to hold off on metformin for now and to only take glipizide for now. Check glucose around the same time each day before and after meals. Keep daily log of readings to take to follow up appointments. Medications: prednisone - Take 1 tablet (20 mg) for 5 days, then 1/2 tablet (10 mg) for 6 days Augmentin twice daily for 7 days Okay to take an over the counter probiotic while on antibiotics Stop metformin as discussed above. Follow up: PCP 3-5 days GI in 2-4 weeks in office Please call to schedule / confirm appointments Followup: Humphrey Weems MD [ACTIVE - CAN ADMIT] - 1-2 Weeks Shanice Rooney MD [Primary Care Provider] - 1-2 Weeks Time spent managing pt's care (in minutes): 45
[2024-03-25 14:18] VITALS: BP 132/80; TEMP 97
[2024-03-25] MEDS ORDERED: AMOX/K CLAV 875 MG TAB PO SCH (17:00)
[2024-03-25] MEDS ORDERED: WARFARIN SODIUM 5 MG TAB PO SCH (17:00)
[2024-03-25] MEDS ORDERED: WARFARIN SODIUM 3 MG TAB PO SCH (17:00)
[2024-03-26] MEDS ORDERED: WARFARIN SODIUM 5 MG TAB PO SCH (17:00)
== END 2024-03-25 13:40 | disposition home or self-care (01) | DRG 683 ==
LOC: ER 16:36 → 2ND 22:07
PROVIDERS: ADMIT Family Medicine; ATTEND Hospitalist
DX: N17.9 Acute kidney failure, unspecified (principal); Z68.42 Body mass index [BMI] 45.0-49.9, adult; E66.9 Obesity, unspecified; E86.0 Dehydration; K52.9 Noninfective gastroenteritis and colitis, unspecified; D63.8 Anemia in other chronic diseases classified elsewhere; I10 Essential (primary) hypertension; M79.7 Fibromyalgia; I48.91 Unspecified atrial fibrillation; E78.00 Pure hypercholesterolemia, unspecified; E11.51 Type 2 diabetes mellitus with diabetic peripheral angiopathy without gangrene; I25.10 Atherosclerotic heart disease of native coronary artery without angina pectoris; I25.2 Old myocardial infarction; Z95.0 Presence of cardiac pacemaker; Z88.5 Allergy status to narcotic agent; Z88.2 Allergy status to sulfonamides; Z88.1 Allergy status to other antibiotic agents; Z88.8 Allergy status to other drugs, medicaments and biological substances; Z79.82 Long term (current) use of aspirin; Z11.52 Encounter for screening for COVID-19; Z79.52 Long term (current) use of systemic steroids; Z79.84 Long term (current) use of oral hypoglycemic drugs; Z86.73 Personal history of transient ischemic attack (TIA), and cerebral infarction without residual deficits; Z91.040 Latex allergy status; Z79.899 Other long term (current) drug therapy
CPT/HCPCS: 36415; 71045; 74177; 80048; 80053; 81001; 82947; 83605; 83690; 83735; 85025; 85027; 85610; 85730; 87040; 87045; 87046; 87177; 87209; 87324; 87425; 87804; 87811; 89055; 93005; 94760; 96361; 96365; 96375; 99285; J2185; J2270; J2405; J2543; J2550; J2919; J3010; J3475; J7030; Q9967